=== PATIENT | female | born 1945 ===

== ENCOUNTER → 2023-10-09 10:19 | Outpatient (BNVA) | payer OTHER, MEDICAID, SELFPAY | PROVIDERS: PCP Internal Medicine; Referring Provider Internal Medicine; Visit Provider Physician Assistant Surgical | DX: J44.9 Chronic obstructive pulmonary disease, unspecified (principal); J96.91 Respiratory failure, unspecified with hypoxia; Z87.891 Personal history of nicotine dependence | CPT/HCPCS: 99215 ==

== ENCOUNTER → 2024-03-16 14:19 | Outpatient (BNVA) | payer MEDICARE, MEDICAID, SELFPAY | PROVIDERS: PCP Internal Medicine; Referring Provider Internal Medicine; Visit Provider Physician Assistant Surgical | DX: J44.9 Chronic obstructive pulmonary disease, unspecified (principal); J96.91 Respiratory failure, unspecified with hypoxia; Z87.891 Personal history of nicotine dependence | CPT/HCPCS: 99214 ==

== ENCOUNTER 2024-07-23 14:28 | Outpatient (REF) | payer MEDICARE, MEDICAID, SELFPAY ==
[2024-07-23 16:07] LABS: ALT 16 U/L (14-59); AST 22 U/L (15-37); Alkaline Phosphatase 78 U/L (46-116); BUN 18 mg/dL (7-18); Bilirubin, Total 0.2 mg/dL (0.2-1.0); CREATININE 0.4 mg/dL (0.55-1.02); Calcium 8.5 mg/dL (8.5-10.1); Chloride 96 mmol/L (98-107); Estimated GFR 101.87 (mL/min/1.73m2); Glucose 95 mg/dL (74-106); Sodium 135 mmol/L (136-145); Total Protein 5.9 g/dL (6.4-8.2)
== END 2024-07-23 14:29 | disposition home or self-care (01) ==
LOC: LBN 14:28
PROVIDERS: PCP Internal Medicine; Visit Provider Family Medicine Geriatric Medicine
DX: E78.5 Hyperlipidemia, unspecified (principal)
CPT/HCPCS: 80053

== ENCOUNTER 2024-08-03 09:48 | Inpatient (IN) | payer MEDICARE, MEDICAID, SELFPAY ==
[2024-08-03] VITALS (41 sets, daily range): BP systolic 116–146; BP diastolic 49–82; PULSE 62–129; RESP 5–29; TEMP 36.1–36.9; O2SAT 62–97
--- NOTE | 2024-08-03 09:45 | DI.RAD_ITS ---
Exam(s) XR CHEST 2V PA LATERAL EXAM: XR CHEST 2V PA LATERAL CLINICAL HISTORY: Shortness of breath TECHNIQUE: 2D digital imaging was performed. Two views. COMPARISON: CT CT CHEST WO CONTRAST from 11/02/2021 CR XR CHEST 1 VW from 01/31/2022 FINDINGS: HEART: Normal size. Aorta: Not dilated. PULMONARY VASCULATURE: Normal. MEDIASTINUM: Unremarkable. LUNGS: Jose emphysematous and fibrotic changes. No focal infiltrate or pulmonary edema. PLEURAL SPACE: No pleural effusion or pneumothorax. BONE:Multiple mid thoracic compression fractures. They appear to have worsened compared with the pre vious CT. SOFT TISSUES: Unremarkable. IMPRESSION: Emphysematous and fibrotic changes. No acute abnormality. DATA REPOSITORY: RADIATION DOSE DELIVERED:
--- NOTE | 2024-08-03 09:45 | RT.EKG_ITS ---
APPROVED REPORT Exam: Resting ECG Reason for Exam: Shortness of breath Patient Location: E HR:94 bpm ECG Measurements Heart Rate 94 AXIS CA 107 P 59 QRSd 86 QRS 22 QT 349 T 72 QTc 430 Conclusion Sinus rhythm...normal P axis, V-rate 60- 99 Atrial premature complex...SV complex w/ short R-R interval No STEMI
--- NOTE | 2024-08-03 09:55 | W.ED.GENAD ---
Discharge Plan Disposition Patient Disposition: Admit to [facility] Discharge Details Chief Complaint: RespSymp Clinical Impression: Acute respiratory failure with hypoxia and hypercarbia, COPD with acute exacerbation Admit Date/Time: 08/03/24 13:45 Admit Provider: Adilson Rodriguez Attending Provider: Adilson Rodriguez Primary Care Provider: Federico Ny ED Provider: Adilson Villalobos Discharge Data Discharge Date/Time-TO BE ENTERED AT DEPARTURE: 08/03/24 14:59 HPI General Date/Time Provider Initiated Documentation: 08/03/24 09:52. HPI Narrative: MDM This is an overall well-appearing normothermic and not tachycardic 79-year-old female with history of COPD emphysema prolonged expiratory phase with history and physical most consistent with acute COPD exacerbation for which patient will receive steroids and doxycycline. Will obtain 2 view chest x-ray to assess for pneumonia. Will also obtain ECG and troponin testing to assess for ACS. PE is on the differential and patient is low risk but not PERC negative based on age so we will obtain a D-dimer. No tearing quality to chest pain to suggest aortic dissection. No history of recent emesis to suggest increased risk for esophageal rupture. No lower extremity edema nor history of heart failure to suggest acute CHF so will defer diuresis. No trauma to chest to suggest pneumothorax. Will swab for influenza COVID and RSV. Not hypotensive nor a dialysis patient making my suspicion low for tamponade. No black no bloody stools no anticoagulation to suggest acute GI bleed. No recent chiropractic manipulation to suggest increased risk for cervical arterial dissection. Headache was not maximal in onset so I am not suspicious for subarachnoid hemorrhage I do not feel patient requires a CT of her head. Patient is not altered to suggest encephalitis. No nuchal rigidity to suggest meningitis. No generator exposure to suggest carbon monoxide toxicity. 10:42 AM CBC with normocytic anemia. No thrombocytopenia. No leukocytosis. Venous blood gas with no acidemia but moderate hypercarbia. No prior for comparison. 11 AM Reassuring initial troponin. Creatinine without ELVIA. Persistent elevation of bicarb. Mild hyperglycemia but no anion gap?test not consistent with DKA. Will repeat 1 hour troponin. Patient has been stable on home oxygen. 1:30 PM Patient had had a reassuring evaluation in the emergency department. Upon attempting an ambulatory trial patient became tachycardic into the 130s diaphoretic and hypoxic into the 60s. She recovered and is back on her 3 L nasal cannula however she will require hospitalization. Will treat for pneumonia and COPD exacerbation with amoxicillin and prednisone and doxycycline respectively. I was in touch with Dr. Rodriguez who graciously agreed to accept the patient for hospitalization. Will defer rescue BiPAP. HPI This is a 79-year-old female on chronic 3 L home oxygen arriving via EMS from local long term facility in setting of shortness of breath. Patient has had increasing shortness of breath over the past several days. She has been bringing up more sputum. She developed a gradual headache over the past several days. She has no history of heart failure. She denies any trauma to her head. She received a breathing treatment prior to arrival. Exam General: Elderly-appearing in no acute distress speaking in complete sentences. Wearing nasal cannula 3 L. Head: Normocephalic, atraumatic. Eye: Extraocular eye movements intact. No conjunctival injection. No scleral icterus. Ear, nose, mouth, throat: Grossly normal inspection. Normal voice, handling secretions normally. Neck: Trachea midline. Cardiovascular: Well-perfused distal extremities. Regular rate and rhythm Respiratory: Nonlabored respiration. Diffuse coarse breath sounds with prolonged expiratory phase. Gastrointestinal: Nondistended abdomen. Musculoskeletal: No significant lower extremity edema. Moving all 4 extremities spontaneously. Skin: Normal for age and race, grossly normal temperature and turgor. No acute rash. Neurologic: Alert and appropriate, no apparent acute deficits. Related Data Home Medications ?Medication ?Instructions ?Recorded ?Confirmed albuterol sulfate 2.5 mg/3 mL 2.5 mg inhalation QID PRN 02/06/22 08/03/24 (0.083 %) solution for nebulization amlodipine 2.5 mg tablet 2.5 mg PO DAILY 02/06/22 08/03/24 atorvastatin 20 mg tablet 20 mg PO DAILY 02/06/22 08/03/24 calcium 600 mg (as carbonate)-vit 1 tab PO BID 02/06/22 08/03/24 D3 10 mcg (400 unit)-minerals tablet citalopram 20 mg tablet 20 mg PO DAILY 02/06/22 08/03/24 docusate sodium 100 mg capsule 200 mg PO DAILY 02/06/22 08/03/24 fluticasone propionate 50 2 spray intranasal DAILY 10/12/22 04/08/25 mcg/actuation nasal spray,suspension levalbuterol tartrate 45 2 inh inhalation .Q6-8H PRN 02/06/22 08/03/24 mcg/actuation aerosol inhaler lorazepam 1 mg tablet 1 mg PO DAILY PRN 02/06/22 08/03/24 naloxone 4 mg/actuation nasal 1 spray intranasal Q2M PRN 02/06/22 08/03/24 spray (Narcan) naproxen sodium 220 mg tablet 440 mg PO ONCE PRN 02/06/22 08/03/24 (Aleve) omeprazole 40 mg capsule,delayed 40 mg PO BID 02/06/22 08/03/24 release ondansetron 8 mg disintegrating 8 mg PO Q8H PRN 02/06/22 08/03/24 tablet polyethylene glycol 3350 17 17 g PO DAILY PRN 02/06/22 08/03/24 gram/dose oral powder (Miralax) sennosides 8.6 mg tablet (senna) 34.4 mg PO DAILY 02/06/22 08/03/24 umeclidinium 62.5 mcg/actuation 1 inh inhalation DAILY 02/06/22 08/03/24 blister powder for inhalation (Incruse Ellipta) fluticasone 500 mcg-salmeterol 50 See Rx Instructions .Route 07/19/22 08/03/24 mcg/dose blistr powdr for .COMPLEX #60 ea inhalation (Advair Diskus) hydroxyzine HCl 50 mg tablet 50 mg PO TID 03/16/24 08/03/24 benralizumab 30 mg/mL subcutaneous 30 mg subcut Q4W #1 mL 05/03/24 08/03/24 auto-injector (Fasenra Pen) aspirin 81 mg tablet,delayed 81 mg PO DAILY 08/03/24 08/03/24 release (Enteric Coated Aspirin) gabapentin 100 mg capsule 200 mg PO BID 08/03/24 08/03/24 prednisone 20 mg tablet 20 mg PO DAILY 08/03/24 08/03/24 Previous Rx's ?Medication ?Instructions ?Recorded fluticasone 500 mcg-salmeterol 50 See Rx Instructions .Route 07/19/22 mcg/dose blistr powdr for .COMPLEX #60 ea inhalation (Advair Diskus) benralizumab 30 mg/mL subcutaneous 30 mg subcut Q4W #1 mL 05/03/24 auto-injector (Fasenra Pen) Allergies Allergy/AdvReac Type Severity Reaction Status Date / Time acetaminophen AdvReac Unknown Difficulty Verified 08/03/24 10:09 breathing ,sweating Medical Decision Making Quality:SDOH Health Related Social Needs: No Data to Display Critical Care Time Critical Care Time Critical Care Time: Yes Total Critical Care Time: 30 Attestation: Bedside assessment of respiratory failure with hypoxia PFSH All Active Problems (Updated 08/03/24 @ 16:03 by Adilson Villalobos MD) COPD with acute exacerbation (Acute) Acute respiratory failure with hypoxia and hypercarbia (Acute) Respiratory failure with hypoxia (Chronic) Asthma-COPD overlap syndrome (Acute) Personal history of nicotine dependence (Acute) Urge incontinence of urine (Acute) TBI (traumatic brain injury) (Acute) Peripheral edema (Acute) Neck pain (Acute) Insomnia (Acute) Hyponatremia (Acute) Hyperlipidemia (Acute) History of CVA (cerebrovascular accident) (Acute) Hiatal hernia (Chronic) Headache (Acute) Fracture of shoulder (Acute) Dyspnea on exertion (Acute) Diarrhea (Acute) Constipation (Acute) Closed fracture of left proximal humerus (Acute) Chronic rhinitis (Acute) Chronic constipation (Acute) Asthma (Chronic) Arthropathy (Acute) Anxiety (Chronic) Abdominal pain (Acute) Medical History (Updated 08/03/24 @ 16:03 by Adilson Villalobos MD) Pneumonia Surgical History (Updated 02/06/22 @ 13:41 by Ghislaine Paredes) Hx of cataract Surgery Hx of cholecystectomy History of esophagogastroduodenoscopy (EGD) 05/31/20 Social History (Updated 02/06/22 @ 13:03 by Ghislaine Paredes) Smoking/Tobacco Use Status: Former Tobacco Use tobacco type: cigarettes Quit Date: 04/28/09 Smoking risk assessment performed?: Yes Alcohol Intake: current Alcohol Intake frequency: holidays/special occasions only Drug use: Never Substance use type: does not use Housing: other Do you feel safe at home: Yes Do you feel safe in your relationship?: Yes
[2024-08-03 10:32] LABS: BE (Venous) 15 mmol/L (-2-3); HCO3 (Venous) 40 mmol/L (23-28); O2 Sat (Venous) 78 %; TCO2 (Venous) 37 mmol/L (24-29); pH (Venous) 7.39 (7.31-7.41); pO2 (Venous) 45 mmHg
[2024-08-03] MEDS: predniSONE 20 MG TAB 40 MG PO (10:33)
[2024-08-03] MEDS: Doxycycline Hyclate 100 MG CAP PO (10:33)
[2024-08-03 10:34] LABS: pCO2 (Venous) 67 mmHg (41-51)
[2024-08-03 10:35] LABS: Abs Immature Grans 0.07 10^3/uL (0.0-0.06); Absolute Basophil Count 0.06 10^3/uL (0.0-0.2); Absolute Eosinophil Count 0.52 10^3/uL (0.0-0.7); Absolute Lymphocyte Count 0.77 10^3/uL (1.2-3.4); Absolute Monocyte Count 1.23 10^3/uL (0.1-0.8); Absolute Neutrophil Count 5.27 10^3/uL (1.2-6.7); Basophils % 0.8 %; Eosinophils % 6.6 %; HCT 33.8 % (36.0-46.0); HGB 10.3 g/dL (11.2-15.7); Immature Grans % 0.9 %; Lymphocytes % 9.7 %; MCH 27.2 pg (27.0-33.0); MCHC 30.5 % (32.0-36.0); MCV 89 fL (80-95); MPV 9.7 fL (8.0-11.0); Monocytes % 15.5 %; Neutrophils % 66.5 %; Platelet Count 342 10^3/uL (130-400); RBC 3.79 10^6/uL (3.93-5.22); RDW-SD 45.6 fL; WBC 7.92 10^3/uL (4.4-10.8)
[2024-08-03 10:57] LABS: Anion Gap 1.7 mmol/L (3-11); BUN 14 mg/dL (7-18); CO2 39.3 mmol/L (21.0-32.0); CREATININE 0.4 mg/dL (0.55-1.02); Calcium 8.7 mg/dL (8.5-10.1); Chloride 92 mmol/L (98-107); Estimated GFR 101.87 (mL/min/1.73m2); Glucose 129 mg/dL (74-106); Potassium 3.7 mmol/L (3.5-5.1); Sodium 133 mmol/L (136-145); Troponin I 12 ng/L (<or=51)
[2024-08-03 10:58] LABS: COVID-19 PCR Negative (Negative); Influenza A PCR Negative (Negative); Influenza B PCR Negative (Negative); RSV PCR Negative (Negative)
--- NOTE | 2024-08-03 11:00 | DI.CT_ITS ---
Exam(s) CT CHEST PE CTA EXAM: CT CHEST PE CTA CLINICAL HISTORY: SOB. TECHNIQUE: Imaging Protocol: Axial CT angiography was performed with multi-slice acquisition and mu lti-planar reconstructions as well as axial, coronal and sagittal MIP reconstructions. Computer aided detection (CAD) was utilized. CONTRAST MATERIAL: Intravenous: Omnipaque 350 Contrast volume:50 ml COMPARISON: CT CT CHEST WO CONTRAST from 11/02/2021 CR XR CHEST 2V PA LATERAL from 08/03/2024 FINDINGS: Pulmonary Arteries: Prominent which may indicate pulmonary artery hypertension. No evidence of filli ng defect to suggest pulmonary emboli. Mediastinum and Marisa: No dominant adenopathy or fluid collection. Pulmonary parenchyma: No dominant measurable mass. Underlying emphysematous and changes. Bronchial w all thickening and mucous plugging in the right lower lobe. Adjacent areas of infiltrate versus ate lectasis. Mild atelectasis posteriorly in the left lower lobe. Pleura: No effusion or pneumothorax. Pleural scarring. Heart: The heart is not dilated. No coronary artery calcifications are seen. Aorta: Thoracic aorta non-dilated. No dissection. Upper abdomen: No acute findings. Bones: Old sternal fracture. Moderate to severe compression fractures of T7, T8 and T10. The T8 com pression fracture appears stable. T7 and T10 compression fractures have worsened. Old rib fractures . Tubes, Catheters, and Lines: None Soft tissues: Unremarkable. IMPRESSION: No evidence of pulmonary embolism. Right lower lobe bronchial thickening and distal mucous plugging with adjacent atelectasis versus inf iltrate. Underlying emphysematous and fibrotic changes. RADIATION DOSE DELIVERED: 64.7mGy.cm Total DLP DATA REPOSITORY: All CT scans at this facility are submitted to the National Radiology Data Registry (NRDR) Dose Index Registry (DIR) with the [employer] (A[employer]). RADIATION OPTIMIZATION: All CT scans at this facility use at least one of these dose optimization te chniques: automated exposure control; mA and/or kV adjustment per patient size (includes targeted exa ms where dose is matched to clinical indication); or iterative reconstruction.
[2024-08-03 11:01] LABS: D-Dimer 1438 ng/mlFEU (<500)
[2024-08-03 11:10] LABS: Source Nasopharynx
[2024-08-03 12:06] LABS: Troponin I 13 ng/L (<or=51)
[2024-08-03] MEDS: Normal Saline - Diluent 50 ML VIAL IJ (12:26)
[2024-08-03] MEDS: Omnipaque 350 MG/ML 100 ML BTL 50 ML IJ (12:27)
--- NOTE | 2024-08-03 14:45 | W.PC.ACHO ---
Registration Status: Primary Language: Preferred Language: ED Information & Data Chief Complaint RespSymp 08/03/24 09:59 Chief Complaint RespSymp 08/03/24 09:57 Triage Note pt BIBA from [facility] for 08/03/24 09:57 increased WOB in setting of COPD, was put on 6L baseline 2-3L, NEB given, pt with loose congestion, alert and oriented, sats 95 on 3L. Medical / Surgical History (Last Updated 06/24/22 @ 07:07 by Martha Whitney MD) Pneumonia (Last Updated 02/06/22 @ 13:41 by Ghislaine Paredes) Hx of cataract Hx of cholecystectomy History of esophagogastroduodenoscopy (EGD) Most Recent Vital Signs Temperature 36.9 C 08/03/24 10:01 Temperature Source Oral 08/03/24 10:01 Pulse 94 H 08/03/24 14:30 Pulse 91 H 08/03/24 14:30 Respiratory Rate 20 08/03/24 14:30 Respiratory Effort Short of Breath 08/03/24 10:02 Respiratory Depth Normal 08/03/24 10:02 Blood Pressure 116/49 L 08/03/24 10:01 Blood Pressure Mean 66 08/03/24 10:01 Blood Pressure Position Supine 08/03/24 10:01 Pulse Oximetry 92 08/03/24 14:30 Oxygen Delivery Method Nasal Cannula 08/03/24 13:35 Oxygen Flow Rate 3 08/03/24 13:35 Pain Level 4 08/03/24 10:01 Comment attempt at ambulation 08/03/24 13:21 Allergies acetaminophen Adverse Reaction (Unknown, Verified 08/03/24 10:09) Difficulty breathing ,sweating Precautions Isolation PUI 08/03/24 09:59 IV IV Catheter Type [Left Peripheral IV Antecubital] IV Catheter Type [Left Wrist] Saline Lock IV Catheter Gauge [Left 18 Antecubital] IV Catheter Gauge [Left Wrist] 18 Diet Orders Category Date Time Status DIET [Regular/Normal] [DIET] Nutrition 08/03/24 Dinner Active Diagnostics 08/03/24 08/03/24 08/03/24 Range/Units 11:44 10:53 10:25 WBC 7.92 (4.4-10.8) 10^3/uL RBC 3.79 L (3.93-5.22) 10^6/uL Hgb 10.3 L (11.2-15.7) g/dL Hct 33.8 L (36.0-46.0) % MCV 89 (80-95) fL MCH 27.2 (27.0-33.0) pg MCHC 30.5 L (32.0-36.0) % RDW 14.0 (11.7-14.6) % Plt Count 342 (130-400) 10^3/uL MPV 9.7 (8.0-11.0) fL Immature Gran % 0.9 % Neutrophils % 66.5 % Lymphocytes % 9.7 % Monocytes % 15.5 % Eosinophils % 6.6 % Basophils % 0.8 % Nucleated RBC % 0.0 (0.0-0.3) % Absolute Neutrophils 5.27 (1.2-6.7) 10^3/uL Absolute Lymphocytes 0.77 L (1.2-3.4) 10^3/uL Absolute Monocytes 1.23 H (0.1-0.8) 10^3/uL Absolute Eosinophils 0.52 (0.0-0.7) 10^3/uL Absolute Basophils 0.06 (0.0-0.2) 10^3/uL D-Dimer 1438 H (<500) ng/mlFEU VBG pH 7.39 (7.31-7.41) VBG pCO2 67 H* (41-51) mmHg VBG pO2 45 mmHg VBG HCO3 40 H (23-28) mmol/L VBG Total CO2 37 H (24-29) mmol/L VBG O2 Saturation 78 % VBG Base Excess 15 H (-2-3) mmol/L Sodium 133 L (136-145) mmol/L Potassium 3.7 (3.5-5.1) mmol/L Chloride 92 L (98-107) mmol/L Carbon Dioxide 39.3 H (21.0-32.0) mmol/L Anion Gap 1.7 L (3-11) mmol/L BUN 14 (7-18) mg/dL Creatinine 0.4 L (0.55-1.02) mg/dL Est GFR (CKD-EPI 2020) 101.87 (mL/min/1.73m2) Glucose 129 H (74-106) mg/dL Calcium 8.7 (8.5-10.1) mg/dL Troponin I 13 Cancelled 12 (<or=51) ng/L COVID-19 Source SARS-CoV-2 (PCR) (Negative) Influenza Type A (PCR) (Negative) Influenza Type B (PCR) (Negative) RSV (PCR) (Negative) 08/03/24 Range/Units 10:10 WBC (4.4-10.8) 10^3/uL RBC (3.93-5.22) 10^6/uL Hgb (11.2-15.7) g/dL Hct (36.0-46.0) % MCV (80-95) fL MCH (27.0-33.0) pg MCHC (32.0-36.0) % RDW (11.7-14.6) % Plt Count (130-400) 10^3/uL MPV (8.0-11.0) fL Immature Gran % % Neutrophils % % Lymphocytes % % Monocytes % % Eosinophils % % Basophils % % Nucleated RBC % (0.0-0.3) % Absolute Neutrophils (1.2-6.7) 10^3/uL Absolute Lymphocytes (1.2-3.4) 10^3/uL Absolute Monocytes (0.1-0.8) 10^3/uL Absolute Eosinophils (0.0-0.7) 10^3/uL Absolute Basophils (0.0-0.2) 10^3/uL D-Dimer (<500) ng/mlFEU VBG pH (7.31-7.41) VBG pCO2 (41-51) mmHg VBG pO2 mmHg VBG HCO3 (23-28) mmol/L VBG Total CO2 (24-29) mmol/L VBG O2 Saturation % VBG Base Excess (-2-3) mmol/L Sodium (136-145) mmol/L Potassium (3.5-5.1) mmol/L Chloride (98-107) mmol/L Carbon Dioxide (21.0-32.0) mmol/L Anion Gap (3-11) mmol/L BUN (7-18) mg/dL Creatinine (0.55-1.02) mg/dL Est GFR (CKD-EPI 2020) (mL/min/1.73m2) Glucose (74-106) mg/dL Calcium (8.5-10.1) mg/dL Troponin I (<or=51) ng/L COVID-19 Source Nasopharynx SARS-CoV-2 (PCR) Negative (Negative) Influenza Type A (PCR) Negative (Negative) Influenza Type B (PCR) Negative (Negative) RSV (PCR) Negative (Negative) Intake and Output - 24 Hour Total 08/03/24 09:41 thru 08/03/24 09:57 Weight 41.73 kg Falls Risk Assessment History of Falls Previous History 08/03/24 10:02 Contributing Factors Unstable,Impairments, 08/03/24 10:02 Incontinence,Medications Ambulatory Aids Uses ambulatory device 08/03/24 10:02 Tubes/Lines With any additional score 08/03/24 10:02 Gait Evaluation W/any additional score 08/03/24 10:02 Cognition No cognitive impairment 08/03/24 10:02 Fall Total Score 82 08/03/24 10:02 Level of Risk Maximum Risk 08/03/24 10:02 v v v v v v v v v Sending and/or Receiving Nurses: Please use comment section below to note any information pertinent to the patient hand-off not included above. Information / Comments: [facility]. Neuro: AxOx4 Cardiac: Telemetry, Afib, Tachycardia (Currently NSR) Resp: Baseline 2-3 LPM NC (Sating 70%-80% at [facility]) currently 3 LPM NC Loose Moist w/ Coarse Upper/Dim Bases LDA: 18g wrist, 18g LAC BP: WDL End stage COPD, Elevated D-Dimer, Right rib fx, kyphosis, Compression fx's, neb prior to admission, 750 on I/S, takes a long time to recover after desaturation, [employer] following, afibrile, Report received from: 14:30 BRI Lopez (ED)
[2024-08-03] MEDS: Albuterol/Ipratropium 3 ML UPD VIAL UPD ×2 (15:10→19:31)
--- NOTE | 2024-08-03 15:49 | HPE_ITS ---
Date of service: 08/03/24 Time of Service: 14:00 Assessment and Plan Assessment and plan (1) Respiratory failure with hypoxia: Status: Acute Assessment and plan: Pleasant, C/A O x 3, semi fowlers in bed, conversant Bilat exp wheezes Pastdasha was discharged from [facility] to [facility] on 06/16/24 s/p acute hypercapnic hypoxic resp failure for weakness requiring short term acute rehab. Chest CT: No evidence of pulmonary embolism. Right lower lobe bronchial thickening and distal mucous plugging with adjacent atelectasis versus infiltrate. Underlying emphysematous and fibrotic changes. Speaks in full sentences, afebrile, NSR, no increased WOB SPO2 on usual 3 LPM 93% with speaking Established pulmonology patient. * Oxygen Therapy: * Continue home oxygen at 3 LPM via nasal cannula. * Monitor oxygen saturation and adjust oxygen as necessary to maintain SpO2 > 88-92%. * Medications: * Steroids: Continue prednisone to manage acute COPD exacerbation. * Antibiotics: Continue doxycycline for possible bacterial infection contributing to the exacerbation. * Bronchodilators: Ensure continued use of bronchodilators (albuterol) to help relieve bronchospasm. * Monitoring: * Continue to monitor vital signs, including respiratory rate, heart rate, and oxygen saturation. * Repeat troponin and ECG as previously planned to rule out ACS. * Consider repeat arterial blood gas if the patient remains hypoxic or if there are changes in her clinical condition. * Ambulatory Status: * Limit ambulation to prevent further hypoxia and tachycardia. * Reassess need for increased oxygenation if her respiratory status worsens. * Hospitalization: * Hospitalize for further management of the COPD exacerbation, pneumonia, and possible respiratory failure. * Monitor closely for any signs of worsening respiratory failure or need for mechanical ventilation. * Patient Education: * Educate the patient and family about the signs of respiratory distress, the importance of maintaining oxygen therapy, and the need to seek care promptly if symptoms worsen. (2) Headache: Start date: 07/31/24 Start time: 16:00 Status: Acute Assessment and plan: Patient describes as usual. Acetaminophen for pain No trauma - consider head CT if worse or associated sx (3) Personal history of nicotine dependence: Status: Inactive Assessment and plan: Former Tobacco Use tobacco type: cigarettes Quit Date: 04/28/09 (4) History of CVA (cerebrovascular accident): Status: Chronic Assessment and plan: Remote past, no deficits Usually seen at [facility] - past med records requested History of Present Illness History of Present Illness Chief Complaint: Shortness of breath Narrative: This is a 79-year-old female with a history of COPD and emphysema, presenting with increasing shortness of breath over the past several days. She has been producing more sputum than usual and developed a gradual headache during this time. The patient denies any history of heart failure or recent trauma to her head. She received a breathing treatment prior to arrival. Patient was discharged from [facility] to [facility] on 06/16/24 s/p acute hypercapnic hypoxic resp failure for weakness requiring short term acute rehab. Patient arrives from [facility]. Past medical history includes chronic hypoxic respirtalory failure on 3 lpm Oxygen, sever COPD (seen by pulmonology) CAD, history of TBI, anxiety, history of CVA, hyperlipidemia, hypertension, hyponatremia, GERD, hiatal hernia, osteoporoisis and previous tobacco addiction. On physical examination, she appeared generally well, was normothermic, and was not tachycardic. Her presentation was most consistent with an acute COPD exacerbation, for which she was started on steroids and doxycycline. A two-view chest x-ray was obtained to evaluate for pneumonia, and additional tests, including an ECG and troponin levels, were ordered to assess for possible acute coronary syndrome. While pulmonary embolism was considered in the differential, the patient was low risk and did not meet the criteria for PERC negative due to her age, so a D-dimer was ordered. There was no tearing quality to her chest pain, which made aortic dissection less likely. She did not have any recent episodes of emesis, lowering the concern for esophageal rupture. Furthermore, she had no lower extremity edema or history of heart failure, which ruled out acute CHF. There was no history of trauma to her chest to suggest a pneumothorax. The patient was swabbed for influenza, COVID-19, and RSV. At the time of initial assessment, the patient was not hypotensive, nor did she have a history of dialysis, making tamponade unlikely. There were no signs of gastrointestinal bleeding, such as black or bloody stools, and the patient was not on anticoagulation. The history did not suggest an increased risk for cervical arterial dissection, and her headache was not maximal in onset, which made subarachnoid hemorrhage less likely. The patient did not exhibit any signs of encephalitis or meningitis, and there was no recent exposure to a carbon monoxide source. Initial lab results showed a normocytic anemia on CBC with no thrombocytopenia or leukocytosis. Venous blood gas showed no acidemia but moderate hypercarbia. Troponin levels were reassuring, and the creatinine was stable, with no signs of acute kidney injury. Bicarbonate levels remained elevated, and the patient had mild hyperglycemia without an anion gap, which ruled out DKA. A repeat troponin was ordered in one hour. At 1:30 PM, the patient was stable on her home oxygen. However, during an ambulatory trial, she became tachycardic, reaching heart rates in the 130s, was diaphoretic, and hypoxic with oxygen saturation in the 60s. She recovered after being placed back on her 3L nasal cannula, and hospitalization was deemed necessary. She was started on amoxicillin for pneumonia, prednisone for COPD exacerbation, and doxycycline. The patient is admitted to the medical surgical floor for further testing and treatment. The patient agrees with the plan of care. The patient is a full code. Review of Systems All systems reviewed & are unremarkable except as noted in HPI and below PFSH All Active Problems (Updated 08/03/24 @ 18:21 by Alicia Sanchez NP) COPD with acute exacerbation (Acute) Acute respiratory failure with hypoxia and hypercarbia (Acute) Respiratory failure with hypoxia (Acute) Asthma-COPD overlap syndrome (Acute) Urge incontinence of urine (Acute) TBI (traumatic brain injury) (Acute) Peripheral edema (Acute) Neck pain (Acute) Insomnia (Acute) Hyponatremia (Acute) Hyperlipidemia (Acute) History of CVA (cerebrovascular accident) (Chronic) Hiatal hernia (Chronic) Headache (Acute) Fracture of shoulder (Acute) Dyspnea on exertion (Acute) Diarrhea (Acute) Constipation (Acute) Closed fracture of left proximal humerus (Acute) Chronic rhinitis (Acute) Chronic constipation (Acute) Asthma (Chronic) Arthropathy (Acute) Anxiety (Chronic) Abdominal pain (Acute) Medical History (Updated 08/03/24 @ 18:21 by Alicia Sanchez NP) Pneumonia Surgical History (Updated 02/06/22 @ 13:41 by Ghislaine Paredes) Hx of cataract Surgery Hx of cholecystectomy History of esophagogastroduodenoscopy (EGD) 05/31/20 Social History (Updated 02/06/22 @ 13:03 by Ghislaine Paredes) Smoking/Tobacco Use Status: Former Tobacco Use tobacco type: cigarettes Quit Date: 04/28/14 Tobacco: How many years used: 15 Smoking risk assessment performed?: Yes Alcohol Intake: current Alcohol Intake frequency: holidays/special occasions only Drug use: Never Substance use type: does not use Housing: other Do you feel safe at home: Yes Do you feel safe in your relationship?: Yes Meds Allergies and Home Medications Allergies Allergy/AdvReac Type Severity Reaction Status Date / Time acetaminophen AdvReac Unknown Difficulty Verified 08/03/24 10:09 breathing ,sweating Home Medications ?Medication ?Instructions ?Recorded ?Confirmed ?Type albuterol sulfate 2.5 mg/3 mL 2.5 mg inhalation QID PRN 02/06/22 08/03/24 History (0.083 %) solution for nebulization amlodipine 2.5 mg tablet 2.5 mg PO DAILY 02/06/22 08/03/24 History atorvastatin 20 mg tablet 20 mg PO DAILY 02/06/22 08/03/24 History calcium 600 mg (as carbonate)-vit 1 tab PO BID 02/06/22 08/03/24 History D3 10 mcg (400 unit)-minerals tablet citalopram 20 mg tablet 20 mg PO DAILY 02/06/22 08/03/24 History docusate sodium 100 mg capsule 200 mg PO DAILY 02/06/22 08/03/24 History fluticasone propionate 50 2 spray intranasal DAILY 02/06/22 08/03/24 History mcg/actuation nasal spray,suspension levalbuterol tartrate 45 2 inh inhalation .Q6-8H PRN 02/06/22 08/03/24 History mcg/actuation aerosol inhaler lorazepam 1 mg tablet 1 mg PO DAILY PRN 02/06/22 08/03/24 History naloxone 4 mg/actuation nasal 1 spray intranasal Q2M PRN 02/06/22 08/03/24 History spray (Narcan) naproxen sodium 220 mg tablet 440 mg PO ONCE PRN 02/06/22 08/03/24 History (Aleve) omeprazole 40 mg capsule,delayed 40 mg PO BID 02/06/22 08/03/24 History release ondansetron 8 mg disintegrating 8 mg PO Q8H PRN 02/06/22 08/03/24 History tablet polyethylene glycol 3350 17 17 g PO DAILY PRN 02/06/22 08/03/24 History gram/dose oral powder (Miralax) sennosides 8.6 mg tablet (senna) 34.4 mg PO DAILY 02/06/22 08/03/24 History umeclidinium 62.5 mcg/actuation 1 inh inhalation DAILY 02/06/22 08/03/24 History blister powder for inhalation (Incruse Ellipta) fluticasone 500 mcg-salmeterol 50 See Rx Instructions .Route 07/19/22 08/03/24 Rx mcg/dose blistr powdr for .COMPLEX #60 ea inhalation (Advair Diskus) hydroxyzine HCl 50 mg tablet 50 mg PO TID 03/16/24 08/03/24 History benralizumab 30 mg/mL subcutaneous 30 mg subcut Q4W #1 mL 05/03/24 08/03/24 Rx auto-injector (Fasenra Pen) aspirin 81 mg tablet,delayed 81 mg PO DAILY 08/03/24 08/03/24 History release (Enteric Coated Aspirin) gabapentin 100 mg capsule 200 mg PO BID 08/03/24 08/03/24 History prednisone 20 mg tablet 20 mg PO DAILY 08/03/24 08/03/24 History Exam Narrative Exam Narrative: Vital signs and nurses notes reviewed Constitutional: Alert and oriented x3. Appears older than stated age. Normal body habitus. Head: Normocephalic, no trauma. Eyes: Pupils PERRL, EOM's intact. Eyelids symmetrical without lesions, discharge, or swelling. Chest: RRR, Normal S1, S2, distal pulses intact. Resp: Lungs distant throughout auscultation bilaterally, some exp wheezes, no rales, or rhonchi. Abdomen: Soft, non-distended, bowel sounds present Musculoskeletal: 5/5 strength to all four extremities. Skin: No suspicious rashes or lesions. Capillary refill less than 2 sec. Neurologic: Cranial nerves II-XII intact. Alert and oriented x 3. Motor: No deficits noted. Sensory: Intact bilaterally all 4 extremities. Hematologic/Lymphatic: No ecchymosis, no lymphadenopathy. Results Labs 08/03/24 10:25 08/03/24 10:25 Labs: Laboratory Results - last 24 hr 08/03/24 08/03/24 08/03/24 10:10 10:25 10:53 WBC 7.92 RBC 3.79 L Hgb 10.3 L Hct 33.8 L MCV 89 MCH 27.2 MCHC 30.5 L RDW 14.0 Plt Count 342 MPV 9.7 Immature Gran % 0.9 Neutrophils % 66.5 Lymphocytes % 9.7 Monocytes % 15.5 Eosinophils % 6.6 Basophils % 0.8 Nucleated RBC % 0.0 Absolute Neutrophils 5.27 Absolute Lymphocytes 0.77 L Absolute Monocytes 1.23 H Absolute Eosinophils 0.52 Absolute Basophils 0.06 D-Dimer 1438 H VBG pH 7.39 VBG pCO2 67 H* VBG pO2 45 VBG HCO3 40 H VBG Total CO2 37 H VBG O2 Saturation 78 VBG Base Excess 15 H Sodium 133 L Potassium 3.7 Chloride 92 L Carbon Dioxide 39.3 H Anion Gap 1.7 L BUN 14 Creatinine 0.4 L Est GFR (CKD-EPI 2020) 101.87 Glucose 129 H Calcium 8.7 Troponin I 12 Cancelled COVID-19 Source Nasopharynx SARS-CoV-2 (PCR) Negative Influenza Type A (PCR) Negative Influenza Type B (PCR) Negative RSV (PCR) Negative 08/03/24 11:44 WBC RBC Hgb Hct MCV MCH MCHC RDW Plt Count MPV Immature Gran % Neutrophils % Lymphocytes % Monocytes % Eosinophils % Basophils % Nucleated RBC % Absolute Neutrophils Absolute Lymphocytes Absolute Monocytes Absolute Eosinophils Absolute Basophils D-Dimer VBG pH VBG pCO2 VBG pO2 VBG HCO3 VBG Total CO2 VBG O2 Saturation VBG Base Excess Sodium Potassium Chloride Carbon Dioxide Anion Gap BUN Creatinine Est GFR (CKD-EPI 2020) Glucose Calcium Troponin I 13 COVID-19 Source SARS-CoV-2 (PCR) Influenza Type A (PCR) Influenza Type B (PCR) RSV (PCR) Last Vital Signs Temp 36.6 C 08/03/24 14:53 Pulse 62 08/03/24 15:18 Resp 16 08/03/24 15:10 BP 146/82 H 08/03/24 14:53 Pulse Ox 93 08/03/24 15:36 Time Spent Time spent with Patient: 40-54 minutes Time was spent: preparing to see the patient(eg.review tests), obtaining and/or reviewing separately otained hiistory, ordering medications,tests, procedures, referring, communicating with other health health and social care teacher, indepentently interpreting results, counseling the patient and care coordination
[2024-08-03] MEDS: hydrOXYzine HCL 25 MG TAB 50 MG PO ×2 (15:50→20:42)
[2024-08-03] MEDS: Amoxicillin 500 MG CAP PO (15:52)
--- NOTE | 2024-08-03 15:54 | PHA.REVIEW2 ---
Pharmacy Admission Review Admission Clinical Review Admission Pharmacy Review: acetaminophen Adverse Reaction (Unknown, Verified 08/03/24 10:09) Difficulty breathing ,sweating Resuscitation Status Full Code Height 5 ft 1 in Weight 41.73 kg Pharmacy Admission Review Renal Dosing Renal Dosing: BUN 14 mg/dL (7-18) 08/03/24 10:25 Creatinine 0.4 mg/dL (0.55-1.02) L 08/03/24 10:25 Medications needing adjustments: Reviewed (CrCl 31.03 mL/min) List of meds needing interventions: Current medications are okay Anticoagulation Anticoagulation: Hgb 10.3 g/dL (11.2-15.7) L 08/03/24 10:25 Hct 33.8 % (36.0-46.0) L 08/03/24 10:25 Plt Count 342 10^3/uL (130-400) 08/03/24 10:25 Creatinine 0.4 mg/dL (0.55-1.02) L 08/03/24 10:25 DVT Prophylaxis: Reviewed Medications: Enoxaparin (30 mg daily (BMI 17.4)) Relevant Labs Relevant Labs: Sodium 133 mmol/L (136-145) L 08/03/24 10:25 Potassium 3.7 mmol/L (3.5-5.1) 08/03/24 10:25 Chloride 92 mmol/L (98-107) L 08/03/24 10:25 Electrolytes, C-Reactive P, ESR: Reviewed Cardiac Review Cardiac Review: Troponin I 13 ng/L (<or=51) 08/03/24 11:44 Blood Pressure 146/82 1453 Blood Pressure 116/49 1001 Blood Pressure 116/49 1001 Blood Pressure 138/76 0957 Blood Pressure 144/82 0949 BP, HR, EF%: Reviewed (HR WNL, oxygen flow rate 2.5) List meds needing interventions: Has an order for amlodipine 2.5mg daily QTc Review QTc: Reviewed (430 from 08/03/24) IV to PO Switch IV Medications: Reviewed Home Meds Home Med List reviewed: Intervened (Advair to Symbicort) Relevent Home Meds Not ordered & why?: Fasenra (monthly), calcium/vitamin D3, Advair (substituted with Symbicort per pharmacy protocol), Xopenex (PRN), lorazepam (PRN), Narcan (PRN), naproxen (PRN), ondansetron (PRN) and prednisone (comment on home med list says days 11-21 of therapy) Current Meds Current Medication Order Review: Intervened Comments: Added 2nd PRN to albuterol updraft per pharmacy protocol Added 2nd PRN to Miralax per pharmacy protocol and changed order from bottle to packet Changed timing of omeprazole from to per pharmacy protocol Pharmacy Antibiotic Review Comments: Received 1 dose of amoxicillin and doxycycline, PO, in the ED. No other orders put in.
[2024-08-03] MEDS: Normal Saline 1,000 ML 75 ML IV (16:35)
--- NOTE | 2024-08-03 16:44 | RESPIRATORY ---
RT Initial Evalutation/Assessment Start: 08/03/24 16:11 Freq: .q shift and prn Status: Active Protocol: Document 08/03/24 15:18 [email or web address] (Rec: 08/03/24 16:44 [email or web address]) RT Assessment Pulmonary History Pulmonary History Asthma,COPD Smoking History Smoking/Tobacco Use Status Former Tobacco Use Tobacco: How many years used 15 Quit Date 04/28/14 Tobacco Type cigarettes OXYGEN HISTORY: Supplemental O2 At Rest 3 With Exertion 3 CPAP Settings N/A BIPAP Settings N/A Trilogy/AVAPS Settings N/A DME/Compliance DME O2 through [facility] Current Respiratory Symptoms Current Respiratory Symptoms Wheezing Respiratory Breath Sounds Breath Sounds Any abnormal sounds, decreased breath sounds Response No change Pulse Rate <100 Respiratory Rate <18 Shortness of Breath On exertion Respiratory Therapy Score Total 2 Assessment and Plan Note Patient scored a 2 (minimal score) Bronchodilator Aerosol Therapy -Continue with home regimen Lung Expansion & Bronchial Hygiene Therapy-Deep breathing /cough, IS given to patient with instructions to use Q1-2 x 10 reps while awake.
[2024-08-03] MEDS: Budesonide/Formoterol 160/4.5 6 GM 60 PUFF INH IH (19:33)
[2024-08-03] MEDS: Omeprazole 20 MG CAPCR 40 MG PO (20:42)
[2024-08-03] MEDS: Enoxaparin 30 MG/0.3 ML SYR SC (20:42)
[2024-08-03] MEDS: Gabapentin 100 MG CAP 200 MG PO (20:42)
[2024-08-03] MEDS: DOXYCYCLINE 100 MG in Normal Saline 100 ML IVPB (21:40)
[2024-08-04] VITALS (7 sets, daily range): BP systolic 128–148; BP diastolic 81–90; PULSE 70–102; RESP 8–28; TEMP 36–36.5; O2SAT 90–100
[2024-08-04] MEDS: Albuterol/Ipratropium 3 ML UPD VIAL UPD ×2 (01:27→07:46)
[2024-08-04] MEDS: Normal Saline 1,000 ML 75 ML IV (05:12)
[2024-08-04 06:44] LABS: Absolute Basophil Count 0.05 10^3/uL (0.0-0.2); Absolute Lymphocyte Count 0.81 10^3/uL (1.2-3.4); Absolute Monocyte Count 0.77 10^3/uL (0.1-0.8); Absolute Neutrophil Count 4.91 10^3/uL (1.2-6.7); Basophils % 0.8 %; HCT 28.8 % (36.0-46.0); HGB 8.8 g/dL (11.2-15.7); Immature Grans % 1.5 %; Lymphocytes % 12.2 %; MCH 27.2 pg (27.0-33.0); MCHC 30.6 % (32.0-36.0); MCV 89 fL (80-95); MPV 10.2 fL (8.0-11.0); Monocytes % 11.6 %; Neutrophils % 73.9 %; Platelet Count 303 10^3/uL (130-400); RBC 3.23 10^6/uL (3.93-5.22); RDW 14.4 % (11.7-14.6); WBC 6.64 10^3/uL (4.4-10.8)
[2024-08-04 06:56] LABS: Anion Gap -0.7 mmol/L (3-11); BUN 15 mg/dL (7-18); CO2 38.7 mmol/L (21.0-32.0); CREATININE 0.5 mg/dL (0.55-1.02); Calcium 8.8 mg/dL (8.5-10.1); Chloride 98 mmol/L (98-107); Estimated GFR 96.54 (mL/min/1.73m2); Glucose 74 mg/dL (74-106); Magnesium 1.7 mg/dL (1.8-2.4); Potassium 4.4 mmol/L (3.5-5.1); Sodium 136 mmol/L (136-145)
[2024-08-04 07:02] LABS: Diff Comment Diff Reviewed; Hypochromasia 2+
[2024-08-04] MEDS: Umeclidinium 7 CAP INHALER 1 CAP IH (07:46)
[2024-08-04] MEDS: Budesonide/Formoterol 160/4.5 6 GM 60 PUFF INH IH (07:46)
[2024-08-04] MEDS: Aspirin E.C. 81 MG TABEC PO (08:12)
[2024-08-04] MEDS: Senna TAB 4 TAB PO (08:12)
[2024-08-04] MEDS: Gabapentin 100 MG CAP 200 MG PO (08:12)
[2024-08-04] MEDS: Omeprazole 20 MG CAPCR 40 MG PO (08:12)
[2024-08-04] MEDS: Citalopram 20 MG TAB PO (08:13)
[2024-08-04] MEDS: hydrOXYzine HCL 25 MG TAB 50 MG PO (08:13)
[2024-08-04] MEDS: Docusate Sodium 100 MG CAP 200 MG PO (08:13)
[2024-08-04] MEDS: amLODIPine 2.5 MG TAB PO (08:13)
[2024-08-04] MEDS: Atorvastatin 20 MG TAB PO (08:13)
[2024-08-04] MEDS: Normal Saline Flush 10 ML SYR IVP (08:14)
[2024-08-04] MEDS: predniSONE 20 MG TAB 40 MG PO (08:14)
[2024-08-04] MEDS: Fluticasone NASAL SPRAY 16 GM BTL NS (08:18)
[2024-08-04] MEDS: Ketorolac 15 MG/ML VIAL IVP (10:19)
[2024-08-04] MEDS: Magnesium Chloride 64 MG TABCR PO (10:19)
[2024-08-04] MEDS: DOXYCYCLINE 100 MG in Normal Saline 100 ML IVPB (10:20)
[2024-08-04] MEDS: Albuterol 2.5 MG/3 ML INH SOLN VIAL UPD (10:21)
[2024-08-04] MEDS: LORazepam 0.5 MG TAB PO (11:30)
[2024-08-04] MEDS: MORPHine 2 MG/ML SYR IVP (12:15)
--- NOTE | 2024-08-04 12:30 | W.NUTRFU ---
Date of service: 08/04/24 Time of Service: 10:50 Nutrition Note NOTE: Pt asleep upon my room visit - did not disturb her. PT is a 79yo female currently residing at [facility] next door. Admitted for COPD exacerbation. weight on bedscale 41.73kg - shows ~weight loss over the last 5-6 months. Currently ordered for regular diet - fair intake per nursing.
--- NOTE | 2024-08-04 12:48 | W.PM.DS.N ---
Date of service: 08/04/24 Time of Service: 12:48 DS: Diagnosis Discharge Diagnosis (1) Respiratory failure with hypoxia: Status: Acute (2) Headache: Status: Acute (3) Personal history of nicotine dependence: Status: Inactive (4) History of CVA (cerebrovascular accident): Status: Chronic Discharge Plan Disposition Patient Disposition: Half-Way Facility(SNF) Condition: Fair Discharge Details Reason For Visit: Acute Exacerbation of COPD Admit Date/Time: 08/03/24 13:45 Admit Provider: Adilson Rodriguez Attending Provider: Adilson Rodriguez Primary Care Provider: Federico Ny Hospital Course Hospital Course: A 79-year-old female with a history of COPD, emphysema, chronic respiratory failure, and other comorbidities was admitted for increasing shortness of breath, increased sputum production, and a gradual headache. She had recently been discharged from [facility] to [facility] after an episode of acute hypercapnic hypoxic respiratory failure. Her past medical history included severe COPD, coronary artery disease, stroke, anxiety, hyperlipidemia, hypertension, GERD, osteoporosis, and a history of tobacco addiction. Upon admission, her presentation was most consistent with an acute COPD exacerbation. Initial evaluations included a chest x-ray, ECG, troponin levels, and a D-dimer to rule out other possible causes, including pneumonia, acute coronary syndrome, pulmonary embolism, and aortic dissection. A swab for influenza, COVID-19, and RSV was also performed. Labs showed normocytic anemia, moderate hypercarbia, and mild hyperglycemia. Troponin levels were reassuring, and there were no signs of acute kidney injury. The patient's oxygen saturation improved with supplemental oxygen, but during an ambulatory trial, she became tachycardic, diaphoretic, and hypoxic, which necessitated hospitalization. She was treated with prednisone and doxycycline for COPD exacerbation. The patient continued on 3L of oxygen and stabilized with an oxygen saturation above 88%. Patient should continue prednisone with taper. Patient is on 20 mg chronically. The patient experiences significant anxiety, which exacerbates her shortness of breath when she becomes distressed. However, she responded well to lorazepam and was able to sit up and eat lunch. While her usual shortness of breath persisted, she was able to speak in full sentences while on 3 LPM of nasal oxygen. With exertion, her oxygen saturation remained above 88%, which is considered acceptable for her condition. Recommend lorazepam prn for her anxiety. The patient has end-stage COPD, and periods of acute shortness of breath are expected. These episodes should be managed with nebulizers, anxiety treatments, and steroids. The patient agreed with the treatment plan and was discharged stable back to the [facility] with a plan for follow-up care. She remains a full code. Home Meds and New Rx's Prescriptions: New doxycycline hyclate 100 mg Recon Soln 100 mg IVPB Q12H Qty: 18 0RF magnesium chloride [Mag 64] 64 mg Tablet,Delayed Release (Dr/Ec) 64 mg PO DAILY Qty: 30 0RF lorazepam 0.5 mg tablet 0.5 mg PO TID PRN (Reason: anxiety) Qty: 30 0RF prednisone 20 mg tablet See Taper PO DAILY Qty: 20 0RF Taper: Prednisone 20mg taper 40 mg Daily for 5 Days and 0 Hour 20 mg Daily for 30 Days and 0 Hour Continued hydroxyzine HCl 50 mg tablet 50 mg PO TID albuterol sulfate 2.5 mg /3 mL (0.083 %) solution for nebulization 2.5 mg inhalation QID PRN naproxen sodium [Aleve] 220 mg tablet 440 mg PO ONCE PRN amlodipine 2.5 mg tablet 2.5 mg PO DAILY atorvastatin 20 mg tablet 20 mg PO DAILY calcium carbonate-vit D3-min 600 mg calcium- 400 unit tablet 1 tab PO BID citalopram 20 mg tablet 20 mg PO DAILY docusate sodium 100 mg capsule 200 mg PO DAILY fluticasone propionate 50 mcg/actuation spray,suspension 2 spray intranasal DAILY Rx Instructions: administer into each nostril Incruse Ellipta 62.5 mcg/actuation blister with device 1 inh inhalation DAILY levalbuterol tartrate 45 mcg/actuation HFA aerosol inhaler 2 inh inhalation .Q6-8H PRN lorazepam 1 mg tablet 1 mg PO DAILY PRN polyethylene glycol 3350 [Miralax] 17 gram/dose powder 17 g PO DAILY PRN naloxone [Narcan] 4 mg/actuation spray,non-aerosol 1 spray intranasal Q2M PRN Rx Instructions: spray 1 dose into ONE nostril; alternate nostrils w each dose until help arrives omeprazole 40 mg capsule,delayed release(DR/EC) 40 mg PO BID ondansetron 8 mg tablet,disintegrating 8 mg PO Q8H PRN sennosides [senna] 8.6 mg tablet 34.4 mg PO DAILY fluticasone propion-salmeterol [Advair Diskus] 500-50 mcg/dose blister with device See Rx Instructions .ROUTE .COMPLEX Qty: 60 12RF Dose Instruction: INHALE 1 PUFF BY MOUTH TWICE A DAY Rx Instructions: INHALE 1 PUFF BY MOUTH TWICE A DAY Fasenra Pen 30 mg/mL auto-injector 30 mg subcut Q4W Qty: 1 12RF aspirin [Enteric Coated Aspirin] 81 mg tablet,delayed release (DR/EC) 81 mg PO DAILY gabapentin 100 mg capsule 200 mg PO BID Changed prednisone 20 mg tablet 40 mg PO DAILY Qty: 0 0RF Rx Instructions: days 11-21 of therapy Discharge Instructions Referrals: Federico Ny [Primary Care Provider] - (Post hospitalization follow up ) Activity:: Activity as Tolerated Equipment/Supplies:: Oxygen (L/min Below) Diet:: As Tolerated Discharge Orders Discharge Orders: Discharge Order (Routine); Ordered 08/04/24 Ordered By: Alicia Sanchez DS: Summary Time Spent with Patient providing and/or coordinating discharge services: Greater than 30 minutes Status at Discharge Functional status at discharge: uses cane/walker Overall status at discharge: patient is back to baseline Mental Status: mental status grossly normal Speech and Movement: speech and movement normal Mood: congruent mood Affect: normal affect Quality:SDOH Health Related Social Needs: No Data to Display Exam Narrative Exam Narrative: Vital signs and nurses notes reviewed Constitutional: Alert and oriented x3. Appears older than stated age. Normal body habitus. Head: Normocephalic, no trauma. Eyes: Pupils PERRL, EOM's intact. Eyelids symmetrical without lesions, discharge, or swelling. Chest: RRR, Normal S1, S2, distal pulses intact. Resp: Lungs distant throughout auscultation bilaterally, some exp wheezes, no rales, or rhonchi. Abdomen: Soft, non-distended, bowel sounds present Musculoskeletal: 5/5 strength to all four extremities. Skin: No suspicious rashes or lesions. Capillary refill less than 2 sec. Neurologic: Cranial nerves II-XII intact. Alert and oriented x 3. Motor: No deficits noted. Sensory: Intact bilaterally all 4 extremities. Hematologic/Lymphatic: No ecchymosis, no lymphadenopathy. Psych Mental Status: mental status grossly normal Speech and Movement: speech and movement normal Mood: congruent mood Affect: normal affect DS: Data Vitals/I&O Vitals and I&O: Vital Signs Temperature 36.5 C 08/04/24 08:09 Temperature Source Temporal Artery Scan 08/04/24 08:09 Pulse 102 H 08/04/24 10:34 Pulse Rhythm Irregular 08/03/24 14:53 Pulse 91 H 08/03/24 14:30 Respiratory Rate 28 H 08/04/24 10:34 Respiratory Effort Short of Breath, Accessory Muscle Use, Incrsd Work of Breathing 08/03/24 14:53 Respiratory Depth Shallow 08/03/24 14:53 Respiratory Pattern Tachypnea 08/03/24 14:53 Blood Pressure 148/81 H 08/04/24 08:09 Blood Pressure Mean 66 08/03/24 10:01 Blood Pressure Position Supine 08/03/24 10:01 Pulse Oximetry 92 08/04/24 10:34 Oxygen Delivery Method Nasal Cannula 08/04/24 10:20 Oxygen Flow Rate 3 08/04/24 10:20 Pain Level 5 08/04/24 10:19 Comment RN notified 08/04/24 08:09 Comment attempt at ambulation 08/03/24 13:21 Intake & Output 08/03/24 08/04/24 08/04/24 23:59 11:59 23:59 Intake Total 340 / 340 1056.25 / 1056.25 Output Total 350 / 350 Balance 340 / 340 706.25 / 706.25 Weight 41.73 kg Intake: IV 100 / 100 1056.25 / 1056.25 Oral 240 / 240 Output: Urine 350 / 350 Other: Urine Color Light Mayela Urine Appearance Clear Urine Odor Normal Comment pt's gown, maryjane, and brief were changed while on the commode Data Completed and Pending Labs on day of discharge: Labs from last 24 hours 08/04/24 08/04/24 05:49 02:17 WBC 6.64 RBC 3.23 L Hgb 8.8 L Hct 28.8 L MCV 89 MCH 27.2 MCHC 30.6 L RDW 14.4 Plt Count 303 MPV 10.2 Immature Gran % 1.5 Neutrophils % 73.9 Lymphocytes % 12.2 Monocytes % 11.6 Eosinophils % 0.0 Basophils % 0.8 Nucleated RBC % 0.0 Absolute Neutrophils 4.91 Absolute Lymphocytes 0.81 L Absolute Monocytes 0.77 Absolute Eosinophils 0.00 Absolute Basophils 0.05 RBC Morphology See Below Hypochromasia 2+ Sodium 136 Potassium 4.4 Chloride 98 Carbon Dioxide 38.7 H Anion Gap -0.7 L BUN 15 Creatinine 0.5 L Est GFR (CKD-EPI 2020) 96.54 Glucose 74 Calcium 8.8 Magnesium 1.7 L Urine Legionella Ag Pending Ur Strep pneumoniae Ag Pending 08/04/24 09:17 Sputum Sputum Culture - Pending Preliminary micro results at discharge 08/04/24 09:17 Sputum Culture - Pending Sputum PFSH All Active Problems (Updated 08/03/24 @ 18:21 by Alicia Sanchez NP) COPD with acute exacerbation (Acute) Acute respiratory failure with hypoxia and hypercarbia (Acute) Respiratory failure with hypoxia (Acute) Asthma-COPD overlap syndrome (Acute) Urge incontinence of urine (Acute) TBI (traumatic brain injury) (Acute) Peripheral edema (Acute) Neck pain (Acute) Insomnia (Acute) Hyponatremia (Acute) Hyperlipidemia (Acute) History of CVA (cerebrovascular accident) (Chronic) Hiatal hernia (Chronic) Headache (Acute) Fracture of shoulder (Acute) Dyspnea on exertion (Acute) Diarrhea (Acute) Constipation (Acute) Closed fracture of left proximal humerus (Acute) Chronic rhinitis (Acute) Chronic constipation (Acute) Asthma (Chronic) Arthropathy (Acute) Anxiety (Chronic) Abdominal pain (Acute) Medical History (Updated 08/03/24 @ 18:21 by Alicia Sanchez NP) Pneumonia Surgical History (Updated 02/06/22 @ 13:41 by Ghislaine Paredes) Hx of cataract Surgery Hx of cholecystectomy History of esophagogastroduodenoscopy (EGD) 05/31/20 Social History (Updated 02/06/22 @ 13:03 by Ghislaine Paredes) Smoking/Tobacco Use Status: Former Tobacco Use tobacco type: cigarettes Quit Date: 04/28/14 Tobacco: How many years used: 15 Smoking risk assessment performed?: Yes Alcohol Intake: current Alcohol Intake frequency: holidays/special occasions only Drug use: Never Substance use type: does not use Housing: other Do you feel safe at home: Yes Do you feel safe in your relationship?: Yes Time Spent with Patient Time Spent with Patient: 45-69 minutes Time was spent: preparing to see the patient(eg.review tests), ordering medications,tests, procedures, referring, communicating with other health career center director, indepentently interpreting results, counseling the patient and care coordination
[2024-08-04 18:30] LABS: Legionella Ag Detection Urine Negative (Negative)
[2024-08-06 14:12] LABS: Streptococcus Pneumoniae Ag, U Negative (Negative)
== END 2024-08-04 13:07 | disposition skilled nursing facility (03) | DRG 190 ==
LOC: ER 11:19 → MS 14:41
PROVIDERS: Admitting Provider Family Medicine; Emergency Provider Emergency Medicine; PCP Internal Medicine; Responsible Provider Nurse Practitioner Family; Visit Provider Family Medicine
DX: J44.1 Chronic obstructive pulmonary disease with (acute) exacerbation (principal); J96.02 Acute respiratory failure with hypercapnia; J96.21 Acute and chronic respiratory failure with hypoxia; E87.1 Hypo-osmolality and hyponatremia; D64.9 Anemia, unspecified; Z99.81 Dependence on supplemental oxygen; N39.41 Urge incontinence; R60.0 Localized edema; M54.2 Cervicalgia; G47.00 Insomnia, unspecified; E78.5 Hyperlipidemia, unspecified; Z86.73 Personal history of transient ischemic attack (TIA), and cerebral infarction without residual deficits; K44.9 Diaphragmatic hernia without obstruction or gangrene; F41.9 Anxiety disorder, unspecified; Z87.891 Personal history of nicotine dependence; R51.9 Headache, unspecified; I25.10 Atherosclerotic heart disease of native coronary artery without angina pectoris; I10 Essential (primary) hypertension; K21.9 Gastro-esophageal reflux disease without esophagitis; M81.0 Age-related osteoporosis without current pathological fracture
CPT/HCPCS: 00123; 36415; 71275; 80048; 82805; 87449; 87637; 93005; 94640; 99291; 71046; 83735; 84484; 85025; 85379; 87070; 87205; 87899; 93010; 94664; 94667; 94668; 94760; 99222; 99239; J1650; J1885; J2270; J3490; J7512; J7613; J7620

== ENCOUNTER 2024-09-06 11:26 | Inpatient (IN) | payer MEDICARE, MEDICAID, SELFPAY ==
[2024-09-06] VITALS (127 sets, daily range): BP systolic 76–181; BP diastolic 39–112; PULSE 79–115; RESP 2–35; TEMP 36.8–37.1; O2SAT 53–100
--- NOTE | 2024-09-06 11:30 | RT.EKG_ITS ---
APPROVED REPORT Exam: Resting ECG Reason for Exam: SOB Patient Location: E HR:92 bpm ECG Measurements Heart Rate 92 AXIS [place] 124 P 75 QRSd 84 QRS -5 QT 369 T 80 QTc 456 Conclusion Sinus rhythm 92 normal axis no stemi
--- NOTE | 2024-09-06 11:30 | DI.RAD_ITS ---
Exam(s) XR PORTABLE CHEST AP EXAM: XR PORTABLE CHEST AP CLINICAL HISTORY: sob TECHNIQUE: 2D digital imaging was performed of the chest. One image was obtained. An AP view was ob tained. COMPARISON: CT CT CHEST PE CTA from 08/03/2024 CR XR CHEST 2V PA LATERAL from 08/03/2024 FINDINGS: MEDIASTINUM: Normal. HEART: Normal. PULMONARY VASCULATURE: Normal. LUNGS: There is diffuse pulmonary fibrosis present. No focal consolidating infiltrates are seen. Br onchial wall thickening is also again noted. PLEURAL SPACE: No pleural effusion or pneumothorax. BONE:Within normal limits for the patient's age. There is an S-type scoliotic curvature of the thorac olumbar spine. There is disruption of the cortex at the inferior aspect of the posterior right 4th r ib not apparent on the prior examination. Findings are suspicious for an acute fracture. OTHER FINDINGS:Normal. IMPRESSION: 1. No focal consolidating infiltrates are seen. 2. Chronic changes are seen in the lungs including bronchial wall thickening and pulmonary fibrosis. These appears stable. 3. Question of a nondisplaced fracture involving the posterior aspect of the right 4th rib. DATA REPOSITORY: RADIATION DOSE DELIVERED:
[2024-09-06 12:02] LABS: BE (Venous) 13 mmol/L (-2-3); HCO3 (Venous) 40 mmol/L (23-28); O2 Sat (Venous) 57 %; TCO2 (Venous) 38 mmol/L (24-29); pH (Venous) 7.28 (7.31-7.41); pO2 (Venous) 34 mmHg
[2024-09-06 12:03] LABS: Abs Immature Grans 0.06 10^3/uL (0.0-0.06); Absolute Basophil Count 0.04 10^3/uL (0.0-0.2); Absolute Eosinophil Count 0.07 10^3/uL (0.0-0.7); Absolute Lymphocyte Count 0.46 10^3/uL (1.2-3.4); Absolute Monocyte Count 0.76 10^3/uL (0.1-0.8); Absolute Neutrophil Count 8.96 10^3/uL (1.2-6.7); Basophils % 0.4 %; Eosinophils % 0.7 %; HCT 32.7 % (36.0-46.0); Immature Grans % 0.6 %; Lymphocytes % 4.4 %; MCH 26.7 pg (27.0-33.0); MCHC 30.6 % (32.0-36.0); MCV 87 fL (80-95); MPV 9.7 fL (8.0-11.0); Monocytes % 7.3 %; Neutrophils % 86.6 %; Platelet Count 318 10^3/uL (130-400); RBC 3.75 10^6/uL (3.93-5.22); RDW 14.3 % (11.7-14.6); RDW-SD 45.8 fL; WBC 10.35 10^3/uL (4.4-10.8)
[2024-09-06 12:04] LABS: pCO2 (Venous) 84 mmHg (41-51)
[2024-09-06] MEDS: methylPREDNISolone SUCC 125 MG VIAL IM (12:04)
[2024-09-06] MEDS: Normal Saline Flush 10 ML SYR IVP ×2 (12:04→18:39)
[2024-09-06] MEDS: Albuterol/Ipratropium 3 ML UPD VIAL UPD ×5 (12:08→23:06)
[2024-09-06] MEDS: MAGNESIUM SULFATE 2 GM/50 ML BAG IVINF (12:09)
[2024-09-06 12:12] LABS: INR 0.9 (0.9-1.1); Prothrombin Time 8.9 sec (9.1-11.1)
[2024-09-06 12:29] LABS: ALT 19 U/L (14-59); AST 23 U/L (15-37); Albumin 3.2 g/dL (3.4-5.0); Alkaline Phosphatase 63 U/L (46-116); Anion Gap -1.5 mmol/L (3-11); BUN 16 mg/dL (7-18); Bilirubin, Total 0.2 mg/dL (0.2-1.0); CO2 40.5 mmol/L (21.0-32.0); CREATININE 0.6 mg/dL (0.55-1.02); Calcium 8.3 mg/dL (8.5-10.1); Chloride 93 mmol/L (98-107); Estimated GFR 92.39 (mL/min/1.73m2); Glucose 139 mg/dL (74-106); Magnesium 1.6 mg/dL (1.8-2.4); NT-proBNP 169 pg/mL (<300); Potassium 3.5 mmol/L (3.5-5.1); Sodium 132 mmol/L (136-145); Total Protein 6.2 g/dL (6.4-8.2); Troponin I 10 ng/L (<or=51)
--- NOTE | 2024-09-06 13:11 | HPE_ITS ---
<Statement entered by Adilson Rodriguez - 09/06/24 17:58> After patient needed to go back on BiPAP in the ED I went to evaluated and examine the patient myself. She was initially slighly somnolent but wakes and becomes alert and oriented. She will continue on BiPAP to improve her hypercarbia and allow her to rest. She also did get lorazepam after her initial evaluation which may be contributing to her sleepiness. I agree with treating COPD with steroids/antibiotics, initially IV, along with bronchodiltors and supportive care. She will remain in the ICU overnight for close monitoring. Echocardiogram in AM as although her EKG/trops and BNaP were reassuring, her BP did drop on BiPAP suggesting preload dependance, would be good to assess heart function and pulmonary pressures. Date of service: 09/06/24 Time of Service: 13:11 Assessment and Plan Assessment and plan (1) Acute respiratory failure with hypoxia and hypercarbia: Status: Acute Assessment and plan: As per VBG showing no compensation with PH 7.28, PCO2 84, HCO3 40 PO2 38. Most likely d/t COPD exacerbation Symptomatology and EKG negative for PE, no DVT/ leg [id number] with age cut-off at 770 SABAS-- negative BNP negative Echo in AM CPAP in the ED Repeat VBG 7.3/75/37/35 O2 and wean for sat 88% and >- On 3l/min at baseline with decompensation with ADL down to 76% and subsequently to 53% CPAP Doxycycline IV IV steroids then oral prednisone when able Duonebs and PRN albuterol Acapella (2) Asthma-COPD overlap syndrome: Status: Acute Assessment and plan: Hx of was on Fasenra as per pulmonology - As per notes this was decreasing incidences of exacerbation Seems not to take at this time continue home meds (3) Hyponatremia: Status: Acute Assessment and plan: Na 132 - chronic On oral NaCl (4) COPD with acute exacerbation: Status: Acute Assessment and plan: On daily prednisone s/p IV steroid in the ED (5) On deep vein thrombosis (DVT) prophylaxis: Status: Acute Assessment and plan: ON LMWH discussed with Dr. Rodriguez History of Present Illness History of Present Illness Chief Complaint: Worsening SOB Narrative: This 79-year-old female from [facility]. with a history of mixed asthma COPD syndrome and emphysema on chronic oxygen at 3l/min, presenting with worsening shortness of breath over the past few days.The patient was recently discharged from [facility] on 08/04/24 s/p admission for similar presentation, she was treated with IV antibiotic at the time. VBG showed PH 7.28, PCO2 84, PO2 38, HCO3 40. CPAP was initiated in the ED. Blood work showed Na 132, Mg 1.6, no leukocytosis. CXR was negative for infiltrates. IV doxycycline and ceftriaxone, methylprednisolone, magnesium initiated in the ED. Troponin negative X1, EKG showed no coronary occlusion.Saturation in oxygen dropped to 76% as as per provider report. The patient was admitted to the medical surgical floor byt hospitalist team for acute on chronic hypoxic hypercapnic respiratory failure in the setting of COPD exacerbation.Respiratory viral panel not completed and reordered, D-dimer ordered. Other past medical history includes being seen by pulmonology, CAD, history of TBI, anxiety, history of CVA, hyperlipidemia, hypertension, hyponatremia, GERD, hiatal hernia, osteoporoisis and previous tobacco addiction, chronic pain on oxycodone as needed at home. Full code status confirmed with patient. The patient was unable to maintain her saturation in Oxygen above 88% on baseline O2, dropping down to 53% as per recorded vital signs; worsening third VBG values. The patient will be transferred to ICU s/p discussion with Dr. Rodriguez. Reports headache, denies fever, chest pain, diarrhea but ROS remains limited d/t confusion; stated that she leaves in [place], not being admitted last month and not knowing what meds she takes. Review of Systems All systems reviewed & are unremarkable except as noted in HPI and below PFSH All Active Problems (Updated 09/06/24 @ 14:23 by Courtney Rodríguez MD) On deep vein thrombosis (DVT) prophylaxis (Acute) COPD with acute exacerbation (Acute) Acute respiratory failure with hypoxia and hypercarbia (Acute) Asthma-COPD overlap syndrome (Acute) Urge incontinence of urine (Acute) TBI (traumatic brain injury) (Acute) Peripheral edema (Acute) Neck pain (Acute) Insomnia (Acute) Hyponatremia (Acute) Hyperlipidemia (Acute) Hiatal hernia (Chronic) Headache (Acute) Fracture of shoulder (Acute) Dyspnea on exertion (Acute) Diarrhea (Acute) Constipation (Acute) Closed fracture of left proximal humerus (Acute) Chronic rhinitis (Acute) Chronic constipation (Acute) Asthma (Chronic) Arthropathy (Acute) Anxiety (Chronic) Abdominal pain (Acute) Medical History (Updated 09/06/24 @ 14:23 by Courtney Rodríguez MD) Personal history of nicotine dependence History of CVA (cerebrovascular accident) Pneumonia Surgical History (Updated 02/06/22 @ 13:41 by Ghislaine Paredes) Hx of cataract Surgery Hx of cholecystectomy History of esophagogastroduodenoscopy (EGD) 05/31/20 Social History (Updated 02/06/22 @ 13:03 by Ghislaine Paredes) Smoking/Tobacco Use Status: Former Tobacco Use tobacco type: cigarettes Quit Date: 04/28/14 Tobacco: How many years used: 15 Smoking risk assessment performed?: Yes Alcohol Intake: current Alcohol Intake frequency: holidays/special occasions only Drug use: Never Substance use type: does not use Housing: [facility] Do you feel safe at home: Yes Do you feel safe in your relationship?: Yes Meds Allergies and Home Medications Allergies Allergy/AdvReac Type Severity Reaction Status Date / Time acetaminophen AdvReac Unknown Difficulty Verified 09/06/24 11:30 breathing ,sweating Home Medications ?Medication ?Instructions ?Recorded ?Confirmed ?Type albuterol sulfate 2.5 mg/3 mL 2.5 mg inhalation QID PRN 02/06/22 09/06/24 History (0.083 %) solution for nebulization amlodipine 2.5 mg tablet 2.5 mg PO DAILY 02/06/22 09/06/24 History atorvastatin 20 mg tablet 20 mg PO DAILY 02/06/22 09/06/24 History calcium 600 mg (as carbonate)-vit 1 tab PO BID 02/06/22 09/06/24 History D3 10 mcg (400 unit)-minerals tablet citalopram 20 mg tablet 20 mg PO DAILY 02/06/22 09/06/24 History docusate sodium 100 mg capsule 200 mg PO DAILY 02/06/22 09/06/24 History fluticasone propionate 50 2 spray intranasal DAILY 02/06/22 09/06/24 History mcg/actuation nasal spray,suspension levalbuterol tartrate 45 2 inh inhalation .Q6-8H PRN 02/06/22 09/06/24 History mcg/actuation aerosol inhaler lorazepam 1 mg tablet 1 mg PO DAILY PRN 02/06/22 09/06/24 History naloxone 4 mg/actuation nasal 1 spray intranasal Q2M PRN 02/06/22 09/06/24 History spray (Narcan) naproxen sodium 220 mg tablet 440 mg PO ONCE PRN 02/06/22 09/06/24 History (Aleve) omeprazole 40 mg capsule,delayed 40 mg PO BID 02/06/22 09/06/24 History release ondansetron 8 mg disintegrating 8 mg PO Q8H PRN 02/06/22 09/06/24 History tablet polyethylene glycol 3350 17 17 g PO DAILY PRN 02/06/22 09/06/24 History gram/dose oral powder (Miralax) sennosides 8.6 mg tablet (senna) 34.4 mg PO DAILY 02/06/22 09/06/24 History umeclidinium 62.5 mcg/actuation 1 inh inhalation DAILY 02/06/22 09/06/24 History blister powder for inhalation (Incruse Ellipta) fluticasone 500 mcg-salmeterol 50 See Rx Instructions .Route 07/19/22 09/06/24 Rx mcg/dose blistr powdr for .COMPLEX #60 ea inhalation (Advair Diskus) hydroxyzine HCl 50 mg tablet 50 mg PO TID 03/16/24 09/06/24 History benralizumab 30 mg/mL subcutaneous 30 mg subcut Q4W #1 mL 05/03/24 09/06/24 Rx auto-injector (Fasenra Pen) aspirin 81 mg tablet,delayed 81 mg PO DAILY 08/03/24 09/06/24 History release (Enteric Coated Aspirin) gabapentin 100 mg capsule 200 mg PO BID 08/03/24 09/06/24 History doxycycline hyclate 100 mg 100 mg IVPB Q12H #18 ea 08/04/24 09/06/24 Rx intravenous powder for solution lorazepam 0.5 mg tablet 0.5 mg PO TID PRN anxiety #30 tabs 08/04/24 09/06/24 Rx magnesium chloride 64 mg 64 mg PO DAILY #30 tabs 08/04/24 09/06/24 Rx (magnesium chloride) tablet,delayed release (Mag 64) prednisone 20 mg tablet 40 mg (2 x 20 mg) PO DAILY #0 tabs 08/04/24 09/06/24 Rx prednisone 20 mg tablet See Taper PO DAILY #20 tabs 08/04/24 09/06/24 Rx acetylcysteine 600 mg capsule 600 mg PO BID 09/06/24 09/06/24 History aluminum-mag hydroxide-simethicone 15 ml PO Q6H PRN 09/06/24 09/06/24 History 200 mg-200 mg-20 mg/5 mL oral susp (Advanced Antacid-[place]igas) celecoxib 200 mg capsule (Celebrex) 200 mg PO BID 09/06/24 09/06/24 History esomeprazole magnesium 40 mg 40 mg PO DAILY 09/06/24 09/06/24 History capsule,delayed release guaifenesin 100 mg/5 mL oral 100 mg PO Q4H PRN 09/06/24 09/06/24 History liquid (Adult Tussin Chest Congestion) lidocaine 5 % topical patch 1 patch topical DAILY 09/06/24 09/06/24 History loperamide 2 mg capsule 2 mg PO Q6H PRN 09/06/24 09/06/24 History (Anti-Diarrheal (loperamide)) loratadine 10 mg tablet 10 mg PO DAILY 09/06/24 09/06/24 History (Allerclear) melatonin 3 mg tablet 3 mg PO QHS 09/06/24 09/06/24 History oxycodone 5 mg tablet 5 mg PO Q6H PRN 09/06/24 09/06/24 History sodium chloride 1 g PO TID 09/06/24 09/06/24 History Exam Narrative Exam Narrative: Constitutional 79 yo female looking older than stated age, initially asleep on CPAP and waking up with tactile stimuli,sitting on stretcher w/o increased in WOB during conversation confused but neurologically intact HENMT: Facial structures with normal appearance, Eyes: Well aligned , non-icteric sclera Neck: No JVD Resp: Shallow respiratory pattern, speaks in short sentences, decreased left base, velcro-like fimr crackles to RLL Cardio: SR HR 91 on EKG ,regular rhythm, S1, S2, no murmur, capillary refill<3 sec., bilateral radial and dorsalis pedis pulses are positive, palpable GI: Abdomen is not distended, soft and non tender, bowel sounds are present Integumentary: No skin lesions or rash to exposed skin Extremities: moves all 4 extremities Psych: RASS 0, congruent mood and normal affect. Results Labs 09/06/24 11:50 09/06/24 11:50 Labs: Laboratory Results - last 24 hr 09/06/24 09/06/24 11:50 14:40 WBC 10.35 RBC 3.75 L Hgb 10.0 L Hct 32.7 L MCV 87 MCH 26.7 L MCHC 30.6 L RDW 14.3 Plt Count 318 MPV 9.7 Immature Gran % 0.6 Neutrophils % 86.6 Lymphocytes % 4.4 Monocytes % 7.3 Eosinophils % 0.7 Basophils % 0.4 Nucleated RBC % 0.0 Absolute Neutrophils 8.96 H Absolute Lymphocytes 0.46 L Absolute Monocytes 0.76 Absolute Eosinophils 0.07 Absolute Basophils 0.04 PT 8.9 L INR 0.9 VBG pH 7.28 L VBG pCO2 84 H* VBG pO2 34 VBG HCO3 40 H VBG Total CO2 38 H VBG O2 Saturation 57 VBG Base Excess 13 H Sodium 132 L Potassium 3.5 Chloride 93 L Carbon Dioxide 40.5 H Anion Gap -1.5 L BUN 16 Creatinine 0.6 Est GFR (CKD-EPI 2020) 92.39 Glucose 139 H Calcium 8.3 L Magnesium 1.6 L Total Bilirubin 0.2 AST 23 ALT 19 Alkaline Phosphatase 63 Troponin I 10 Cancelled NT-Pro-B Natriuret Pep 169 Total Protein 6.2 L Albumin 3.2 L Last Vital Signs Temp 37.1 C 09/06/24 11:26 Pulse 97 H 09/06/24 12:30 Resp 24 09/06/24 12:30 BP 147/85 H 09/06/24 12:30 Pulse Ox 95 09/06/24 12:30 Time Spent Time spent with Patient: >75 minutes Time was spent: preparing to see the patient(eg.review tests), obtaining and/or reviewing separately otained hiistory, ordering medications,tests, procedures, referring, communicating with other health healthcare science specialist, indepentently interpreting results, counseling the patient and care coordination
[2024-09-06 13:27] LABS: BE (Venous) 10 mmol/L (-2-3); HCO3 (Venous) 37 mmol/L (23-28); O2 Sat (Venous) 64 %; TCO2 (Venous) 35 mmol/L (24-29); pO2 (Venous) 37 mmHg
[2024-09-06 13:28] LABS: pCO2 (Venous) 75 mmHg (41-51)
[2024-09-06 13:32] LABS: Troponin I 12 ng/L (<or=51)
[2024-09-06] MEDS: DOXYCYCLINE 100 MG in Normal Saline 100 ML IVPB ×2 (14:15→21:49)
--- NOTE | 2024-09-06 14:15 | W.ED.GENAD ---
Discharge Plan Disposition Patient Disposition: Admit to [facility] Condition: Serious Discharge Details Chief Complaint: SOB/SuddenOnset Clinical Impression: COPD with acute exacerbation, Acute respiratory failure with hypoxia and hypercarbia Primary Care Provider: Federico Ny ED Provider: Courtney Rodríguez Home Meds and New Rx's Prescriptions: No Action hydroxyzine HCl 50 mg tablet 50 mg PO TID albuterol sulfate 2.5 mg /3 mL (0.083 %) solution for nebulization 2.5 mg inhalation QID PRN naproxen sodium [Aleve] 220 mg tablet 440 mg PO ONCE PRN amlodipine 2.5 mg tablet 2.5 mg PO DAILY atorvastatin 20 mg tablet 20 mg PO DAILY calcium carbonate-vit D3-min 600 mg calcium- 400 unit tablet 1 tab PO BID citalopram 20 mg tablet 20 mg PO DAILY docusate sodium 100 mg capsule 200 mg PO DAILY fluticasone propionate 50 mcg/actuation spray,suspension 2 spray intranasal DAILY Rx Instructions: administer into each nostril Incruse Ellipta 62.5 mcg/actuation blister with device 1 inh inhalation DAILY levalbuterol tartrate 45 mcg/actuation HFA aerosol inhaler 2 inh inhalation .Q6-8H PRN lorazepam 1 mg tablet 1 mg PO DAILY PRN polyethylene glycol 3350 [Miralax] 17 gram/dose powder 17 g PO DAILY PRN naloxone [Narcan] 4 mg/actuation spray,non-aerosol 1 spray intranasal Q2M PRN Rx Instructions: spray 1 dose into ONE nostril; alternate nostrils w each dose until help arrives omeprazole 40 mg capsule,delayed release(DR/EC) 40 mg PO BID ondansetron 8 mg tablet,disintegrating 8 mg PO Q8H PRN sennosides [senna] 8.6 mg tablet 34.4 mg PO DAILY fluticasone propion-salmeterol [Advair Diskus] 500-50 mcg/dose blister with device See Rx Instructions .ROUTE .COMPLEX Qty: 60 12RF Dose Instruction: INHALE 1 PUFF BY MOUTH TWICE A DAY Rx Instructions: INHALE 1 PUFF BY MOUTH TWICE A DAY Fasenra Pen 30 mg/mL auto-injector 30 mg subcut Q4W Qty: 1 12RF alum-mag hydroxide-simeth [Advanced Antacid-Antigas] 200-200-20 mg/5 mL suspension 15 ml PO Q6H PRN guaifenesin [Adult Tussin Chest Congestion] 100 mg/5 mL liquid 100 mg PO Q4H PRN loperamide [Anti-Diarrheal (loperamide)] 2 mg capsule 2 mg PO Q6H PRN lidocaine 5 % adhesive patch,medicated 1 patch topical DAILY Rx Instructions: leave on most painful area for up to 12 hrs loratadine [Allerclear] 10 mg tablet 10 mg PO DAILY melatonin 3 mg tablet 3 mg PO QHS acetylcysteine 600 mg capsule 600 mg PO BID oxycodone 5 mg tablet 5 mg PO Q6H PRN sodium chloride 1 g tablet 1 g PO TID esomeprazole magnesium 40 mg capsule,delayed release(DR/EC) 40 mg PO DAILY celecoxib [Celebrex] 200 mg capsule 200 mg PO BID aspirin [Enteric Coated Aspirin] 81 mg tablet,delayed release (DR/EC) 81 mg PO DAILY gabapentin 100 mg capsule 200 mg PO BID doxycycline hyclate 100 mg Recon Soln 100 mg IVPB Q12H Qty: 18 0RF magnesium chloride [Mag 64] 64 mg Tablet,Delayed Release (Dr/Ec) 64 mg PO DAILY Qty: 30 0RF prednisone 20 mg tablet 40 mg PO DAILY Qty: 0 0RF Rx Instructions: days 11-21 of therapy lorazepam 0.5 mg tablet 0.5 mg PO TID PRN (Reason: anxiety) Qty: 30 0RF prednisone 20 mg tablet See Taper PO DAILY Qty: 20 0RF Taper: Prednisone 20mg taper 40 mg Daily for 5 Days and 0 Hour 20 mg Daily for 30 Days and 0 Hour HPI General Date/Time Provider Initiated Documentation: 09/06/24 11:34. Limitations to Documentation: no limitations. Information obtained by: patient. HPI Narrative: 79-year-old female with past medical history of COPD, oxygen dependent at 3 L presents for evaluation of shortness of breath. She reports that her worsening shortness of breath started this morning and has been progressively worsening throughout the day. She reports that she has not increased her oxygen at home. She reports that she has been using inhalers without relief. She is reports cough and subjective fever. She was brought in by EMS and was given Ativan as well as DuoNeb en route. Patient was reported to be on 3 L however was found to be on 1 L when nurse went into the room. Related Data Home Medications ?Medication ?Instructions ?Recorded ?Confirmed albuterol sulfate 2.5 mg/3 mL 2.5 mg inhalation QID PRN 02/06/22 09/06/24 (0.083 %) solution for nebulization amlodipine 2.5 mg tablet 2.5 mg PO DAILY 02/06/22 09/06/24 atorvastatin 20 mg tablet 20 mg PO DAILY 02/06/22 09/06/24 calcium 600 mg (as carbonate)-vit 1 tab PO BID 02/06/22 09/06/24 D3 10 mcg (400 unit)-minerals tablet citalopram 20 mg tablet 20 mg PO DAILY 02/06/22 09/06/24 docusate sodium 100 mg capsule 200 mg PO DAILY 02/06/22 09/06/24 fluticasone propionate 50 2 spray intranasal DAILY 02/06/22 09/06/24 mcg/actuation nasal spray,suspension levalbuterol tartrate 45 2 inh inhalation .Q6-8H PRN 02/06/22 09/06/24 mcg/actuation aerosol inhaler lorazepam 1 mg tablet 1 mg PO DAILY PRN 02/06/22 09/06/24 naloxone 4 mg/actuation nasal 1 spray intranasal Q2M PRN 02/06/22 09/06/24 spray (Narcan) naproxen sodium 220 mg tablet 440 mg PO ONCE PRN 02/06/22 09/06/24 (Aleve) omeprazole 40 mg capsule,delayed 40 mg PO BID 02/06/22 09/06/24 release ondansetron 8 mg disintegrating 8 mg PO Q8H PRN 02/06/22 09/06/24 tablet polyethylene glycol 3350 17 17 g PO DAILY PRN 02/06/22 09/06/24 gram/dose oral powder (Miralax) sennosides 8.6 mg tablet (senna) 34.4 mg PO DAILY 02/06/22 09/06/24 umeclidinium 62.5 mcg/actuation 1 inh inhalation DAILY 02/06/22 09/06/24 blister powder for inhalation (Incruse Ellipta) fluticasone 500 mcg-salmeterol 50 See Rx Instructions .Route 07/19/22 09/06/24 mcg/dose blistr powdr for .COMPLEX #60 ea inhalation (Advair Diskus) hydroxyzine HCl 50 mg tablet 50 mg PO TID 03/16/24 09/06/24 benralizumab 30 mg/mL subcutaneous 30 mg subcut Q4W #1 mL 05/03/24 09/06/24 auto-injector (Fasenra Pen) aspirin 81 mg tablet,delayed 81 mg PO DAILY 08/03/24 09/06/24 release (Enteric Coated Aspirin) gabapentin 100 mg capsule 200 mg PO BID 08/03/24 09/06/24 doxycycline hyclate 100 mg 100 mg IVPB Q12H #18 ea 08/04/24 09/06/24 intravenous powder for solution lorazepam 0.5 mg tablet 0.5 mg PO TID PRN anxiety #30 tabs 08/04/24 09/06/24 magnesium chloride 64 mg 64 mg PO DAILY #30 tabs 08/04/24 09/06/24 (magnesium chloride) tablet,delayed release (Mag 64) prednisone 20 mg tablet 40 mg (2 x 20 mg) PO DAILY #0 tabs 08/04/24 09/06/24 prednisone 20 mg tablet See Taper PO DAILY #20 tabs 08/04/24 09/06/24 acetylcysteine 600 mg capsule 600 mg PO BID 09/06/24 09/06/24 aluminum-mag hydroxide-simethicone 15 ml PO Q6H PRN 09/06/24 09/06/24 200 mg-200 mg-20 mg/5 mL oral susp (Advanced Antacid-Antigas) celecoxib 200 mg capsule (Celebrex) 200 mg PO BID 09/06/24 09/06/24 esomeprazole magnesium 40 mg 40 mg PO DAILY 09/06/24 09/06/24 capsule,delayed release guaifenesin 100 mg/5 mL oral 100 mg PO Q4H PRN 09/06/24 09/06/24 liquid (Adult Tussin Chest Congestion) lidocaine 5 % topical patch 1 patch topical DAILY 09/06/24 09/06/24 loperamide 2 mg capsule 2 mg PO Q6H PRN 09/06/24 09/06/24 (Anti-Diarrheal (loperamide)) loratadine 10 mg tablet 10 mg PO DAILY 09/06/24 09/06/24 (Allerclear) melatonin 3 mg tablet 3 mg PO QHS 09/06/24 09/06/24 oxycodone 5 mg tablet 5 mg PO Q6H PRN 09/06/24 09/06/24 sodium chloride 1 g PO TID 09/06/24 09/06/24 Previous Rx's ?Medication ?Instructions ?Recorded fluticasone 500 mcg-salmeterol 50 See Rx Instructions .Route 07/19/22 mcg/dose blistr powdr for .COMPLEX #60 ea inhalation (Advair Diskus) benralizumab 30 mg/mL subcutaneous 30 mg subcut Q4W #1 mL 05/03/24 auto-injector (Fasenra Pen) doxycycline hyclate 100 mg 100 mg IVPB Q12H #18 ea 08/04/24 intravenous powder for solution lorazepam 0.5 mg tablet 0.5 mg PO TID PRN anxiety #30 tabs 08/04/24 magnesium chloride 64 mg 64 mg PO DAILY #30 tabs 08/04/24 (magnesium chloride) tablet,delayed release (Mag 64) prednisone 20 mg tablet 40 mg (2 x 20 mg) PO DAILY #0 tabs 08/04/24 prednisone 20 mg tablet See Taper PO DAILY #20 tabs 08/04/24 Allergies Allergy/AdvReac Type Severity Reaction Status Date / Time acetaminophen AdvReac Unknown Difficulty Verified 09/06/24 11:30 breathing ,sweating General Stated Complaint: SOB/SuddenOnset ROSA: 3 Exam Narrative Exam Narrative: Review of Systems: All systems reviewed & are unremarkable except as noted in HPI and below Well-developed Afebrile NCAT RRR, no murmur respiratory distress, increased Accessory muscle use, tachypnea, oxygen saturation 76% Nondistended abdomen Extremities w/o edema Course Vital Signs Vital signs: Vital Signs Temperature 37.1 C 09/06/24 11:26 Pulse 94 H 09/06/24 11:26 Respiratory Rate 16 09/06/24 11:26 Blood Pressure 181/75 H 09/06/24 11:26 Pulse Oximetry 100 09/06/24 11:26 Temperature 36.8 C 09/06/24 14:04 Temperature Source Temporal Artery Scan 09/06/24 14:04 Pulse 103 H 09/06/24 14:02 Pulse 102 H 09/06/24 14:02 Respiratory Rate 18 09/06/24 14:02 Respiratory Effort Short of Breath, Incrsd Work of Breathing 09/06/24 11:37 Blood Pressure 97/56 L 09/06/24 14:01 Blood Pressure Mean 67 09/06/24 14:01 Pulse Oximetry 94 09/06/24 14:02 Oxygen Delivery Method Bi-pap 09/06/24 13:57 Oxygen Flow Rate 3 09/06/24 11:41 Fraction of Inspired Oxygen (FIO2) 32 09/06/24 12:15 Lab/Test Results Lab/Test Results: Laboratory Tests Range/Units 09/06/24 09/06/24 09/06/24 11:50 12:50 13:22 WBC (4.4-10.8) 10^3/uL 10.35 RBC (3.93-5.22) 10^6/uL 3.75 L Hgb (11.2-15.7) g/dL 10.0 L Hct (36.0-46.0) % 32.7 L MCV (80-95) fL 87 MCH (27.0-33.0) pg 26.7 L MCHC (32.0-36.0) % 30.6 L RDW (11.7-14.6) % 14.3 Plt Count (130-400) 10^3/uL 318 MPV (8.0-11.0) fL 9.7 Immature Gran % % 0.6 Neutrophils % % 86.6 Lymphocytes % % 4.4 Monocytes % % 7.3 Eosinophils % % 0.7 Basophils % % 0.4 Nucleated RBC % (0.0-0.3) % 0.0 Absolute Neutrophils (1.2-6.7) 10^3/uL 8.96 H Absolute Lymphocytes (1.2-3.4) 10^3/uL 0.46 L Absolute Monocytes (0.1-0.8) 10^3/uL 0.76 Absolute Eosinophils (0.0-0.7) 10^3/uL 0.07 Absolute Basophils (0.0-0.2) 10^3/uL 0.04 PT (9.1-11.1) sec 8.9 L INR (0.9-1.1) 0.9 VBG pH (7.31-7.41) 7.28 L 7.30 L VBG pCO2 (41-51) mmHg 84 H* 75 H* VBG pO2 mmHg 34 37 VBG HCO3 (23-28) mmol/L 40 H 37 H VBG Total CO2 (24-29) mmol/L 38 H 35 H VBG O2 Saturation % 57 64 VBG Base Excess (-2-3) mmol/L 13 H 10 H Sodium (136-145) mmol/L 132 L Potassium (3.5-5.1) mmol/L 3.5 Chloride (98-107) mmol/L 93 L Carbon Dioxide (21.0-32.0) mmol/L 40.5 H Anion Gap (3-11) mmol/L -1.5 L BUN (7-18) mg/dL 16 Creatinine (0.55-1.02) mg/dL 0.6 Est GFR (CKD-EPI 2020) (mL/min/1.73m2) 92.39 Glucose (74-106) mg/dL 139 H Calcium (8.5-10.1) mg/dL 8.3 L Magnesium (1.8-2.4) mg/dL 1.6 L Total Bilirubin (0.2-1.0) mg/dL 0.2 AST (15-37) U/L 23 ALT (14-59) U/L 19 Alkaline Phosphatase (46-116) U/L 63 Troponin I (<or=51) ng/L 10 12 NT-Pro-B Natriuret Pep (<300) pg/mL 169 Total Protein (6.4-8.2) g/dL 6.2 L Albumin (3.4-5.0) g/dL 3.2 L Range/Units 09/06/24 14:40 WBC (4.4-10.8) 10^3/uL RBC (3.93-5.22) 10^6/uL Hgb (11.2-15.7) g/dL Hct (36.0-46.0) % MCV (80-95) fL MCH (27.0-33.0) pg MCHC (32.0-36.0) % RDW (11.7-14.6) % Plt Count (130-400) 10^3/uL MPV (8.0-11.0) fL Immature Gran % % Neutrophils % % Lymphocytes % % Monocytes % % Eosinophils % % Basophils % % Nucleated RBC % (0.0-0.3) % Absolute Neutrophils (1.2-6.7) 10^3/uL Absolute Lymphocytes (1.2-3.4) 10^3/uL Absolute Monocytes (0.1-0.8) 10^3/uL Absolute Eosinophils (0.0-0.7) 10^3/uL Absolute Basophils (0.0-0.2) 10^3/uL PT (9.1-11.1) sec INR (0.9-1.1) VBG pH (7.31-7.41) VBG pCO2 (41-51) mmHg VBG pO2 mmHg VBG HCO3 (23-28) mmol/L VBG Total CO2 (24-29) mmol/L VBG O2 Saturation % VBG Base Excess (-2-3) mmol/L Sodium (136-145) mmol/L Potassium (3.5-5.1) mmol/L Chloride (98-107) mmol/L Carbon Dioxide (21.0-32.0) mmol/L Anion Gap (3-11) mmol/L BUN (7-18) mg/dL Creatinine (0.55-1.02) mg/dL Est GFR (CKD-EPI 2020) (mL/min/1.73m2) Glucose (74-106) mg/dL Calcium (8.5-10.1) mg/dL Magnesium (1.8-2.4) mg/dL Total Bilirubin (0.2-1.0) mg/dL AST (15-37) U/L ALT (14-59) U/L Alkaline Phosphatase (46-116) U/L Troponin I (<or=51) ng/L Cancelled NT-Pro-B Natriuret Pep (<300) pg/mL Total Protein (6.4-8.2) g/dL Albumin (3.4-5.0) g/dL Medical Decision Making Thanks emergent evaluation of respiratory distress. Initial differential includes COPD exacerbation, respiratory failure, pneumonia or other viral illness. The patient does appear to be hypoxic and definitely having increased work of breathing. On arrival to the room, it was noted that the patient had an oxygen saturation of 76%. She had been taken off of her nasal cannula momentarily so that they could get her unaddressed, and during this time, she desaturated fairly rapidly. She had just been placed back on her nasal cannula, her oxygen saturation did come back up to 98 after a few minutes. Initial plan for steroids magnesium and bronchodilator treatments initiated with lab work and chest x-ray. When VBG resulted it was noted that she was significantly hypercarbic and at that time she was started on BiPAP. Her chest x-ray was reviewed and did not reveal any focal consolidative process, however given her history of COPD and worsening symptoms, antibiotics were initiated. Her flu and COVID testing were negative. She has some mild anemia, no leukocytosis but there is a mild left shift. Her repeat VBG did demonstrate some slight improvement in her CO2 to 75, but we will continue her on BiPAP. Electrolyte derangement consisted with chronic respiratory etiology. Magnesium is 1.6 but she had been given replacement for respiratory function. Troponin and BNP are not elevated. EKG was reviewed and independently interpreted: Sinus 92 normal axis no STEMI. Given the severity of her respiratory failure, the patient was discussed with the hospitalist and will be admitted to their service for further management. Quality:SDOH Health Related Social Needs: No Data to Display Critical Care Time Critical Care Time Critical Care Time: Yes Total Critical Care Time: 34 Attestation: CRITICAL CARE Upon my evaluation, this patient had a high probability of imminent or life-threatening deterioration due to respiratory failure which required my direct attention, intervention, and personal management. I have personally provided 34 minutes of critical care time exclusive of time spent on separately billable procedures. Time includes review of laboratory data, radiology results, discussion with consultants, and monitoring for potential decompensation. Interventions were performed as documented above [facility] All Active Problems (Updated 09/06/24 @ 14:23 by Courtney Rodríguez MD) On deep vein thrombosis (DVT) prophylaxis (Acute) COPD with acute exacerbation (Acute) Acute respiratory failure with hypoxia and hypercarbia (Acute) Asthma-COPD overlap syndrome (Acute) Urge incontinence of urine (Acute) TBI (traumatic brain injury) (Acute) Peripheral edema (Acute) Neck pain (Acute) Insomnia (Acute) Hyponatremia (Acute) Hyperlipidemia (Acute) Hiatal hernia (Chronic) Headache (Acute) Fracture of shoulder (Acute) Dyspnea on exertion (Acute) Diarrhea (Acute) Constipation (Acute) Closed fracture of left proximal humerus (Acute) Chronic rhinitis (Acute) Chronic constipation (Acute) Asthma (Chronic) Arthropathy (Acute) Anxiety (Chronic) Abdominal pain (Acute) Medical History (Updated 09/06/24 @ 14:23 by Courtney Rodríguez MD) Personal history of nicotine dependence History of CVA (cerebrovascular accident) Pneumonia Surgical History (Updated 02/06/22 @ 13:41 by Ghislaine Paredes) Hx of cataract Surgery Hx of cholecystectomy History of esophagogastroduodenoscopy (EGD) 05/31/20 Social History (Updated 02/06/22 @ 13:03 by Ghislaine Paredes) Smoking/Tobacco Use Status: Former Tobacco Use tobacco type: cigarettes Quit Date: 04/28/14 Tobacco: How many years used: 15 Smoking risk assessment performed?: Yes Alcohol Intake: current Alcohol Intake frequency: holidays/special occasions only Drug use: Never Substance use type: does not use Housing: assisted Do you feel safe at home: Yes Do you feel safe in your relationship?: Yes
[2024-09-06] MEDS: cefTRIAXone 1 GM/50 ML BAG IVPB (14:16)
[2024-09-06 14:23] LABS: D-Dimer 767 ng/mlFEU (<500)
[2024-09-06] MEDS: Normal Saline 1,000 ML 1000 ML IV (14:25)
[2024-09-06 14:54] LABS: COVID-19 PCR Negative (Negative); Influenza A PCR Negative (Negative); Influenza B PCR Negative (Negative); RSV PCR Negative (Negative)
[2024-09-06 14:56] LABS: Source Nasopharynx
[2024-09-06 15:13] LABS: O2 Sat (Venous) 72 %; pH (Venous) 7.24 (7.31-7.41); pO2 (Venous) 44 mmHg
[2024-09-06 15:17] LABS: BE (Venous) 9 mmol/L (-2-3); HCO3 (Venous) 36 mmol/L (23-28); TCO2 (Venous) 35 mmol/L (24-29); pCO2 (Venous) 85 mmHg (41-51)
--- NOTE | 2024-09-06 15:55 | W.PC.ACHO ---
Registration Status: Primary Language: Preferred Language: ED Information & Data Chief Complaint SOB/SuddenOnset 09/06/24 14:23 Triage Note sudden onset SOB this am, pt 09/06/24 11:26 has hx copd and uses 3 l of o2 at home. arrives at [facility] 3l/nc. given neb and 0.5mg of ativan [employer] Medical / Surgical History (Last Updated 06/24/22 @ 07:07 by Martha Whitney MD) Personal history of nicotine dependence History of CVA (cerebrovascular accident) Pneumonia (Last Updated 02/06/22 @ 13:41 by Ghislaine Paredes) Hx of cataract Hx of cholecystectomy History of esophagogastroduodenoscopy (EGD) Most Recent Vital Signs Temperature 36.8 C 09/06/24 14:04 Temperature Source Temporal Artery Scan 09/06/24 14:04 Pulse 89 09/06/24 15:47 Pulse 88 09/06/24 15:45 Respiratory Rate 16 09/06/24 15:47 Respiratory Effort Short of Breath, Incrsd Work of Breathing 09/06/24 11:37 Blood Pressure 108/59 L 09/06/24 15:47 Blood Pressure Mean 75 09/06/24 15:47 Pulse Oximetry 95 09/06/24 15:47 Oxygen Delivery Method Nasal Cannula 09/06/24 15:00 Oxygen Flow Rate 3 09/06/24 15:00 Fraction of Inspired Oxygen (FIO2) 30 09/06/24 15:32 Allergies acetaminophen Adverse Reaction (Unknown, Verified 09/06/24 11:30) Difficulty breathing ,sweating Active Medications Generic Name Dose Route Start Last Admin Trade Name Freq PRN Reason Stop Dose Admin Sodium Chloride 0 ml 09/06/24 11:40 09/06/24 12:04 Normal Saline Flush 10 Ml Syr IVP 10 ml PRN PRN Administration IV IV Catheter Type [Right Saline Lock Antecubital] IV Catheter Gauge [Right 20 Antecubital] Diet Orders Category Date Time Status npo [Nothing Per Oral] [DIET] Nutrition 09/06/24 Dinner Active Diagnostics 09/06/24 09/06/24 09/06/24 Range/Units 14:55 14:40 14:12 WBC (4.4-10.8) 10^3/uL RBC (3.93-5.22) 10^6/uL Hgb (11.2-15.7) g/dL Hct (36.0-46.0) % MCV (80-95) fL MCH (27.0-33.0) pg MCHC (32.0-36.0) % RDW (11.7-14.6) % Plt Count (130-400) 10^3/uL MPV (8.0-11.0) fL Immature Gran % % Neutrophils % % Lymphocytes % % Monocytes % % Eosinophils % % Basophils % % Nucleated RBC % (0.0-0.3) % Absolute Neutrophils (1.2-6.7) 10^3/uL Absolute Lymphocytes (1.2-3.4) 10^3/uL Absolute Monocytes (0.1-0.8) 10^3/uL Absolute Eosinophils (0.0-0.7) 10^3/uL Absolute Basophils (0.0-0.2) 10^3/uL PT (9.1-11.1) sec INR (0.9-1.1) D-Dimer (<500) ng/mlFEU VBG pH 7.24 L (7.31-7.41) VBG pCO2 85 H* (41-51) mmHg VBG pO2 44 mmHg VBG HCO3 36 H (23-28) mmol/L VBG Total CO2 35 H (24-29) mmol/L VBG O2 Saturation 72 % VBG Base Excess 9 H (-2-3) mmol/L Sodium (136-145) mmol/L Potassium (3.5-5.1) mmol/L Chloride (98-107) mmol/L Carbon Dioxide (21.0-32.0) mmol/L Anion Gap (3-11) mmol/L BUN (7-18) mg/dL Creatinine (0.55-1.02) mg/dL Est GFR (CKD-EPI 2020) (mL/min/1.73m2) Glucose (74-106) mg/dL Calcium (8.5-10.1) mg/dL Magnesium (1.8-2.4) mg/dL Total Bilirubin (0.2-1.0) mg/dL AST (15-37) U/L ALT (14-59) U/L Alkaline Phosphatase (46-116) U/L Troponin I Cancelled (<or=51) ng/L NT-Pro-B Natriuret Pep (<300) pg/mL Total Protein (6.4-8.2) g/dL Albumin (3.4-5.0) g/dL COVID-19 Source Nasopharynx SARS-CoV-2 (PCR) Negative (Negative) Influenza Type A (PCR) Negative (Negative) Influenza Type B (PCR) Negative (Negative) RSV (PCR) Negative (Negative) 09/06/24 09/06/24 09/06/24 Range/Units 13:22 12:50 11:50 WBC 10.35 (4.4-10.8) 10^3/uL RBC 3.75 L (3.93-5.22) 10^6/uL Hgb 10.0 L (11.2-15.7) g/dL Hct 32.7 L (36.0-46.0) % MCV 87 (80-95) fL MCH 26.7 L (27.0-33.0) pg MCHC 30.6 L (32.0-36.0) % RDW 14.3 (11.7-14.6) % Plt Count 318 (130-400) 10^3/uL MPV 9.7 (8.0-11.0) fL Immature Gran % 0.6 % Neutrophils % 86.6 % Lymphocytes % 4.4 % Monocytes % 7.3 % Eosinophils % 0.7 % Basophils % 0.4 % Nucleated RBC % 0.0 (0.0-0.3) % Absolute Neutrophils 8.96 H (1.2-6.7) 10^3/uL Absolute Lymphocytes 0.46 L (1.2-3.4) 10^3/uL Absolute Monocytes 0.76 (0.1-0.8) 10^3/uL Absolute Eosinophils 0.07 (0.0-0.7) 10^3/uL Absolute Basophils 0.04 (0.0-0.2) 10^3/uL PT 8.9 L (9.1-11.1) sec INR 0.9 (0.9-1.1) D-Dimer 767 H (<500) ng/mlFEU VBG pH 7.30 L 7.28 L (7.31-7.41) VBG pCO2 75 H* 84 H* (41-51) mmHg VBG pO2 37 34 mmHg VBG HCO3 37 H 40 H (23-28) mmol/L VBG Total CO2 35 H 38 H (24-29) mmol/L VBG O2 Saturation 64 57 % VBG Base Excess 10 H 13 H (-2-3) mmol/L Sodium 132 L (136-145) mmol/L Potassium 3.5 (3.5-5.1) mmol/L Chloride 93 L (98-107) mmol/L Carbon Dioxide 40.5 H (21.0-32.0) mmol/L Anion Gap -1.5 L (3-11) mmol/L BUN 16 (7-18) mg/dL Creatinine 0.6 (0.55-1.02) mg/dL Est GFR (CKD-EPI 2020) 92.39 (mL/min/1.73m2) Glucose 139 H (74-106) mg/dL Calcium 8.3 L (8.5-10.1) mg/dL Magnesium 1.6 L (1.8-2.4) mg/dL Total Bilirubin 0.2 (0.2-1.0) mg/dL AST 23 (15-37) U/L ALT 19 (14-59) U/L Alkaline Phosphatase 63 (46-116) U/L Troponin I 12 10 (<or=51) ng/L NT-Pro-B Natriuret Pep 169 (<300) pg/mL Total Protein 6.2 L (6.4-8.2) g/dL Albumin 3.2 L (3.4-5.0) g/dL COVID-19 Source SARS-CoV-2 (PCR) (Negative) Influenza Type A (PCR) (Negative) Influenza Type B (PCR) (Negative) RSV (PCR) (Negative) Intake and Output - 24 Hour Total 09/06/24 11:18 thru 09/06/24 15:54 Intake Total 1210.000 Balance 1210.000 Weight 44.7 kg Intake: IV 1210.000 Falls Risk Assessment Cognition No cognitive impairment 09/06/24 14:04 Fall Total Score 0 09/06/24 14:04 Level of Risk Standard/Low Risk 09/06/24 14:04 Problems (Last Updated 06/24/22 @ 07:07 by Martha Whitney MD) On deep vein thrombosis (DVT) prophylaxis (Acute) COPD with acute exacerbation (Acute) Acute respiratory failure with hypoxia and hypercarbia (Acute) Asthma-COPD overlap syndrome (Acute) Hyponatremia (Acute) v v v v v v v v v Sending and/or Receiving Nurses: Please use comment section below to note any information pertinent to the patient hand-off not included above. Information / Comments: Trialed off bipap, desat to 53%. Report received from: BRI Bateman
[2024-09-06 18:32] LABS: BE (Venous) 8 mmol/L (-2-3); HCO3 (Venous) 33 mmol/L (23-28); O2 Sat (Venous) 90 %; TCO2 (Venous) 32 mmol/L (24-29); pCO2 (Venous) 58 mmHg (41-51); pH (Venous) 7.37 (7.31-7.41); pO2 (Venous) 58 mmHg
[2024-09-06] MEDS: Pantoprazole 40 MG VIAL IVP (18:39)
[2024-09-06] MEDS: Gabapentin 100 MG CAP 200 MG PO (21:46)
[2024-09-06] MEDS: Celecoxib 200 MG CAP PO (21:47)
[2024-09-06] MEDS: Acetylcysteine 600 MG CAP PO (21:47)
[2024-09-06] MEDS: methylPREDNISolone SUCC 125 MG VIAL 80 MG IVP (21:48)
[2024-09-06] MEDS: Calcium 600mg/Vit D 200U TAB 1 TAB PO (21:48)
[2024-09-06] MEDS: Melatonin 3 MG TAB PO (21:49)
--- NOTE | 2024-09-06 23:17 | TELEP.MEDR_ITS ---
Date of service: 09/06/24 Time of Service: 23:17 Telepharmacy Home Med Rec Allergies Allergies: acetaminophen Adverse Reaction (Unknown, Verified 09/06/24 11:30) Difficulty breathing ,sweating Interview Person Interviewed: * Facility med list Quality Quality of Interview/Accuracy of Medication List: Good Sources Sources used to compile medication list: [facility] Medication List and Other Changes made to Home Medication List: ADDITIONS: * none DELETIONS: * docusate * doxycycline * amlodipine * hydroxyzine * magnesium chloride * naproxen * ondansetron CHANGES: * none Additional Notes Additional Notes: * none Recommended Changes Recommended Changes(reason for recommendation): * none Attestation: The home medication list is now updated to the best of my knowledge and is ready to be reconciled by the provider. Please contact the TelePharmacy Medication Reconciliation Pharmacist at for any questions.
--- NOTE | 2024-09-06 23:17 | TELEP.MEDREC ---
Date of service: 09/06/24 Time of Service: 23:17 Telepharmacy Home Med Rec Allergies Allergies: acetaminophen Adverse Reaction (Unknown, Verified 09/06/24 11:30) Difficulty breathing ,sweating Interview Person Interviewed: Facility med list Quality Quality of Interview/Accuracy of Medication List: Good Sources Sources used to compile medication list: [facility] Medication List and Other Changes made to Home Medication List: ADDITIONS: none DELETIONS: docusate doxycycline amlodipine hydroxyzine magnesium chloride naproxen ondansetron CHANGES: none Additional Notes Additional Notes: none Recommended Changes Recommended Changes(reason for recommendation): none Attestation: The home medication list is now updated to the best of my knowledge and is ready to be reconciled by the provider. Please contact the TelePharmacy Medication Reconciliation Pharmacist at for any questions.
[2024-09-07] VITALS (138 sets, daily range): BP systolic 126–184; BP diastolic 76–149; PULSE 79–121; RESP 5–35; TEMP 36.6–37.3; O2SAT 77–100
[2024-09-07] MEDS: Albuterol/Ipratropium 3 ML UPD VIAL UPD ×3 (05:20→18:00)
[2024-09-07] MEDS: methylPREDNISolone SUCC 125 MG VIAL 80 MG IVP (05:47)
[2024-09-07 06:33] LABS: Abs Immature Grans 0.09 10^3/uL (0.0-0.06); Absolute Basophil Count 0.01 10^3/uL (0.0-0.2); Absolute Eosinophil Count 0.06 10^3/uL (0.0-0.7); Absolute Lymphocyte Count 0.22 10^3/uL (1.2-3.4); Absolute Monocyte Count 0.28 10^3/uL (0.1-0.8); Absolute Neutrophil Count 8.46 10^3/uL (1.2-6.7); Basophils % 0.1 %; Eosinophils % 0.7 %; HCT 27.9 % (36.0-46.0); HGB 8.7 g/dL (11.2-15.7); Lymphocytes % 2.4 %; MCH 26.8 pg (27.0-33.0); MCHC 31.2 % (32.0-36.0); MCV 86 fL (80-95); MPV 10.3 fL (8.0-11.0); Monocytes % 3.1 %; Neutrophils % 92.7 %; Platelet Count 300 10^3/uL (130-400); RBC 3.25 10^6/uL (3.93-5.22); RDW 14.5 % (11.7-14.6); RDW-SD 45.5 fL; WBC 9.12 10^3/uL (4.4-10.8)
[2024-09-07 06:47] LABS: Anion Gap 1.8 mmol/L (3-11); BUN 17 mg/dL (7-18); CO2 34.2 mmol/L (21.0-32.0); CREATININE 0.6 mg/dL (0.55-1.02); Calcium 8.9 mg/dL (8.5-10.1); Chloride 93 mmol/L (98-107); Estimated GFR 92.39 (mL/min/1.73m2); Glucose 140 mg/dL (74-106); Potassium 3.8 mmol/L (3.5-5.1); Sodium 129 mmol/L (136-145)
--- NOTE | 2024-09-07 08:13 | PDOC.CMIN ---
Date of service: 09/07/24 Time of Service: 08:13 Care Management Initial Assmt Initial Assessment Reason for Hospitalization: Acute on Chronic hypoxic respiratory failure Functional Status/Living Situation Patient Presentation: Brenda was awake and sitting in a chair when CM met with her. 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 Her sister from a failed kidney transplant the day before she was admitted to the Hospital. She has a sister that lives in [place], her name is Chayito and the two talk in the phone daily. She also has an older sister and the two still talk but are not real close. Brenda resides at [facility] and feels things are ok over there but could be better if she had PT. Brenda may benefit from a PT consult. CM will follow and support discharge planning conciderations. Town of Residence: [facility] Significant Other/Family: Out of area (Sister Chayito in [place]) Employment Status: Retired Instrumental Activities of Daily Living (ADLs): Requires support Medications Medication Management: No Issues/Barriers identified Physical Functioning/Mobility Assistive Device: Walker Advance Directives Advance Directives: Do you have an Advance Directive: N 09/06/24 15:32 AD On File at [facility]: N 09/06/24 15:32 Date Asked 09/06/24 09/07/24 14:24 AD Date Reviewed COLST On File at [facility] No 09/06/24 15:32 COLST Date Scanned Code Status Resuscitation Status Full Code Portal Pt does not currently have a portal and education provided: Yes Insurance Coverage/Financial Issues Insurance: Medicare Part A & B - [id number] Medicaid of [place] - [id number] Financial Issues: None identified Care Team Visit Care Team Role Provider Type Federico Ny Primary Care Provider OSTEOPATHIC DOCTOR Courtney Rodríguez MD Emergency Provider [facility] STAFF PHYSICIAN Adilson Rodriguez Admit Provider [facility] STAFF PHYSICIAN Attending Provider Discharge Potential Discharge Needs: Other (F/U Facility/community providers) Anticipated Barriers to Discharge: None Identified Patient/Family Education Needs: Review discharge instructions, discuss Ask Me Three Transportation: [facility] Plan: Brenda will discharge back to [facility] when medically cleared for discharge. [facility] will provide transportation. CM will follow. Social Determinants of Health Screening Will the Patient Participate in the Screening?: Unable to obtain Comments: pt very forgetful at this time but lives next door at [facility] All Active Problems (Updated 09/06/24 @ 14:23 by Courtney Rodríguez MD) On deep vein thrombosis (DVT) prophylaxis (Acute) COPD with acute exacerbation (Acute) Acute respiratory failure with hypoxia and hypercarbia (Acute) Asthma-COPD overlap syndrome (Acute) Urge incontinence of urine (Acute) TBI (traumatic brain injury) (Acute) Peripheral edema (Acute) Neck pain (Acute) Insomnia (Acute) Hyponatremia (Acute) Hyperlipidemia (Acute) Hiatal hernia (Chronic) Headache (Acute) Fracture of shoulder (Acute) Dyspnea on exertion (Acute) Diarrhea (Acute) Constipation (Acute) Closed fracture of left proximal humerus (Acute) Chronic rhinitis (Acute) Chronic constipation (Acute) Asthma (Chronic) Arthropathy (Acute) Anxiety (Chronic) Abdominal pain (Acute) Medical History (Updated 09/06/24 @ 14:23 by Courtney Rodríguez MD) Personal history of nicotine dependence History of CVA (cerebrovascular accident) Pneumonia Surgical History (Updated 02/06/22 @ 13:41 by Ghislaine Paredes) Hx of cataract Surgery Hx of cholecystectomy History of esophagogastroduodenoscopy (EGD) 05/31/20 Social History (Updated 02/06/22 @ 13:03 by Ghislaine Paredes) Smoking/Tobacco Use Status: Former Tobacco Use tobacco type: cigarettes Quit Date: 04/28/14 Tobacco: How many years used: 15 Smoking risk assessment performed?: Yes Alcohol Intake: current Alcohol Intake frequency: holidays/special occasions only Drug use: Never Substance use type: does not use Housing: skilled nursing Do you feel safe at home: Yes Do you feel safe in your relationship?: Yes
[2024-09-07] MEDS: Gabapentin 100 MG CAP 200 MG PO ×2 (08:21→21:13)
[2024-09-07] MEDS: Pantoprazole 40 MG VIAL IVP (08:21)
[2024-09-07] MEDS: predniSONE 20 MG TAB 40 MG PO (08:22)
[2024-09-07] MEDS: Atorvastatin 20 MG TAB PO (08:22)
[2024-09-07] MEDS: Calcium 600mg/Vit D 200U TAB 1 TAB PO ×2 (08:22→21:13)
[2024-09-07] MEDS: Aspirin E.C. 81 MG TABEC PO (08:22)
[2024-09-07] MEDS: Senna TAB 4 TAB PO (08:22)
[2024-09-07] MEDS: Celecoxib 200 MG CAP PO ×2 (08:22→21:13)
[2024-09-07] MEDS: Acetylcysteine 600 MG CAP PO ×2 (08:22→21:13)
[2024-09-07] MEDS: Citalopram 20 MG TAB PO (08:22)
[2024-09-07] MEDS: Loratidine 10 MG TAB PO (08:23)
[2024-09-07] MEDS: Normal Saline Flush 10 ML SYR IVP ×2 (08:23→21:14)
[2024-09-07] MEDS: Lidocaine 5% Patch 1 PATCH TP (08:23)
[2024-09-07] MEDS: LORazepam 0.5 MG TAB PO ×2 (09:12→21:12)
[2024-09-07] MEDS: Budesonide/Formoterol 160/4.5 6 GM 60 PUFF INH IH ×2 (09:37→19:38)
--- NOTE | 2024-09-07 09:57 | W.PM.PROGNOT ---
Date of Service Date of service: 09/07/24 Time of Service: 09:57 Assessment and Plan Assessment and plan (1) Acute respiratory failure with hypoxia and hypercarbia: Status: Acute Assessment and plan: Improved with CO2 returning to baseline after second round of BiPA, now on NC at baseline 2 liters. D-dimer below age cut-off at 770, SABAS-- negative Troponins and EKG reassuring, BNP negative, but with drop in BP in ED getting echocardiogram 09/07 treating Asthma/COPD as below. CO2 retainer, keep O2 88-91% (2) Asthma-COPD overlap syndrome: Status: Acute Assessment and plan: Hx of was on Fasenra as per pulmonology (anti-eosinophil) but not taking, likely cost issue continue Budesonide/Fometerol (3) Hyponatremia: Status: Acute Assessment and plan: Down to 129, chronic, also with acute lung infection. On oral NaCl follow (4) COPD with acute exacerbation: Status: Acute Assessment and plan: On daily prednisone s/p IV steroid in the ED, nebulized bronchodilators (5) On deep vein thrombosis (DVT) prophylaxis: Status: Acute Assessment and plan: ON LMWH Subjective Subjective Patient reports: tolerating a regular diet, nausea and shortness of breath; denies vomiting or fever Interval history since last seen: Events: Off BiPAP in evening, on NC overnight She is feeling better, but still quite SOB with any activity. Her stomach is a little upset, bloated. No BM in several days. Feels some acid reflux. Only coughing occaisionally. Hungry, eating breakfast. Exam Narrative Exam Narrative: GEN: Alert, oriented to self and place, reads wall to get the day/year. NAD. Sitting up and eating breakfast. HEENT: No rhinorrhea, MMM Resp: Shallow respiratory pattern, speaks in short sentences, decreased left base, velcro-like fimr crackles to RLL Cardio: RRR, nl S1, S2, no murmur, capillary refill<3 sec. GI: Abdomen is slightly distended and slighly firm, not tender, bowel sounds are present Extremities: moves all 4 extremities, no c/c/edema Objective Last Vital Signs Temp 36.9 C 09/07/24 07:46 Pulse 84 09/07/24 07:40 Resp 15 09/07/24 07:40 BP 142/81 H 09/07/24 06:01 Pulse Ox 91 L 09/07/24 09:39 Laboratory Results - last 24 hr 09/06/24 09/06/24 09/06/24 11:50 12:50 13:22 WBC 10.35 RBC 3.75 L Hgb 10.0 L Hct 32.7 L MCV 87 MCH 26.7 L MCHC 30.6 L RDW 14.3 Plt Count 318 MPV 9.7 Immature Gran % 0.6 Neutrophils % 86.6 Lymphocytes % 4.4 Monocytes % 7.3 Eosinophils % 0.7 Basophils % 0.4 Nucleated RBC % 0.0 Absolute Neutrophils 8.96 H Absolute Lymphocytes 0.46 L Absolute Monocytes 0.76 Absolute Eosinophils 0.07 Absolute Basophils 0.04 PT 8.9 L INR 0.9 D-Dimer 767 H VBG pH 7.28 L 7.30 L VBG pCO2 84 H* 75 H* VBG pO2 34 37 VBG HCO3 40 H 37 H VBG Total CO2 38 H 35 H VBG O2 Saturation 57 64 VBG Base Excess 13 H 10 H Sodium 132 L Potassium 3.5 Chloride 93 L Carbon Dioxide 40.5 H Anion Gap -1.5 L BUN 16 Creatinine 0.6 Est GFR (CKD-EPI 2020) 92.39 Glucose 139 H Calcium 8.3 L Magnesium 1.6 L Total Bilirubin 0.2 AST 23 ALT 19 Alkaline Phosphatase 63 Troponin I 10 12 NT-Pro-B Natriuret Pep 169 Total Protein 6.2 L Albumin 3.2 L COVID-19 Source SARS-CoV-2 (PCR) Influenza Type A (PCR) Influenza Type B (PCR) RSV (PCR) 09/06/24 09/06/24 09/06/24 14:12 14:40 14:55 WBC RBC Hgb Hct MCV MCH MCHC RDW Plt Count MPV Immature Gran % Neutrophils % Lymphocytes % Monocytes % Eosinophils % Basophils % Nucleated RBC % Absolute Neutrophils Absolute Lymphocytes Absolute Monocytes Absolute Eosinophils Absolute Basophils PT INR D-Dimer VBG pH 7.24 L VBG pCO2 85 H* VBG pO2 44 VBG HCO3 36 H VBG Total CO2 35 H VBG O2 Saturation 72 VBG Base Excess 9 H Sodium Potassium Chloride Carbon Dioxide Anion Gap BUN Creatinine Est GFR (CKD-EPI 2020) Glucose Calcium Magnesium Total Bilirubin AST ALT Alkaline Phosphatase Troponin I Cancelled NT-Pro-B Natriuret Pep Total Protein Albumin COVID-19 Source Nasopharynx SARS-CoV-2 (PCR) Negative Influenza Type A (PCR) Negative Influenza Type B (PCR) Negative RSV (PCR) Negative 09/06/24 09/07/24 18:25 05:48 WBC 9.12 RBC 3.25 L Hgb 8.7 L Hct 27.9 L MCV 86 MCH 26.8 L MCHC 31.2 L RDW 14.5 Plt Count 300 MPV 10.3 Immature Gran % 1.0 Neutrophils % 92.7 Lymphocytes % 2.4 Monocytes % 3.1 Eosinophils % 0.7 Basophils % 0.1 Nucleated RBC % 0.0 Absolute Neutrophils 8.46 H Absolute Lymphocytes 0.22 L Absolute Monocytes 0.28 Absolute Eosinophils 0.06 Absolute Basophils 0.01 PT INR D-Dimer VBG pH 7.37 VBG pCO2 58 H VBG pO2 58 VBG HCO3 33 H VBG Total CO2 32 H VBG O2 Saturation 90 VBG Base Excess 8 H Sodium 129 L Potassium 3.8 Chloride 93 L Carbon Dioxide 34.2 H Anion Gap 1.8 L BUN 17 Creatinine 0.6 Est GFR (CKD-EPI 2020) 92.39 Glucose 140 H Calcium 8.9 Magnesium 2.0 Total Bilirubin AST ALT Alkaline Phosphatase Troponin I NT-Pro-B Natriuret Pep Total Protein Albumin COVID-19 Source SARS-CoV-2 (PCR) Influenza Type A (PCR) Influenza Type B (PCR) RSV (PCR) Time Spent with Patient Time Spent with Patient: >50 minutes Time was spent: preparing to see the patient(eg.review tests), obtaining and/or reviewing separately otained hiistory, ordering medications,tests, procedures, referring, communicating with other health healthcare corporate account director, indepentently interpreting results, counseling the patient and care coordination
[2024-09-07] MEDS: DOXYCYCLINE 100 MG in Normal Saline 100 ML IVPB ×2 (10:41→21:13)
--- NOTE | 2024-09-07 12:30 | DI.US_ITS ---
APPROVED REPORT EXAM: Comprehensive 2D, Doppler, and color-flow Echocardiogram Patient Location: In-Patient Room/Bed: 221 Manual Qa Tester: Willard Farley RDCS (AE) Indications: Hypotension Conclusion Normal left ventricular wall thickness and chamber size. Ejection fraction is 60 to 65%. Wall motio n is normal Normal right ventricular size and function Both atria are normal in size There is no significant valvular disease Wall motion Left Ventricle The left ventricle is normal size. The left ventricular systolic function is normal. The left ventric ular ejection fraction is within the normal range. There is normal left ventricular wall thickness. T here is normal LV segmental wall motion. There is no ventricular septal defect visualized. LVEF is 60 -65%. Right Ventricle The right ventricle is normal size. The right ventricular systolic function is normal. Atria The left atrium size is normal. The right atrium size is normal. The interatrial septum is intact wit h no evidence for an atrial septal defect. Aortic Valve The aortic valve is normal in structure. Aortic valve is trileaflet. There is no aortic valvular sten osis. No aortic regurgitation is present. Mitral Valve Mild mitral annular calcification. No evidence of mitral valve stenosis. There is no mitral valve reg urgitation noted. Tricuspid Valve The tricuspid valve is normal in structure. There is no tricuspid valve stenosis. Trace tricuspid reg urgitation. Pulmonic Valve The pulmonary valve is normal in structure. There is no pulmonic valvular stenosis. There is no pulmo onur valvular regurgitation. Great Vessels The aortic root is normal in size. Ascending aorta is not well visualized. Aortic arch is not well vi sualized. IVC is normal in size and collapses >50% with inspiration. Pericardium There is no pericardial effusion. 2D Dimensions IVSD d PLAX 0.77 cm F: 0.6-1.0 Ao Root d 2.88 cm F: 2.7 - 3.3 LVPW d PLAX 0.78 cm F: 0.6 - 1.0 LVID d PLAX 4.52 cm F: 3.8 - 5.2 LVDs 2.96 cm F: 2.2 - 3.5 LV EF Teichholz 63.8 % FS 34.57 % LV EDV (Teich) 93.5 mL LV ESV (Teich) 33.8 mL Stroke Vol Index (Teich) 42.90 M-Mode TAPSE 2.11 cm (M/F) >1.7 Auto EF LV EDV A4C 84.9 mL LV EDV A2C 73.8 mL LV EDV BP 79.6 mL LV ESV A4C 33.9 mL LV ESV A2C 26.6 mL LV ESV BP 29.5 mL LVEF(%) A4C 60.0 % LVEF(%) A2C 64.0 % LVEF(%) BP 62.9 % LV SV A4C 51.0 ml LV SV A2C 47.3 ml LV SV BP 50.1 ml LV CO A4C 4.5 L/min LV CO A2C 4.5 L/min LV CO BP 4.5 L/min HR A4C 88.46 BPM HR A2C 96.26 BPM LV EDV Index (BP) LA Volume LA Length A4C 3.2 cm LA Length A2C 3.2 cm LA Area A4C s 7.24 cm2 LA Area A2C s 8.45 cm2 LA Vol A4C A-L 14.05 mL LA Vol A2C A-L 18.80 mL LA Vol Biplane A-L 16.4 mL LA Vol/BSA A4C A-L LA Vol/BSA A2C A-L LA Vol/BSA BP A-L 11.8 mL/m2 LA Vol A4C MOD 14.0 mL LA Vol A2C MOD 17.5 mL LA Vol BP MOD 15.7 mL RA Volume RA Area A4C 8.0 cm2 RA ESV A4C (A-L) 15.0mL RA Vol/BSA A4C A-L RA Length A4C 3.6 cm RA ESV A4C (MOD) 14.1mL LV Diastology MV E' medial 0.095 (>0.07 m/s) MV E Vmax 1.04 (0.4-1.3 m/s) MV E/E' MED 10.98 (<14) MV A Vmax 0.95 (0.4-1.3 m/s) MV E' lateral 0.092 (>0.1 m/s) E/A Ratio 1.1 MV E/E' LAT 11.30 (<14) MV E' Average 0.093 m/s MV E/E'(average) 11.14 Aortic Valve AoV Vmax 1.71 m/s LVOT Vmax 1.36 m/s AoV Peak Grad 11.7 mmHg LVOT Peak Grad 7.4 mmHg AoV Area (Vmax) 1.87 cm2 LVOT VTI 0.239 m AoV VTI 0.355 m LVOT Mean Grad 3.7 mmHg AoV Mean Shai. 1.17 m/s LVOT SV 56.52 mL AoV Mean Grad 6.3 mmHg LVOT Diam s 1.70 cm AoV Area (VTI) 1.59 cm2 AV Regurg Peak Gr. 11.74 mmHg Velocity Ratio 0.80 Mitral Valve MV DT 152 (160-240 msec) Pulmonary Valve PV Vmax 1.08 (0.5-1.5 m/s) RVOT Vmax 0.75 m/s PV Peak Grad 4.6 mmHg RVOT Peak Gr. 2.3 mmHg PV Mean Shai 0.71 m/s RVOT VTI 0.151 m PV Mean Grad 2.3 mmHg RVOT Mean Gr. 1.2 mmHg
[2024-09-07] MEDS: Polyethylene Glycol 3350 17 GM PACKET PO (12:33)
[2024-09-07] MEDS: oxyCODONE 5 MG TAB PO ×2 (12:33→21:13)
[2024-09-07] MEDS: Enoxaparin 40 MG/0.4 ML SYR SC (12:34)
--- NOTE | 2024-09-07 13:00 | RT.EKG_ITS ---
APPROVED REPORT Exam: Resting ECG Reason for Exam: chest pain Patient Location: I HR:99 bpm ECG Measurements Heart Rate 99 AXIS TX 130 P 71 QRSd 81 QRS 22 QT 322 T 73 QTc 414 Conclusion Sinus tachycardia...rate> 99 Atrial premature beat
[2024-09-07 13:55] LABS: Troponin I 20 ng/L (<or=51)
[2024-09-07 15:25] LABS: Bilirubin Negative (Negative); Blood Negative (Negative); Clarity Clear (Clear); Glucose Negative (Negative); Ketones Negative (Negative); Leukocyte Esterase Negative (Negative); Nitrite Negative (Negative); Specific Gravity <= 1.005 (1.005-1.025); Urobilinogen 0.2 mg/dL (Up to 0.2)
--- NOTE | 2024-09-07 16:03 | CHAPLAIN ---
Brenda was resting in bed when I visited. She was waiting for more imaging to done. Brenda told me that she lives in the [facility] area. She came here from [facility]. She was to a [place] [employer] and lived in [place] for many years. A sister of hers lives in [facility]. She also had a sister who the day before Brenda was admitted here. She said she's been crying, and in a phone conversation with another sister, Brenda said her other sister told her stop crying because it wouldn't help anything. I suggested Brenda cry if it would make her feel better. The sister who , was Jocelyne, she was a year older than Brenda. Brenda said Jocelyne would have been here to help her work to get home. Brenda said she doesn't now what's going on or where she's going from here. She's waiting for the doctor to tell her, sometime today, she said
[2024-09-07] MEDS: Melatonin 3 MG TAB PO (21:13)
[2024-09-07] MEDS: Patch Removal 1 EACH TP (21:14)
[2024-09-08] VITALS (277 sets, daily range): BP systolic 151–173; BP diastolic 89–120; PULSE 58–131; RESP 5–24; TEMP 36.7–37; O2SAT 75–100
[2024-09-08] MEDS: Albuterol/Ipratropium 3 ML UPD VIAL UPD ×4 (00:14→17:31)
[2024-09-08] MEDS: oxyCODONE 5 MG TAB PO ×2 (06:06→18:48)
[2024-09-08 06:20] LABS: HCT 27.3 % (36.0-46.0); HGB 8.7 g/dL (11.2-15.7); MCH 26.9 pg (27.0-33.0); MCHC 31.9 % (32.0-36.0); MCV 84 fL (80-95); MPV 10.2 fL (8.0-11.0); Platelet Count 322 10^3/uL (130-400); RBC 3.24 10^6/uL (3.93-5.22); RDW 14.5 % (11.7-14.6); RDW-SD 44.5 fL; WBC 12.38 10^3/uL (4.4-10.8)
[2024-09-08 06:41] LABS: Iron 15 ug/dL (50-170); Total Iron Binding Capacity 326 ug/dL (250-450); Transferrin Sat 5 % (15-50)
[2024-09-08 07:07] LABS: Anion Gap 2.7 mmol/L (3-11); BUN 23 mg/dL (7-18); CO2 35.3 mmol/L (21.0-32.0); CREATININE 0.5 mg/dL (0.55-1.02); Calcium 9.1 mg/dL (8.5-10.1); Chloride 90 mmol/L (98-107); Estimated GFR 96.54 (mL/min/1.73m2); Glucose 88 mg/dL (74-106); Potassium 4.5 mmol/L (3.5-5.1); Sodium 128 mmol/L (136-145); Vitamin B12 346 pg/mL (193-986)
[2024-09-08] MEDS: Budesonide/Formoterol 160/4.5 6 GM 60 PUFF INH IH ×2 (08:08→20:15)
[2024-09-08] MEDS: Pantoprazole 40 MG TABCR PO (08:14)
[2024-09-08] MEDS: Celecoxib 200 MG CAP PO ×2 (08:14→19:27)
[2024-09-08] MEDS: Gabapentin 100 MG CAP 200 MG PO ×2 (08:14→19:26)
[2024-09-08] MEDS: Calcium 600mg/Vit D 200U TAB 1 TAB PO ×2 (08:14→19:27)
[2024-09-08] MEDS: Atorvastatin 20 MG TAB PO (08:15)
[2024-09-08] MEDS: predniSONE 20 MG TAB 40 MG PO (08:15)
[2024-09-08] MEDS: Loratidine 10 MG TAB PO (08:15)
[2024-09-08] MEDS: Senna TAB 4 TAB PO (08:15)
[2024-09-08] MEDS: Lidocaine 5% Patch 1 PATCH TP (08:15)
[2024-09-08] MEDS: Aspirin E.C. 81 MG TABEC PO (08:15)
[2024-09-08] MEDS: Acetylcysteine 600 MG CAP PO ×2 (08:15→19:27)
[2024-09-08] MEDS: Citalopram 20 MG TAB PO (08:15)
[2024-09-08] MEDS: Normal Saline Flush 10 ML SYR IVP ×2 (08:26→19:28)
--- NOTE | 2024-09-08 08:32 | PDOC.CMPRO ---
Date of service: 09/08/24 Time of Service: 14:06 Care Management Progress Note Progress Note Text Progress Note Text: Brenda was sitting in a chair when CM attempted to meet with her; she is out of breath and is accompanied by her nurse. At her baseline, she becomes SOB with any amount of exertion and as a result has been sedentary over at [facility]. Her session with PT was limited by back pain and SOB and the recommendation is for her to continue to work with PT after discharge and would benefit from additional reinforcement with breath control techniques. Brenda is medically ready for discharge however [facility] is unable to accommodate her return until tomorrow morning because it's after 2pm and they have limited staffing. Licha from [facility] is going to use this opportunity to meet with Brenda this afternoon. Discharge Anticipated Barriers to Discharge: None Identified Patient/Family Education Needs: Review discharge instructions, discuss Ask Me Three Transportation: [facility] Plan: Brenda will return to [facility] tomorrow morning, [facility] has her O2 ready for transport and [facility] w/c van will provide transportation. Brenda will follow up with community/facility providers and her discharge plan of care as instructed. CM will follow. Social Determinants of Health Screening Will the Patient Participate in the Screening?: Unable to obtain Comments: pt very forgetful at this time but lives next door at [facility]
[2024-09-08] MEDS: IRON SUCROSE COMPLEX 300 MG in Normal Saline 250 ML 167 MG IVPB (09:13)
[2024-09-08] MEDS: Escitalopram 10 MG TAB 5 MG PO (09:19)
--- NOTE | 2024-09-08 10:35 | IN_ITS ---
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 Patient also diagnosed with COPD exacerbation. Patient now on 2 L/min via nasal cannula. Echo on 09/07 revealed EF 60 to 65%. Patient remains in ICU for monitoring of respiratory status. PMHX: On deep vein thrombosis (DVT) prophylaxis (Acute) COPD with acute exacerbation (Acute) Acute respiratory failure with hypoxia and hypercarbia (Acute) Asthma-COPD overlap syndrome (Acute) Urge incontinence of urine (Acute) TBI (traumatic brain injury) (Acute) Peripheral edema (Acute) Neck pain (Acute) Insomnia (Acute) Hyponatremia (Acute) Hyperlipidemia (Acute) Hiatal hernia (Chronic) Headache (Acute) Fracture of shoulder (Acute) Dyspnea on exertion (Acute) Diarrhea (Acute) Constipation (Acute) Closed fracture of left proximal humerus (Acute) Chronic rhinitis (Acute) Chronic constipation (Acute) Asthma (Chronic) Arthropathy (Acute) Anxiety (Chronic) Abdominal pain (Acute) Medical History (Updated 09/06/24 @ 14:23 by Courtney Rodríguez MD) Personal history of nicotine dependence History of CVA (cerebrovascular accident) Pneumonia Surgical History (Updated 02/06/22 @ 13:41 by Ghislaine Paredes) Hx of cataract SurgeryHx of cholecystectomy History of esophagogastroduodenoscopy (EGD) 05/31/20 Social History/Home Situation:Resides at [facility]. Pt is assist for all self care. She has FWW but uses w/c as primary mode of locomotion since her breathing has deteriorated. Equipment Owned/DME: oxygen, fww, wheelchair Subjective: She states she was able to walk short distances with PT but they stopped coming to see her. Objective: [] General Observation: elderly female seated in chair with B elbows supported , eyes closed , noted increased RR of 22 and increased work of breathing with use of accessory musculature Mental Status: Alert and orient to person only, stated in [place], used board for day and year., able to follow instructions , agreeable to assessment and motivated to have PT Pain: 5/10 low back (Nurse notified) Vitals: 90-92% at rest on 2 L via NC and with talking seated. With activity reduced to 82% on 2 L with [place] and elevated respiratory rate noted. Patient requires sit rest of 3 to 4 minutes to recover. With activity on 3 L O2 sat to 83% with standing requiring sit rest of 3 minutes to return to greater than 88%. O2 reduced to 2 L after activity. ROM: [] BUE: WFL Right Lower Extremity: WFL DF neutral Left Lower Extremity: WFL DF neutral Strength: [] BUE grossly 3/5 BLE : grossly 3/5 positive tremor/shaking BLE with exertion Sensation:intact Bed Mobility/Transfers: [] Supine to sit min assist with head of bed elevated to 40 degrees Sit to stand SBA Stand to sit SBA Bed to chair CGA with FWW Gait: Ambulated 5 feet forward and backwards with FWW CGA positive tremor/shaking bilateral UE and LE with exertion. Patient increase work of breathing sats reduced to 82% on 2 L. Patient fearful Balance: [] Static Sitting: Good Dynamic Sitting: Fair Static Standing: Fair with BUE support Dynamic Standing: Fair minus with BUE support Special Tests: [] Mobility Limitations Standardized Measure [] [facility] AM-PAC 6 clicks Basic Mobility Inpatient Short Form: [] Raw Score: 14 CMS Score: 61.29% Informed Consent/Education: Patient instructed in purpose of PT consult. Treatment: 52378 sit to stand x 4 trials at FWW with SBA Step turn transfer with FWW surface to surface with CGA x 2 trials. Patient with increased tremulous BLE BUE during transitions and increased pain in back with transitions. Patient limited by pain and compromised respiratory status. Assessment: Patient is 79-year-old female presenting with significant compromised respiratory status. Patient with increased work of breathing at rest and with activity. Patient is CO2 retainer with noted increased confusion as oxygen saturation reduces. Patient would benefit from skilled PT to improve functional activity status and strength to maximize independence within SNF. Patient presents with clinical signs and symptoms consistent with current/admitting diagnoses that have resulted to mobility limitations, gait i nstability, generalized weakness, and impairment of motor control as demonstrated by the following impairment level findings: 1. Decreased strength to BUE/BLE major muscle groups 2. Impaired standing balance 3. pain low back 4. Impaired functional activity tolerance 5. Increased work of breathing Impairments are contributing to the following functional limitations: 1. Inability to safely ambulate without assistive device 2. Increase completion time for mobility ADL performance 3. Increased fall risk 4. Decline in bed mobility skills 5. Decline in transfer skills Patient is assessed as a moderate complexity based on the following: History: 79-year-old female with impairment level findings, functional limitations, and past medical history as indicated above Examination: Demonstrable impairment in strength, balance, and mobility level with underlying impairments and functional limitations as documented above Presentation: Evolving Decision Making: Moderate Goals: 1. Supervised bed mobility 2. Supervised transfers with FWW 3. Supervised ambulation with FWW greater than 30 feet maintaining sats 88 to 91% to enable her to ambulate within her room at SNF Plan of Care/Treatment Plan: 1-2x/day, 7 days/week x 1 week. Plan of care has been reviewed with the WATER ATTENDANT providing the service under Physical Therapy direction. Initiate Physical Therapy intervention for strengthening, bed mobility, transfers, gait, stairs, balance training, use of assistive device. DISCHARGE RECOMMENDATIONS: Return to [facility] with skilled PT TREATMENT CODE/TIME: 92757, 98192/?10 14 Thank you for the opportunity to participate in the care of this patient. Jenifer Rivas PT [facility]
[2024-09-08] MEDS: Enoxaparin 40 MG/0.4 ML SYR SC (11:56)
[2024-09-08] MEDS: Doxycycline Hyclate 100 MG CAP PO ×2 (11:56→19:27)
--- NOTE | 2024-09-08 14:01 | PT.INTREAT ---
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 I just want to go home. in [place]. Nsg reports that her O2 sat dropped to 43% just before lunch. She declines getting out of bed. OBJECTIVE: []? PAIN: none VITALS: 02 sats prior to session 91%, dropped to 84%. She recovered to 88%. Back up to 91% during UE ex, and down to 89% post UE ex. ? Therapeutic Exercises ([id number]): Direct one-on-one instruction in therapeutic exercises to develop strength, endurance, range of motion and flexibility. ? Exercises: opted to hold on standing ex this pm. She was willing to participate in bed ex. AP, heel slides, and hip abd x 10 each. bicep curls, fwd reach (while holding onto my hands) and OH reach (while holding my hands) x10 ea. ? ASSESSMENT:? tolerated session fair. No c/o pain or SOB. Decreased O2 sats during any ex/ bed mobility. C/o being extremely exhausted. PLAN: will continue to progress her strength and functional mobility following PT POC. TREATMENT CODE/TIME: 22816d2 DISCHARGE RECOMMENDATION: SNF
--- NOTE | 2024-09-08 14:02 | DSE_ITS ---
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 The patient was recently discharged from [facility] on 08/04/24 s/p admission for similar presentation, she was treated with IV antibiotics and a two week steroid taper. She was noted to have deminished mental status and hypercarbia on presentation and required BiPAP to return to her baseline CO2, and was thus admitted to the ICU. She stabilized by the next day on 2 liters. Given her CO2 retention, her basal oxygen should be 2 liters rather than 3 liters at rest with a goal 02 saturation of 88-92%. She was continued on her ICS/LABA inhaler and LAMA Incruse was added. She is still waiting for her anti-eosinophil biologic therapy. She had chest pain that was most c/w musculoskeletal in her left chest wall. EKG and troponins were reassuring on admission and day #2. She did have a period of hypotension after BiPAP started, perhaps due to mild dehydration, as she improved with fluid bolus. Echocardiogram was done and was reasuring with normal LVEF. She has chronic hyponatremia and takes salt tablets. Given this, her citalopram was changed to escitalopram at a lower effective dose, and mirtazipine was added to help with her depression and sleep. She was noted to be anemic with low iron. She also has chronic epigastric pain despite PPI, and reports a history of PUD. A dose of 300mg Venofer was given for her symptomatic anemia. She was discharged on oral iron, though she may have trouble tolerating this with her chronic GI discomfort. Endoscopy should be considered and this was discussed with the patient. She should have an appointment with surgery to discuss. Pantoprazole was continued and she should resume esomeprazole as outpatient. Looks like she was on a prolonged prednisone taper which may have been making this worse. Given her complexity palliative care was consulted. She did not have time to see them before discharge, but should see them as an outpatient. She reported walking for weeks prior to admission and frequent falls. PT evaluated the patient and recommended ongoing physical therapy at rehab. Pocketing of food in the mouth and ill fitting dentures were noted. Observation of swallow and good oral hygeine should be continued at rehab. Home Meds and New Rx's Prescriptions: New doxycycline hyclate 100 mg Capsule 100 mg PO BID 3 Days Qty: 5 0RF escitalopram oxalate 10 mg Tablet 5 mg PO DAILY Qty: 30 0RF Rx Instructions: stop citalopram mirtazapine 15 mg Tablet 7.5 mg PO HS Qty: 30 0RF budesonide-formoterol [Symbicort] 160-4.5 mcg/actuation Hfa Aerosol Inhaler 2 puff inhalation BID Qty: 10.2 2RF Incruse Ellipta 62.5 mcg/actuation Blister With Device 62.5 mcg inhalation DAILY Qty: 1 3RF amoxicillin-pot clavulanate 875-125 mg tablet 1 tab PO BID 3 Days Qty: 5 0RF prednisone 20 mg Tablet See Taper PO DAILY 6 Days Qty: 7 0RF Taper: Prednisone 20mg taper 40 mg Daily for 2 Days and 0 Hour 20 mg Daily for 2 Days and 0 Hour 10 mg Daily for 2 Days and 0 Hour ferrous sulfate 325 mg (65 mg iron) tablet 325 mg PO Q OTHER DAY Qty: 30 0RF Continued fluticasone propionate 50 mcg/actuation spray,suspension 2 spray intranasal DAILY Rx Instructions: administer into each nostril polyethylene glycol 3350 [Miralax] 17 gram/dose powder 17 g PO DAILY PRN sennosides [senna] 8.6 mg tablet 17.2 mg PO BID alum-mag hydroxide-simeth [Advanced Antacid-Antigas] 200-200-20 mg/5 mL suspension 15 ml PO Q6H PRN guaifenesin [Adult Tussin Chest Congestion] 100 mg/5 mL liquid 100 mg PO Q4H PRN loperamide [Anti-Diarrheal (loperamide)] 2 mg capsule 2 mg PO Q6H PRN lidocaine 5 % adhesive patch,medicated 1 patch topical DAILY Rx Instructions: leave on most painful area for up to 12 hrs loratadine [Allerclear] 10 mg tablet 10 mg PO DAILY melatonin 3 mg tablet 3 mg PO HS PRN PRN acetylcysteine 600 mg capsule 600 mg PO BID oxycodone 5 mg tablet 5 mg PO Q6H PRN Rx Instructions: severe pain 8-10 sodium chloride 1 g tablet 1 g PO TID esomeprazole magnesium 40 mg capsule,delayed release(DR/EC) 40 mg PO BID celecoxib [Celebrex] 200 mg capsule 200 mg PO BID albuterol sulfate 1.25 mg/3 mL solution for nebulization 1.25 mg inhalation Q6H PRN PRN (Reason: shortness of breath or wheezing) aspirin 81 mg tablet,chewable 81 mg PO DAILY atorvastatin 10 mg tablet 10 mg PO DAILY bisacodyl 10 mg suppository 10 mg HI DAILY PRN PRN levalbuterol tartrate 45 mcg/actuation HFA aerosol inhaler 2 inh inhalation Q6H PRN (Reason: shortness of breath) calcium carbonate 1 tab PO Q12H PRN PRN (Reason: indigestion) sodium phosphates [Fleet Enema] 1 ea HI DAILY PRN PRN Rx Instructions: Insett one rectally Q24H PRN if no results from bisacodyl after 24 hours ipratropium-albuterol 0.5 mg-3 mg(2.5 mg base)/3 mL solution for nebulization 3 ml inhalation Q8H Patient Comments: Inhale 3 mL Q8H while awake ipratropium-albuterol 0.5 mg-3 mg(2.5 mg base)/3 mL solution for nebulization 3 ml inhalation Q6H PRN PRN (Reason: shortness of breath or wheezing) lorazepam 0.5 mg tablet 0.5 mg PO Q8H PRN PRN (Reason: anxiety) gabapentin 100 mg capsule 200 mg PO BID Discontinued citalopram 20 mg tablet 20 mg PO DAILY prednisone 20 mg tablet See Taper PO DAILY Qty: 20 0RF Taper: Prednisone 20mg taper 40 mg Daily for 5 Days and 0 Hour 20 mg Daily for 30 Days and 0 Hour Discharge Instructions Instructions: Exacerbation of COPD (DC) Additional Instructions: Your medication for depression was changed to give you less side effects You are deficient in iron and you may have some slow bleeding in your gastrointestinal system. You have been referred to surgery to discuss possible procedure to look down into your stomach. You have new inhalers to prevent more episodes of asthma/COPD You have 2 more days of antibiotics and 6 days of prednisone. follow up with pulmonology as planned. Follow up with PCP within 2 weeks: Follow blood counts Assess respiratory status coordinate referrals as below follow up mood and sodium levels after medication changes Referrals: Kacie Gage NP [NURSE PRACTITIONER] - (two recent admissions COPD/resp failure. ALso weight loss, cognitive impairment, iron deficiency anemia considering endoscopy, depression, chronic pain. ) Farhat Alcantara MD [ [facility] STAFF PHYSICIAN] - (iron deficiency anemia, h/o PUD with epigastric pain despite PPI. 25lb weight loss. also has chronic respiratory failure on oxygen. Discuss option of endoscopy?) Activity:: Activity as Tolerated Equipment/Supplies:: No Equipment Needed Diet:: As Tolerated Discharge Orders Discharge Orders: Discharge Order (Routine); Ordered 09/08/24 Ordered By: Adilson Rodriguez DS: Summary Time Spent with Patient providing and/or coordinating discharge services: Greater than 30 minutes Status at Discharge Functional status at discharge: uses cane/walker Overall status at discharge: patient is back to baseline Mental Status: mental status grossly normal Speech and Movement: speech and movement normal Mood: congruent mood Affect: sad Quality:SDOH Health Related Social Needs: No Data to Display Exam Narrative Exam Narrative: GEN: Alert, oriented to self and place, reads wall to get the day/year. NAD. Sitting up and eating Resp: Shallow respiratory pattern, speaks in short sentences, decreased left base, but improved air movement. Some purse lipped breathing after conversation or activity, imrpoves. Cardio: RRR, nl S1, S2, no murmur, capillary refill<3 sec. GI: Abdomen is soft, bowel sounds are present, mildly tender with deep palpation. Extremities: moves all 4 extremities, no c/c/edema Psych Mental Status: mental status grossly normal Speech and Movement: speech and movement normal Mood: congruent mood Affect: sad DS: Data Vitals/I&O Vitals and I&O: Vital Signs Temperature 36.9 C 09/08/24 12:00 Temperature Source Temporal Artery Scan 09/07/24 15:53 Pulse 103 H 09/08/24 13:14 Pulse 101 H 09/07/24 14:30 Respiratory Rate 19 09/08/24 11:05 Respiratory Effort Short of Breath, Incrsd Work of Breathing 09/06/24 11:37 Respiratory Depth Shallow 09/06/24 16:20 Respiratory Pattern Normal 09/06/24 16:20 Blood Pressure 173/100 H 09/08/24 10:00 Blood Pressure Mean 124 09/08/24 10:00 Pulse Oximetry 91 L 09/08/24 13:14 Oxygen Delivery Method Nasal Cannula 09/08/24 11:05 Oxygen Flow Rate 2 09/08/24 11:05 Fraction of Inspired Oxygen (FIO2) 09/07/24 08:44 Pain Level 5 09/07/24 22:54 Intake & Output 09/07/24 09/08/24 09/08/24 23:59 11:59 23:59 Intake Total 810 / 2090 Output Total 250 / 850 800 / 800 Balance 560 / 1240 -800 / -800 Weight 45 kg Intake: IV 120 / 320 Oral 690 / 1770 Output: Urine 250 / 850 800 / 800 Other: Urine Color Yellow Yellow Urine Appearance Clear Clear Urine Odor Normal Comment pt sitting on padded commode chair, stands for rn to remove and replace cover when she wants to void, urine in bucket is > 300 est. Reported to next rn that bucket needs emptying and documenting when pt in bed Data Completed and Pending Labs on day of discharge: Labs from last 24 hours 09/08/24 05:14: WBC 12.38 H, RBC 3.24 L, Hgb 8.7 L, Hct 27.3 L, MCV 84, MCH 26.9 L, MCHC 31.9 L, RDW 14.5, Plt Count 322, MPV 10.2, Sodium 128 L, Potassium 4.5, Chloride 90 L, Carbon Dioxide 35.3 H, Anion Gap 2.7 L, BUN 23 H, Creatinine 0.5 L, Est GFR (CKD-EPI 2020) 96.54, Glucose 88, Calcium 9.1, Iron 15 L, TIBC 326, Transferrin % Sat 5 L, Vitamin B12 346 09/07/24 14:23: Urine Color Yellow, Urine Clarity Clear, Urine pH 6.0, Ur Specific [place] <= 1.005, Urine Protein Negative, Urine Ketones Negative, Urine Blood Negative, Urine Nitrite Negative, Urine Bilirubin Negative, Urine Urobilinogen 0.2, Ur Leukocyte Esterase Negative, Urine Glucose Negative [facility] All Active Problems (Updated 09/06/24 @ 14:23 by Courtney Rodríguez MD) On deep vein thrombosis (DVT) prophylaxis (Acute) COPD with acute exacerbation (Acute) Acute respiratory failure with hypoxia and hypercarbia (Acute) Asthma-COPD overlap syndrome (Acute) Urge incontinence of urine (Acute) TBI (traumatic brain injury) (Acute) Peripheral edema (Acute) Neck pain (Acute) Insomnia (Acute) Hyponatremia (Acute) Hyperlipidemia (Acute) Hiatal hernia (Chronic) Headache (Acute) Fracture of shoulder (Acute) Dyspnea on exertion (Acute) Diarrhea (Acute) Constipation (Acute) Closed fracture of left proximal humerus (Acute) Chronic rhinitis (Acute) Chronic constipation (Acute) Asthma (Chronic) Arthropathy (Acute) Anxiety (Chronic) Abdominal pain (Acute) Medical History (Updated 09/06/24 @ 14:23 by Courtney Rodríguez MD) Personal history of nicotine dependence Pneumonia History of CVA (cerebrovascular accident) Surgical History (Updated 02/06/22 @ 13:41 by Ghislaine Paredes) Hx of cataract Surgery Hx of cholecystectomy History of esophagogastroduodenoscopy (EGD) 05/31/20 Social History (Updated 02/06/22 @ 13:03 by Ghislaine Paredes) Smoking/Tobacco Use Status: Former Tobacco Use tobacco type: cigarettes Quit Date: 04/28/14 Tobacco: How many years used: 15 Smoking risk assessment performed?: Yes Alcohol Intake: current Alcohol Intake frequency: holidays/special occasions only Drug use: Never Substance use type: does not use Housing: care home Do you feel safe at home: Yes Do you feel safe in your relationship?: Yes Time Spent with Patient Time Spent with Patient: 45-69 minutes Time was spent: preparing to see the patient(eg.review tests), obtaining and/or reviewing separately otained hiistory, ordering medications,tests, procedures, referring, communicating with other health resident care aide, indepentently interpreting results, counseling the patient and care coordination
--- NOTE | 2024-09-08 14:04 | PDOC.CMDIS ---
Date of service: 09/09/24 Time of Service: 08:41 LACE Index Scoring Tool Questions: Length of Stay (in days): 2 Was the patient admitted via the E.D.?: Yes Care Management Discharge Plan Reason for Hospitalization: Respiratory Failure Discharge Plan: Discharge back to [facility] via RCT w/c van. Follow up with facility provider and discharge plan of care as directed. It is recommended that Brenda resume PT after discharge. Patient/Family Education Needs: Review discharge instructions and plan to follow up after discharge. Discuss ask me three. Services Needed at Discharge: Physical Therapy (Recommend to continue after discharge), Retirement Facility ([facility] for care home care) and Transportation (RCT w/c van coordinated by CM) SDOH Health Related Social Needs: No Data to Display
--- NOTE | 2024-09-08 14:12 | W.PM.PROGNOT ---
Date of Service Date of service: 09/08/24 Time of Service: 14:12 Assessment and Plan Assessment and plan (1) Acute respiratory failure with hypoxia and hypercarbia: Status: Acute Assessment and plan: Improved with CO2 returning to baseline after second round of BiPAP 09/06-, she is still dyspenic but at her baseline 2 liters. Troponins and EKG reassuring, BNP negative, echo also reassuring 09/07 treating Asthma/COPD as below. CO2 retainer, keep O2 88-91%, make sure this is clarified at discharge, 3 liters is too much (2) Asthma-COPD overlap syndrome: Status: Acute Assessment and plan: Rx for Fasenra as per pulmonology (anti-eosinophil) but hasn't started. continue Budesonide/Fometerol, add LAMA given two recent admissions. (3) Hyponatremia: Status: Acute Assessment and plan: Chronic, also with acute lung infection. On oral NaCl Try cutting SSRI dose, see below (4) COPD with acute exacerbation: Status: Acute Assessment and plan: On daily prednisone s/p IV steroid in the ED, nebulized bronchodilators (5) Iron deficiency anemia: Status: Acute Assessment and plan: possibly contributing to SOB/fatigue. Chronic GI distress, given IV iron today. (6) Depressive disorder: Status: Chronic Assessment and plan: recent loss of sister and socail isolation complicating On citalopram 20mg but chronic hyponatremia Try change to escitalopram and lower overall dose to 5mg, should get more effect per MG add mirtazipine as alternative that is less a/w hyponatremia, helpful for insomnia and weight loss (7) Abdominal pain: Status: Acute Assessment and plan: H/o gastritis and PUD. on PPI chronically and here, but still symptoms With weight loss of #25lb and iron deficiency, should consider EGD as outpatient though risk with chronic respiratory failure (8) On deep vein thrombosis (DVT) prophylaxis: Status: Acute Assessment and plan: ON LMWH (9) Discharge planning issues: Status: Acute Assessment and plan: Health and rehab can accept 09/09, defer discharge, continue to work with PT, monitor with medication changes Subjective Subjective Patient reports: feels better, tolerating a regular diet and shortness of breath; denies nausea, vomiting or fever Interval history since last seen: Events: Floor status 09/07 Episode of chest pain, tender chest wall, EKG without changes, Troponins nevative She feels okay. still has pain in back. She is eating. No fever. Not coughing anything up now. Exam Narrative Exam Narrative: GEN: Alert, oriented to self and place, reads wall to get the day/year. NAD. Sitting up and eating Resp: Shallow respiratory pattern, speaks in short sentences, decreased left base, but improved air movement. Some purse lipped breathing after conversation or activity, imrpoves. Cardio: RRR, nl S1, S2, no murmur, capillary refill<3 sec. GI: Abdomen is soft, bowel sounds are present, mildly tender with deep palpation. Extremities: moves all 4 extremities, no c/c/edema Objective Last Vital Signs Temp 36.9 C 09/08/24 12:00 Pulse 103 H 09/08/24 13:14 Resp 19 09/08/24 11:05 BP 173/100 H 09/08/24 10:00 Pulse Ox 91 L 09/08/24 13:14 Laboratory Results - last 24 hr 09/07/24 09/08/24 14:23 05:14 WBC 12.38 H RBC 3.24 L Hgb 8.7 L Hct 27.3 L MCV 84 MCH 26.9 L MCHC 31.9 L RDW 14.5 Plt Count 322 MPV 10.2 Sodium 128 L Potassium 4.5 Chloride 90 L Carbon Dioxide 35.3 H Anion Gap 2.7 L BUN 23 H Creatinine 0.5 L Est GFR (CKD-EPI 2020) 96.54 Glucose 88 Calcium 9.1 Iron 15 L TIBC 326 Transferrin % Sat 5 L Vitamin B12 346 Urine Color Yellow Urine Clarity Clear Urine pH 6.0 Ur Specific [place] <= 1.005 Urine Protein Negative Urine Ketones Negative Urine Blood Negative Urine Nitrite Negative Urine Bilirubin Negative Urine Urobilinogen 0.2 Ur Leukocyte Esterase Negative Urine Glucose Negative Time Spent with Patient Time Spent with Patient: >50 minutes Time was spent: preparing to see the patient(eg.review tests), obtaining and/or reviewing separately otained hiistory, ordering medications,tests, procedures, referring, communicating with other health managed care specialist, indepentently interpreting results, counseling the patient and care coordination
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
[2024-09-08] MEDS: Mirtazapine 15 MG TAB 7.5 MG PO (19:27)
[2024-09-08] MEDS: Melatonin 3 MG TAB PO (19:27)
[2024-09-08] MEDS: Patch Removal 1 EACH TP (20:35)
[2024-09-09] VITALS (26 sets, daily range): BP systolic 104–162; BP diastolic 60–97; PULSE 70–108; RESP 3–20; TEMP 36.6; O2SAT 84–98
[2024-09-09] MEDS: Albuterol/Ipratropium 3 ML UPD VIAL UPD ×3 (00:03→11:56)
[2024-09-09] MEDS: Budesonide/Formoterol 160/4.5 6 GM 60 PUFF INH IH (07:57)
[2024-09-09] MEDS: Umeclidinium 7 CAP INHALER 1 CAP IH (07:58)
[2024-09-09] MEDS: Lidocaine 5% Patch 1 PATCH TP (08:37)
[2024-09-09] MEDS: Gabapentin 100 MG CAP 200 MG PO (08:37)
[2024-09-09] MEDS: Celecoxib 200 MG CAP PO (08:40)
[2024-09-09] MEDS: Calcium 600mg/Vit D 200U TAB 1 TAB PO (08:40)
[2024-09-09] MEDS: Doxycycline Hyclate 100 MG CAP PO (08:40)
[2024-09-09] MEDS: predniSONE 20 MG TAB 40 MG PO (08:41)
[2024-09-09] MEDS: Senna TAB 4 TAB PO (08:41)
[2024-09-09] MEDS: Aspirin E.C. 81 MG TABEC PO (08:41)
[2024-09-09] MEDS: Pantoprazole 40 MG TABCR PO (08:41)
[2024-09-09] MEDS: Loratidine 10 MG TAB PO (08:42)
[2024-09-09] MEDS: Acetylcysteine 600 MG CAP PO (08:42)
[2024-09-09] MEDS: Atorvastatin 20 MG TAB PO (08:42)
[2024-09-09] MEDS: Escitalopram 10 MG TAB 5 MG PO (08:42)
[2024-09-09] MEDS: Normal Saline Flush 10 ML SYR IVP (08:43)
--- NOTE | 2024-09-09 08:52 | W.PM.DS.N ---
Date of service: 09/09/24 Time of Service: 08:52 DS: Diagnosis Discharge Diagnosis (1) Acute respiratory failure with hypoxia and hypercarbia: Status: Acute (2) COPD with acute exacerbation: Status: Acute (3) Depressive disorder: Status: Chronic (4) TBI (traumatic brain injury): Status: Acute (5) ACP (advance care planning): Status: Acute (6) Palliative care encounter: Status: Acute Discharge Plan Disposition Patient Disposition: [facility] Facility(SNF) Condition: Stable Discharge Details Reason For Visit: Acute on chronic hypoxic hypercapnic resp fail,ADJUSTMENT EXAMINER Admit Date/Time: 09/06/24 15:17 Admit Provider: Adilson Rodriguez Attending Provider: Adilson Rodriguez Primary Care Provider: Federico Ny Hospital Course Hospital Course: 9-year-old female from [facility] with a 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 The patient was recently discharged from [facility] on 08/04/24 s/p admission for similar presentation, she was treated with IV antibiotics and a two week steroid taper. She was noted to have deminished mental status and hypercarbia on presentation and required BiPAP to return to her baseline CO2, and was thus admitted to the ICU. She stabilized by the next day on 2 liters at rest. Given her CO2 retention, her basal oxygen should be 1-2 liters at rest rather than 3 liters at rest with a goal 02 saturation of 88-92%. She was continued on her ICS/LABA inhaler and LAMA Incruse was added. She is still waiting for her anti-eosinophil biologic therapy. She had chest pain that was most c/w musculoskeletal in her left chest wall. EKG and troponins were reassuring on admission and day #2. She did have a period of hypotension after BiPAP started, perhaps due to mild dehydration, as she improved with fluid bolus. Echocardiogram was done and was reassuring with normal LVEF. She has chronic hyponatremia and takes salt tablets. Given this, her citalopram was changed to escitalopram at a lower effective dose, and mirtazipine was added to help with her depression and sleep. She was noted to be anemic with low iron. She also has chronic epigastric pain despite PPI, and reports a history of PUD. Two dose of 300mg Venofer was given for her symptomatic anemia. She was discharged on oral iron every other day, though she may have trouble tolerating this with her chronic GI discomfort. Endoscopy should be considered and this was discussed with the patient. She should have an appointment with surgery to discuss. Pantoprazole was continued and she should resume esomeprazole as outpatient. Looks like she was on a prolonged prednisone taper which may have been making this worse. Given her complexity palliative care was consulted. See consult for details. She reported walking for weeks prior to admission and frequent falls. PT evaluated the patient and recommended ongoing physical therapy at rehab. Pocketing of food in the mouth and ill fitting dentures were noted. Observation of swallow and good oral hygeine should be continued at rehab. Initial discharge plan 09/08 afternoon deferred to 09/09, which allowed us to observe stable respiratory status, a good response to the change in her depression medication, get her another dose of venofer, and the palliative evaluation. Follow up with PCP within 2 weeks: - Follow blood counts - Assess respiratory status - coordinate referrals as below - follow up mood and sodium levels after medication changes Home Meds and New Rx's Prescriptions: New doxycycline hyclate 100 mg Capsule 100 mg PO BID 3 Days Qty: 5 0RF escitalopram oxalate 10 mg Tablet 5 mg PO DAILY Qty: 30 0RF Rx Instructions: stop citalopram mirtazapine 15 mg Tablet 7.5 mg PO HS Qty: 30 0RF budesonide-formoterol [Symbicort] 160-4.5 mcg/actuation Hfa Aerosol Inhaler 2 puff inhalation BID Qty: 10.2 2RF Incruse Ellipta 62.5 mcg/actuation Blister With Device 62.5 mcg inhalation DAILY Qty: 1 3RF amoxicillin-pot clavulanate 875-125 mg tablet 1 tab PO BID 3 Days Qty: 5 0RF prednisone 20 mg Tablet See Taper PO DAILY 6 Days Qty: 7 0RF Taper: Prednisone 20mg taper 40 mg Daily for 2 Days and 0 Hour 20 mg Daily for 2 Days and 0 Hour 10 mg Daily for 2 Days and 0 Hour ferrous sulfate 325 mg (65 mg iron) tablet 325 mg PO Q OTHER DAY Qty: 30 0RF Continued fluticasone propionate 50 mcg/actuation spray,suspension 2 spray intranasal DAILY Rx Instructions: administer into each nostril polyethylene glycol 3350 [Miralax] 17 gram/dose powder 17 g PO DAILY PRN sennosides [senna] 8.6 mg tablet 17.2 mg PO BID alum-mag hydroxide-simeth [Advanced Antacid-Antigas] 200-200-20 mg/5 mL suspension 15 ml PO Q6H PRN guaifenesin [Adult Tussin Chest Congestion] 100 mg/5 mL liquid 100 mg PO Q4H PRN loperamide [Anti-Diarrheal (loperamide)] 2 mg capsule 2 mg PO Q6H PRN lidocaine 5 % adhesive patch,medicated 1 patch topical DAILY Rx Instructions: leave on most painful area for up to 12 hrs loratadine [Allerclear] 10 mg tablet 10 mg PO DAILY melatonin 3 mg tablet 3 mg PO HS PRN PRN acetylcysteine 600 mg capsule 600 mg PO BID oxycodone 5 mg tablet 5 mg PO Q6H PRN Rx Instructions: severe pain 8-10 sodium chloride 1 g tablet 1 g PO TID esomeprazole magnesium 40 mg capsule,delayed release(DR/EC) 40 mg PO BID celecoxib [Celebrex] 200 mg capsule 200 mg PO BID albuterol sulfate 1.25 mg/3 mL solution for nebulization 1.25 mg inhalation Q6H PRN PRN (Reason: shortness of breath or wheezing) aspirin 81 mg tablet,chewable 81 mg PO DAILY atorvastatin 10 mg tablet 10 mg PO DAILY bisacodyl 10 mg suppository 10 mg [place] DAILY PRN PRN levalbuterol tartrate 45 mcg/actuation HFA aerosol inhaler 2 inh inhalation Q6H PRN (Reason: shortness of breath) calcium carbonate 1 tab PO Q12H PRN PRN (Reason: indigestion) sodium phosphates [Fleet Enema] 1 ea [place] DAILY PRN PRN Rx Instructions: Insett one rectally Q24H PRN if no results from bisacodyl after 24 hours ipratropium-albuterol 0.5 mg-3 mg(2.5 mg base)/3 mL solution for nebulization 3 ml inhalation Q8H Patient Comments: Inhale 3 mL Q8H while awake ipratropium-albuterol 0.5 mg-3 mg(2.5 mg base)/3 mL solution for nebulization 3 ml inhalation Q6H PRN PRN (Reason: shortness of breath or wheezing) lorazepam 0.5 mg tablet 0.5 mg PO Q8H PRN PRN (Reason: anxiety) gabapentin 100 mg capsule 200 mg PO BID Discontinued citalopram 20 mg tablet 20 mg PO DAILY prednisone 20 mg tablet See Taper PO DAILY Qty: 20 0RF Taper: Prednisone 20mg taper 40 mg Daily for 5 Days and 0 Hour 20 mg Daily for 30 Days and 0 Hour Discharge Instructions Instructions: Exacerbation of COPD (DC) Additional Instructions: Your medication for depression was changed to give you less side effects You are deficient in iron and you may have some slow bleeding in your gastrointestinal system. You have been referred to surgery to discuss possible procedure to look down into your stomach. You have new inhalers to prevent more episodes of asthma/COPD You have 2 more days of antibiotics and 6 days of prednisone. follow up with pulmonology as planned. Referrals: Kacie Gage DIRECTOR OF [employer]PORATE STRATEGY [NURSE PRACTITIONER] - (two recent admissions COPD/resp failure. ALso weight loss, cognitive impairment, iron deficiency anemia considering endoscopy, depression, chronic pain. ) Farhat Alcantara MD [ [facility] STAFF PHYSICIAN] - (iron deficiency anemia, h/o PUD with epigastric pain despite PPI. 25lb weight loss. also has chronic respiratory failure on oxygen. Discuss option of endoscopy?) Activity:: Activity as Tolerated Equipment/Supplies:: No Equipment Needed Diet:: As Tolerated Discharge Orders Discharge Orders: Discharge Order (Routine); Ordered 09/08/24 Ordered By: Adilson Rodriguez DS: Summary Time Spent with Patient providing and/or coordinating discharge services: Greater than 30 minutes Status at Discharge Functional status at discharge: uses cane/walker Overall status at discharge: patient is progressing back to baseline Mental Status: other (some memory deficit) Speech and Movement: speech and movement normal Mood: congruent mood and other (some memory deficit) Affect: normal affect Quality:SDOH Health Related Social Needs: No Data to Display Exam Narrative Exam Narrative: General: older adult female, siting up in a chair drinking, alert and appropriately responsive. HEENT: dentures in place, MMM Resp: Course BS but good air movement, slight expiroatory wheeze diffusely. RR about 20 at rest, into mid 20s with activity CV: RRR, no m/g ABD: +BS, slightly firm/distended, but no focal tenderness. Ext: trace ankle edema giancarlo, warm, no c/c Psych: pleasant, cooperative, thought process impoverished; insight/judgment limited Psych Mental Status: other (some memory deficit) Speech and Movement: speech and movement normal Mood: congruent mood and other (some memory deficit) Affect: normal affect DS: Data Vitals/I&O Vitals and I&O: Vital Signs Temperature 36.6 C 09/09/24 05:36 Temperature Source Tympanic 09/08/24 20:07 Pulse 71 09/09/24 05:37 Pulse 101 H 09/07/24 14:30 Respiratory Rate 20 09/09/24 05:30 Respiratory Effort Short of Breath, Incrsd Work of Breathing 09/06/24 11:37 Respiratory Depth Shallow 09/06/24 16:20 Respiratory Pattern Normal 09/06/24 16:20 Blood Pressure 104/60 09/09/24 04:01 Blood Pressure Mean 75 09/09/24 04:01 Pulse Oximetry 94 09/09/24 05:30 Oxygen Delivery Method Nasal Cannula 09/09/24 05:30 Oxygen Flow Rate 1.5 09/09/24 05:30 Fraction of Inspired Oxygen (FIO2) 09/07/24 08:44 Pain Level 7 09/08/24 18:48 Intake & Output 09/08/24 09/08/24 09/09/24 11:59 23:59 11:59 Intake Total 635 / 635 Output Total 800 / 1200 400 / 1200 400 / 400 Balance -800 / -565 235 / -565 -390 / -390 Weight 45 kg 46.8 kg Intake: IV 275 / 275 Oral 360 / 360 Output: Urine 800 / 1200 400 / 1200 400 / 400 Other: Urine Color Yellow Yellow Urine Appearance Clear Urine Odor Normal PFSH All Active Problems (Updated 09/08/24 @ 17:26 by Kacie Gage NP) Palliative care encounter (Acute) ACP (advance care planning) (Acute) Discharge planning issues (Acute) Depressive disorder (Chronic) Iron deficiency anemia (Acute) On deep vein thrombosis (DVT) prophylaxis (Acute) COPD with acute exacerbation (Acute) Acute respiratory failure with hypoxia and hypercarbia (Acute) Asthma-COPD overlap syndrome (Acute) Urge incontinence of urine (Acute) TBI (traumatic brain injury) (Acute) Peripheral edema (Acute) Neck pain (Acute) Insomnia (Acute) Hyponatremia (Acute) Hyperlipidemia (Acute) Hiatal hernia (Chronic) Headache (Acute) Fracture of shoulder (Acute) Dyspnea on exertion (Acute) Diarrhea (Acute) Constipation (Acute) Closed fracture of left proximal humerus (Acute) Chronic rhinitis (Acute) Chronic constipation (Acute) Asthma (Chronic) Arthropathy (Acute) Anxiety (Chronic) Abdominal pain (Acute) Medical History Personal history of nicotine dependence History of CVA (cerebrovascular accident) Pneumonia Surgical History Hx of cataract Surgery Hx of cholecystectomy History of esophagogastroduodenoscopy (EGD) 05/31/20 Social History Smoking/Tobacco Use Status: Former Tobacco Use tobacco type: cigarettes Quit Date: 04/28/14 Tobacco: How many years used: 15 Smoking risk assessment performed?: Yes Alcohol Intake: current Alcohol Intake frequency: holidays/special occasions only Drug use: Never Substance use type: does not use Housing: skilled nursing Do you feel safe at home: Yes Do you feel safe in your relationship?: Yes Time Spent with Patient Time Spent with Patient: <45 minutes Time was spent: preparing to see the patient(eg.review tests), obtaining and/or reviewing separately otained hiistory, ordering medications,tests, procedures, referring, communicating with other health health care attorney, indepentently interpreting results, counseling the patient and care coordination
[2024-09-09] MEDS: IRON SUCROSE COMPLEX 300 MG in Normal Saline 250 ML 167 MG IVPB (09:53)
[2024-09-09] MEDS: Enoxaparin 40 MG/0.4 ML SYR SC (11:40)
--- NOTE | 2024-09-09 12:11 | PT.INTREAT ---
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 OBJECTIVE: Pt upright in bed ?increased RR ? PAIN: 07/05 back after walking VITALS: ? Pre-Treatment: 93% 2 L increased to 3L per RN for activity able to sustain >88% until ambulation then reduced to 83% seated rest with instruction on PLB return to 89% Ear pulse oxymeter utilized ? Therapeutic Activities ([id number]): Direct one-on-one instruction in dynamic activities to improve functional performance. ? BED MOBILITY/TRANSFERS? Rolling L/R: supervision with HOB at 30 degrees Supine-sit: supervision with HOB at 30 degrees? Sit-supine: CGA for LE with HOB at 30 degrees ? Sit-stand: SBA cues for hand placement ? Stand-sit: SBA ? Bed-Chair:SBA with FWW ? Chair-bed: SBA with FWW -Facilitated safe and correct performance of level surface ambulation covering a distance of 20 feetx2 using use front wheeled walker with contact-guard assist . Did report of increased pain in mid back. Denied headache, chest pain, and lightheadedness throughout activity. Minimal verbal cueing provided for breath control PLB Provided skilled cues and instruction on performance and technique throughout. ASSESSMENT:?Pt continues to be limited by [place], work of breathing and pain in her back. She is SBA/CGA for functional transfers and ambulation however pt desats into low 80s with activity therefore distance of ambulation has been limited to within room. She would benefit from ongoing skilled PT for pain management of her low back pain and functional mobility training PLAN: discharge to SNF TREATMENT CODE/TIME:42570/2673-7100 DISCHARGE RECOMMENDATION: return to SNF with PT services
== END 2024-09-09 12:58 | disposition skilled nursing facility (03) | DRG 190 ==
LOC: ER 15:32 → ICU 16:18
PROVIDERS: Nurse Practitioner Acute Care; Admitting Provider Family Medicine; Emergency Provider Emergency Medicine; PCP Internal Medicine; Responsible Provider Family Medicine; Visit Provider Family Medicine
DX: J44.1 Chronic obstructive pulmonary disease with (acute) exacerbation (principal); J96.21 Acute and chronic respiratory failure with hypoxia; J96.22 Acute and chronic respiratory failure with hypercapnia; E87.1 Hypo-osmolality and hyponatremia; D50.9 Iron deficiency anemia, unspecified; F32.A Depression, unspecified; R41.82 Altered mental status, unspecified; I95.9 Hypotension, unspecified; E86.0 Dehydration; R07.89 Other chest pain; G89.29 Other chronic pain; R10.13 Epigastric pain; R29.6 Repeated falls; E78.5 Hyperlipidemia, unspecified; F41.9 Anxiety disorder, unspecified; Z99.81 Dependence on supplemental oxygen; Z87.820 Personal history of traumatic brain injury; Z79.899 Other long term (current) drug therapy; Z87.11 Personal history of peptic ulcer disease
CPT/HCPCS: 00123; 36415; 80048; 80053; 82805; 85027; 87637; 93005; 93306; 94640; 94761; 96361; 96365; 96366; 96367; 96368; 96375; 97110; 97162; 97530; 99291; J1650; 71045; 81003; 82607; 83540; 83550; 83735; 83880; 84484; 85025; 85379; 85610; 93010; 94660; 94664; 94760; 99223; 99233; 99239; J0696; J1756; J2470; J2919; J3475; J3490; J7512; J7620

== ENCOUNTER 2024-10-05 01:39 | Emergency (ER) | payer MEDICARE, MEDICAID, SELFPAY ==
[2024-10-05] VITALS (15 sets, daily range): BP systolic 128–185; BP diastolic 66–84; PULSE 75–94; RESP 18–25; TEMP 35.8; O2SAT 88–98
--- NOTE | 2024-10-05 01:30 | RT.EKG_ITS ---
APPROVED REPORT Exam: Resting ECG Reason for Exam: SOB Patient Location: E HR:83 bpm ECG Measurements Heart Rate 83 AXIS MS 126 P 59 QRSd 80 QRS -4 QT 356 T 62 QTc 418 Conclusion Sinus rhythm...normal P axis, V-rate 60- 99 Normal Electrocardiogram
--- NOTE | 2024-10-05 01:40 | W.ED.GENAD ---
Discharge Plan Disposition Patient Disposition: Intermediate Facility(SNF) Condition: Stable Discharge Details Clinical Impression: Asthma-COPD overlap syndrome Primary Care Provider: Federico Ny ED Provider: Dawosn Larry [place] Meds and New Rx's Prescriptions: Continued fluticasone propionate 50 mcg/actuation spray,suspension 2 spray intranasal DAILY Rx Instructions: administer into each nostril polyethylene glycol 3350 [Miralax] 17 gram/dose powder 17 g PO DAILY PRN sennosides [senna] 8.6 mg tablet 17.2 mg PO BID alum-mag hydroxide-simeth [Advanced Antacid-Antigas] 200-200-20 mg/5 mL suspension 15 ml PO Q6H PRN guaifenesin [Adult Tussin Chest Congestion] 100 mg/5 mL liquid 100 mg PO Q4H PRN loperamide [Anti-Diarrheal (loperamide)] 2 mg capsule 2 mg PO Q6H PRN lidocaine 5 % adhesive patch,medicated 1 patch topical DAILY Rx Instructions: leave on most painful area for up to 12 hrs loratadine [Allerclear] 10 mg tablet 10 mg PO DAILY melatonin 3 mg tablet 3 mg PO HS PRN PRN acetylcysteine 600 mg capsule 600 mg PO BID oxycodone 5 mg tablet 5 mg PO Q6H PRN Rx Instructions: severe pain 8-10 sodium chloride 1 g tablet 1 g PO TID esomeprazole magnesium 40 mg capsule,delayed release(DR/EC) 40 mg PO BID celecoxib [Celebrex] 200 mg capsule 200 mg PO BID albuterol sulfate 1.25 mg/3 mL solution for nebulization 1.25 mg inhalation Q6H PRN PRN (Reason: shortness of breath or wheezing) aspirin 81 mg tablet,chewable 81 mg PO DAILY atorvastatin 10 mg tablet 10 mg PO DAILY bisacodyl 10 mg suppository 10 mg LA DAILY PRN PRN levalbuterol tartrate 45 mcg/actuation HFA aerosol inhaler 2 inh inhalation Q6H PRN (Reason: shortness of breath) calcium carbonate 1 tab PO Q12H PRN PRN (Reason: indigestion) sodium phosphates [Fleet Enema] 1 ea LA DAILY PRN PRN Rx Instructions: Insett one rectally Q24H PRN if no results from bisacodyl after 24 hours ipratropium-albuterol 0.5 mg-3 mg(2.5 mg base)/3 mL solution for nebulization 3 ml inhalation Q8H Patient Comments: Inhale 3 mL Q8H while awake ipratropium-albuterol 0.5 mg-3 mg(2.5 mg base)/3 mL solution for nebulization 3 ml inhalation Q6H PRN PRN (Reason: shortness of breath or wheezing) lorazepam 0.5 mg tablet 0.5 mg PO Q8H PRN PRN (Reason: anxiety) escitalopram oxalate 10 mg Tablet 5 mg PO DAILY Qty: 30 0RF Rx Instructions: stop citalopram mirtazapine 15 mg Tablet 7.5 mg PO HS Qty: 30 0RF budesonide-formoterol [Symbicort] 160-4.5 mcg/actuation Hfa Aerosol Inhaler 2 puff inhalation BID Qty: 10.2 2RF Incruse Ellipta 62.5 mcg/actuation Blister With Device 62.5 mcg inhalation DAILY Qty: 1 3RF ferrous sulfate 325 mg (65 mg iron) tablet 325 mg PO Q OTHER DAY Qty: 30 0RF gabapentin 100 mg capsule 200 mg PO BID Discharge Instructions Additional Instructions: You presented to the ED with desaturations and some increased work of breathing. This likely resulted from some increased activity and not being allowed to come back to baseline. You have been fine here on your 2 L nasal cannula with no desaturations. Your EKG, chest x-ray, laboratory studies are all baseline and unchanged. You may resume previous medical care and medications. Return to ED for any significant change in breathing that does not recover quickly, chest pain, altered mental status, other concerns. HPI General Mode of arrival: EMS. Date/Time Provider Initiated Documentation: 10/05/24 01:40. Limitations to Documentation: no limitations. Information obtained by: patient, EMS, RN notes reviewed and old records reviewed. HPI Narrative: Patient presents to ED by EMS from rehab for shortness of breath. Patient has history of asthma/COPD overlap syndrome. She has had previous admissions to this hospital, last 1 being in August. Per EMS rehab staff report that she became short of breath and desaturated while trying to use the commode despite help by staff. She became anxious and did receive lorazepam orally. Continued to complain of shortness of breath with low saturations and was brought to the ED. There is no report of fever or cough or illness prior to this. Denies any type of chest pain. Feels that she is breathing at baseline at this time. Related Data Home Medications ?Medication ?Instructions ?Recorded ?Confirmed fluticasone propionate 50 2 spray intranasal DAILY 02/06/22 10/05/24 mcg/actuation nasal spray,suspension polyethylene glycol 3350 17 17 g PO DAILY PRN 02/06/22 10/05/24 gram/dose oral powder (Miralax) sennosides 8.6 mg tablet (senna) 17.2 mg PO BID 02/06/22 10/05/24 gabapentin 100 mg capsule 200 mg PO BID 08/03/24 10/05/24 acetylcysteine 600 mg capsule 600 mg PO BID 09/06/24 10/05/24 albuterol sulfate 1.25 mg/3 mL 1.25 mg inhalation Q6H PRN PRN 09/06/24 10/05/24 solution for nebulization shortness of breath or wheezing aluminum-mag hydroxide-simethicone 15 ml PO Q6H PRN 09/06/24 10/05/24 200 mg-200 mg-20 mg/5 mL oral susp (Advanced Antacid-Antigas) aspirin 81 mg chewable tablet 81 mg PO DAILY 09/06/24 10/05/24 atorvastatin 10 mg tablet 10 mg PO DAILY 09/06/24 10/05/24 bisacodyl 10 mg rectal suppository 10 mg LA DAILY PRN PRN 09/06/24 10/05/24 celecoxib 200 mg capsule (Celebrex) 200 mg PO BID 09/06/24 10/05/24 esomeprazole magnesium 40 mg 40 mg PO BID 09/06/24 10/05/24 capsule,delayed release guaifenesin 100 mg/5 mL oral 100 mg PO Q4H PRN 09/06/24 10/05/24 liquid (Adult Tussin Chest Congestion) levalbuterol tartrate 45 2 inh inhalation Q6H PRN shortness 09/06/24 10/05/24 mcg/actuation aerosol inhaler of breath lidocaine 5 % topical patch 1 patch topical DAILY 09/06/24 10/05/24 loperamide 2 mg capsule 2 mg PO Q6H PRN 09/06/24 10/05/24 (Anti-Diarrheal (loperamide)) loratadine 10 mg tablet 10 mg PO DAILY 09/06/24 10/05/24 (Allerclear) melatonin 3 mg tablet 3 mg PO HS PRN PRN 09/06/24 10/05/24 oxycodone 5 mg tablet 5 mg PO Q6H PRN 09/06/24 10/05/24 sodium chloride 1 g PO TID 09/06/24 10/05/24 calcium carbonate 1 tab PO Q12H PRN PRN indigestion 09/07/24 10/05/24 ipratropium 0.5 mg-albuterol 3 mg 3 ml inhalation Q6H PRN PRN 09/07/24 10/05/24 (2.5 mg base)/3 mL nebulization shortness of breath or wheezing soln ipratropium 0.5 mg-albuterol 3 mg 3 ml inhalation Q8H 09/07/24 10/05/24 (2.5 mg base)/3 mL nebulization soln lorazepam 0.5 mg tablet 0.5 mg PO Q8H PRN PRN anxiety 09/07/24 10/05/24 sodium phosphates 1 ea LA DAILY PRN PRN 09/07/24 10/05/24 budesonide-formoterol HFA 160 2 puff inhalation BID #10.2 grams 09/08/24 10/05/24 mcg-4.5 mcg/actuation aerosol inhaler (Symbicort) escitalopram oxalate 10 mg tablet 5 mg (1/2 x 10 mg) PO DAILY #30 09/08/24 10/05/24 tabs ferrous sulfate 325 mg (65 mg 325 mg PO Q OTHER DAY #30 tabs 09/08/24 10/05/24 iron) tablet mirtazapine 15 mg tablet 7.5 mg (1/2 x 15 mg) PO HS #30 tabs 09/08/24 10/05/24 umeclidinium 62.5 mcg/actuation 62.5 mcg inhalation DAILY #1 ea 09/08/24 10/05/24 blister powder for inhalation (Incruse Ellipta) Previous Rx's ?Medication ?Instructions ?Recorded budesonide-formoterol HFA 160 2 puff inhalation BID #10.2 grams 09/08/24 mcg-4.5 mcg/actuation aerosol inhaler (Symbicort) escitalopram oxalate 10 mg tablet 5 mg (1/2 x 10 mg) PO DAILY #30 09/08/24 tabs ferrous sulfate 325 mg (65 mg 325 mg PO Q OTHER DAY #30 tabs 09/08/24 iron) tablet mirtazapine 15 mg tablet 7.5 mg (1/2 x 15 mg) PO HS #30 tabs 09/08/24 umeclidinium 62.5 mcg/actuation 62.5 mcg inhalation DAILY #1 ea 09/08/24 blister powder for inhalation (Incruse Ellipta) Allergies Allergy/AdvReac Type Severity Reaction Status Date / Time acetaminophen AdvReac Unknown Difficulty Verified 10/05/24 01:54 breathing ,sweating General ROSA: 3 Exam Narrative Exam Narrative: Const: Elderly female in NAD. VS per triage. HEENT: NC/AT. Normal facial exam. Neck: Supple. Trachea midline. Lungs: Some mild increase in work of breathing. She has some faint wheeze and rhonchi scattered throughout. Cor: RRR without murmur. Good radial pulses. GI: Soft/ND/NT. Neuro: A+O x 3. Normal speech, mentation. Cranial nerves II - XII grossly intact. No gross motor or sensory deficit. Ext: No C/C/E. Medical Decision Making Patient presenting to ED from rehab with chief complaint of shortness of breath. I have reviewed her old records, specifically the discharge summary from her August admission. Documented that she should be on 2 L nasal cannula at rest as she does have CO2 retention. She may be on 3 to 4 L nasal cannula with activity. She arrives here on 4 L nasal cannula and once settled on the stretcher and on the monitor her saturations are 97 to 98%. Oxygen is turned down to 2 L. She does have some increased work of breathing and some scattered wheeze and rhonchi which I suspect is likely patient's baseline. She is speaking without difficulty. She has no complaints of pain. I suspect that with activity and not being allowed to recover adequately likely related to her anxiety and resulting in transfer. An EKG on arrival was obtained and is remarkably normal. I will plan to watch the patient here for period of time, obtain labs including a VBG and delta troponin as well as chest x-ray. Patient's laboratory studies are all baseline. Her anemia, VBG, chemistries are all baseline. Troponin x 2 is normal. Chest x-ray per my read with no acute process and no change from previous. She has been fine here on 2 L with no desaturations. Again, due to her deconditioning and her asthma/COPD overlap syndrome any type of activity especially if it is being rushed or anxiety is likely to result in desaturations. Patient should be allowed to recover, potentially brief increase in O2 delivery but not prolonged. She is safe for discharge back to rehab. Return precautions provided. Medical Records Medical records reviewed: Yes I reviewed the patient's medical records. Medical records narrative: Hospital records/discharge summaries Imaging Data Radiologic Study: Attestation: I personally reviewed and interpreted this imaging study as follows: Imaging: X-Ray My impression: See [facility] Lab Data Lab results reviewed: Yes I reviewed the patient's lab results. Lab results narrative: See [facility] ECG Data Attestation: I personally reviewed and interpreted this ECG (s) as follows: Prior ECG tracings: available for review Interpretation: See EKG/[facility] PFSH All Active Problems (Updated 10/05/24 @ 04:05 by Dawson Larry MD) Asthma-COPD overlap syndrome (Acute) Palliative care encounter (Acute) ACP (advance care planning) (Acute) Depressive disorder (Chronic) Iron deficiency anemia (Acute) COPD with acute exacerbation (Acute) Urge incontinence of urine (Acute) Peripheral edema (Acute) Neck pain (Acute) Insomnia (Acute) Hyponatremia (Acute) Hiatal hernia (Chronic) Headache (Acute) Fracture of shoulder (Acute) Dyspnea on exertion (Acute) Diarrhea (Acute) Constipation (Acute) Closed fracture of left proximal humerus (Acute) Chronic rhinitis (Acute) Chronic constipation (Acute) Asthma (Chronic) Arthropathy (Acute) Anxiety (Chronic) Abdominal pain (Acute) Medical History Hyperlipidemia Asthma-COPD overlap syndrome TBI (traumatic brain injury) Personal history of nicotine dependence History of CVA (cerebrovascular accident) Pneumonia Surgical History Hx of cataract Surgery Hx of cholecystectomy History of esophagogastroduodenoscopy (EGD) 05/31/20 Social History Smoking/Tobacco Use Status: Former Tobacco Use tobacco type: cigarettes Quit Date: 04/28/14 Tobacco: How many years used: 15 Smoking risk assessment performed?: Yes Alcohol Intake: current Alcohol Intake frequency: holidays/special occasions only Drug use: Never Substance use type: does not use Housing: halfway Do you feel safe at home: Yes Do you feel safe in your relationship?: Yes
[2024-10-05 02:20] LABS: BE (Venous) 12 mmol/L (-2-3); HCO3 (Venous) 38 mmol/L (23-28); O2 Sat (Venous) 67 %; TCO2 (Venous) 36 mmol/L (24-29); pH (Venous) 7.38 (7.31-7.41); pO2 (Venous) 35 mmHg
[2024-10-05 02:25] LABS: pCO2 (Venous) 63 mmHg (41-51)
[2024-10-05 02:29] LABS: Abs Immature Grans 0.09 10^3/uL (0.0-0.06); Absolute Basophil Count 0.04 10^3/uL (0.0-0.2); Absolute Eosinophil Count 0.32 10^3/uL (0.0-0.7); Absolute Lymphocyte Count 0.45 10^3/uL (1.2-3.4); Absolute Monocyte Count 0.59 10^3/uL (0.1-0.8); Basophils % 0.6 %; Eosinophils % 4.5 %; HCT 30.9 % (36.0-46.0); HGB 9.1 g/dL (11.2-15.7); Immature Grans % 1.3 %; Lymphocytes % 6.3 %; MCH 27.2 pg (27.0-33.0); MCHC 29.4 % (32.0-36.0); MCV 93 fL (80-95); MPV 10.7 fL (8.0-11.0); Monocytes % 8.3 %; Platelet Count 297 10^3/uL (130-400); RBC 3.34 10^6/uL (3.93-5.22); RDW 16.1 % (11.7-14.6); RDW-SD 54.3 fL; WBC 7.09 10^3/uL (4.4-10.8)
--- NOTE | 2024-10-05 02:38 | DI.RAD_ITS ---
Exam(s) XR CHEST 2V PA LATERAL EXAM: XR CHEST 2V PA LATERAL CLINICAL HISTORY: SOB. TECHNIQUE: 2D digital imaging was performed. COMPARISON: CR XR PORTABLE CHEST AP from 09/06/2024 FINDINGS: 2 views: Heart size is normal. The mediastinum is not widened. Bilateral chronic interstitial fibrotic disease is again noted. Consistent with pulmonary fibrosis. No confluent infiltrates but there is blunting of the right costophrenic angle consistent with small right pleural effusion. Fracture of the posterior right 3rd rib again noted. No pneumothorax. IMPRESSION: Pulmonary fibrosis. No infiltrates but there appears to be a small right pleural effusion. DATA REPOSITORY: RADIATION DOSE DELIVERED:
[2024-10-05 02:43] LABS: Anion Gap 1.9 mmol/L (3-11); BUN 11 mg/dL (7-18); CO2 38.1 mmol/L (21.0-32.0); CREATININE 0.3 mg/dL (0.55-1.02); Calcium 8.4 mg/dL (8.5-10.1); Chloride 96 mmol/L (98-107); Estimated GFR 109.19 (mL/min/1.73m2); Glucose 112 mg/dL (74-106); Magnesium 1.8 mg/dL (1.8-2.4); Sodium 136 mmol/L (136-145); Troponin I 16 ng/L (<or=51)
[2024-10-05 03:43] LABS: Troponin I 14 ng/L (<or=51)
--- NOTE | 2024-10-05 03:59 | DI.VRAD_ITS ---
PROCEDURE INFORMATION: Exam: XR Chest Exam date and time: 10/05/2024 2:29 AM Age: 79 years old Clinical indication: Shortness of breath TECHNIQUE: Imaging protocol: Radiologic exam of the chest. Views: 2 views. COMPARISON: CR XR PORTABLE CHEST AP 09/06/2024 12:04 PM FINDINGS: Lungs: No significant change in diffusely increased interstitial markings. Pleural spaces: Small bilateral pleural effusions. Heart/Mediastinum: No cardiomegaly. Vasculature: Arterial calcifications. Bones/joints: Multilevel vertebral body height loss with marked compression of several midthoracic vertebral bodies. IMPRESSION: No significant interval change. Dictated and Authenticated by: Dee Dee Kat MD. Orderin Laron Osman MD
== END 2024-10-05 04:41 | disposition skilled nursing facility (03) ==
PROVIDERS: Emergency Provider Emergency Medicine; PCP Internal Medicine
DX: J44.9 Chronic obstructive pulmonary disease, unspecified (principal); J84.10 Pulmonary fibrosis, unspecified; Z86.73 Personal history of transient ischemic attack (TIA), and cerebral infarction without residual deficits; Z79.82 Long term (current) use of aspirin; Z87.891 Personal history of nicotine dependence
CPT/HCPCS: 36415; 80048; 82805; 93005; 99285; 71046; 83735; 84484; 85025; 93010; 99284

== ENCOUNTER 2024-10-22 23:04 | Outpatient (REF) | payer MEDICARE, MEDICAID, SELFPAY ==
[2024-10-22 15:08] LABS: BE (Venous) 17 mmol/L (-2-3); HCO3 (Venous) 42 mmol/L (23-28); TCO2 (Venous) 40 mmol/L (24-29); pH (Venous) 7.38 (7.31-7.41); pO2 (Venous) 171 mmHg
[2024-10-22 15:09] LABS: Abs Immature Grans 0.03 10^3/uL (0.0-0.06); Absolute Basophil Count 0.03 10^3/uL (0.0-0.2); Absolute Eosinophil Count 0.42 10^3/uL (0.0-0.7); Absolute Lymphocyte Count 0.51 10^3/uL (1.2-3.4); Absolute Monocyte Count 0.59 10^3/uL (0.1-0.8); Absolute Neutrophil Count 5.24 10^3/uL (1.2-6.7); Basophils % 0.4 %; Eosinophils % 6.2 %; HCT 32.3 % (36.0-46.0); HGB 9.3 g/dL (11.2-15.7); Immature Grans % 0.4 %; Lymphocytes % 7.5 %; MCH 27.4 pg (27.0-33.0); MCHC 28.8 % (32.0-36.0); MCV 95 fL (80-95); MPV 10.7 fL (8.0-11.0); Monocytes % 8.7 %; Neutrophils % 76.8 %; Platelet Count 205 10^3/uL (130-400); RBC 3.39 10^6/uL (3.93-5.22); RDW 15.9 % (11.7-14.6); RDW-SD 55.7 fL; WBC 6.82 10^3/uL (4.4-10.8)
[2024-10-22 15:12] LABS: pCO2 (Venous) 71 mmHg (41-51)
[2024-10-22 15:27] LABS: Anion Gap -1.6 mmol/L (3-11); BUN 30 mg/dL (7-18); CO2 42.6 mmol/L (21.0-32.0); CREATININE 0.2 mg/dL (0.55-1.02); Calcium 8.7 mg/dL (8.5-10.1); Chloride 100 mmol/L (98-107); Glucose 93 mg/dL (74-106); Potassium 4.5 mmol/L (3.5-5.1); Sodium 141 mmol/L (136-145); Troponin I 13 ng/L (<or=51)
== END 2024-10-22 23:05 | disposition home or self-care (01) ==
LOC: LBN 23:04
PROVIDERS: PCP Internal Medicine; Visit Provider Family Medicine
DX: J96.22 Acute and chronic respiratory failure with hypercapnia (principal)
CPT/HCPCS: 80048; 82805; 84484; 85025

== ENCOUNTER 2024-10-24 14:17 | Emergency (ER) | payer MEDICARE, MEDICAID, SELFPAY ==
[2024-10-24] VITALS (28 sets, daily range): PULSE 74–95; RESP 12–25; TEMP 36.2; O2SAT 81–100
--- NOTE | 2024-10-24 14:15 | RT.EKG_ITS ---
APPROVED REPORT Exam: Resting ECG Reason for Exam: SOB Patient Location: E HR:92 bpm ECG Measurements Heart Rate 92 AXIS TN 121 P 59 QRSd 81 QRS -3 QT 352 T 62 QTc 435 Conclusion Sinus rhythm at a rate of 92 without acute ischemic change
--- NOTE | 2024-10-24 14:32 | ED.GENADUL_ITS ---
Discharge Plan Disposition Patient Disposition: Home Condition: Improving Discharge Details Clinical Impression: Respiratory distress Primary Care Provider: Federico Ny ED Provider: Pilar Aparicio Home Meds and New Rx's Prescriptions: New lorazepam 0.5 mg tablet 0.5 mg PO DAILY PRN (Reason: anxiety) Qty: 20 0RF No Action morphine concentrate 100 mg/5 mL (20 mg/mL) solution 2.5 - 5 mg PO Q1-4H MDD 10 mL PRN (Reason: shortness of breath or air hunger) Qty: 30 0RF fluticasone propionate 50 mcg/actuation spray,suspension 2 spray intranasal DAILY Rx Instructions: administer into each nostril polyethylene glycol 3350 [Miralax] 17 gram/dose powder 17 g PO DAILY PRN sennosides [senna] 8.6 mg tablet 17.2 mg PO BID alum-mag hydroxide-simeth [Advanced Antacid-Antigas] 200-200-20 mg/5 mL suspension 15 ml PO Q6H PRN guaifenesin [Adult Tussin Chest Congestion] 100 mg/5 mL liquid 100 mg PO Q4H PRN loperamide [Anti-Diarrheal (loperamide)] 2 mg capsule 2 mg PO Q6H PRN lidocaine 5 % adhesive patch,medicated 1 patch topical DAILY Rx Instructions: leave on most painful area for up to 12 hrs loratadine [Allerclear] 10 mg tablet 10 mg PO DAILY melatonin 3 mg tablet 3 mg PO HS PRN PRN acetylcysteine 600 mg capsule 600 mg PO BID oxycodone 5 mg tablet 5 mg PO Q6H PRN Rx Instructions: severe pain 8-10 sodium chloride 1 g tablet 1 g PO TID esomeprazole magnesium 40 mg capsule,delayed release(DR/EC) 40 mg PO BID celecoxib [Celebrex] 200 mg capsule 200 mg PO BID albuterol sulfate 1.25 mg/3 mL solution for nebulization 1.25 mg inhalation Q6H PRN PRN (Reason: shortness of breath or wheezing) aspirin 81 mg tablet,chewable 81 mg PO DAILY atorvastatin 10 mg tablet 10 mg PO DAILY bisacodyl 10 mg suppository 10 mg WI DAILY PRN PRN levalbuterol tartrate 45 mcg/actuation HFA aerosol inhaler 2 inh inhalation Q6H PRN (Reason: shortness of breath) calcium carbonate 1 tab PO Q12H PRN PRN (Reason: indigestion) sodium phosphates [Fleet Enema] 1 ea WI DAILY PRN PRN Rx Instructions: Insett one rectally Q24H PRN if no results from bisacodyl after 24 hours ipratropium-albuterol 0.5 mg-3 mg(2.5 mg base)/3 mL solution for nebulization 3 ml inhalation Q8H Patient Comments: Inhale 3 mL Q8H while awake ipratropium-albuterol 0.5 mg-3 mg(2.5 mg base)/3 mL solution for nebulization 3 ml inhalation Q6H PRN PRN (Reason: shortness of breath or wheezing) lorazepam 0.5 mg tablet 0.5 mg PO Q8H PRN PRN (Reason: anxiety) escitalopram oxalate 10 mg Tablet 5 mg PO DAILY Qty: 30 0RF Rx Instructions: stop citalopram mirtazapine 15 mg Tablet 7.5 mg PO HS Qty: 30 0RF budesonide-formoterol [Symbicort] 160-4.5 mcg/actuation Hfa Aerosol Inhaler 2 puff inhalation BID Qty: 10.2 2RF Incruse Ellipta 62.5 mcg/actuation Blister With Device 62.5 mcg inhalation DAILY Qty: 1 3RF ferrous sulfate 325 mg (65 mg iron) tablet 325 mg PO Q OTHER DAY Qty: 30 0RF gabapentin 100 mg capsule 200 mg PO BID Discharge Instructions Instructions: Acute respiratory distress syndrome in adults - Discharge instructions Additional Instructions: Please have the patient follow-up with the Palliative Care team on Friday. Until you receive new orders from them, I recommend changing her Ativan order from 0.5 mg PO q4 hrs PRN anxiety to Ativan 0.5 mg PO q2 hrs PRN anxiety. HPI General Date/Time Provider Initiated Documentation: 10/24/24 14:22 . HPI Narrative: The patient is a 79-year-old female with a history of COPD on 2 L of supplemental oxygen who comes the emergency department for respiratory distress. History is obtained from EMS who reports that just minutes prior to emergency room arrival the patient developed respiratory distress at the [place] [facility]. Patient was found to be hypoxic with ox saturation in the 60s. custodial staff attempted to give her nebulizer treatment without improvement of her hypoxia. Per EMS the patient was found to have her nebulizer half on and off her face and hypoxic. Reports that the patient was recently evaluated in the emergency department for similar complaints. Related Data Home Medications ?Medication ?Instructions ?Recorded ?Confirmed fluticasone propionate 50 2 spray intranasal DAILY 04/1810/07/24 mcg/actuation nasal spray,suspension polyethylene glycol 3350 17 17 g PO DAILY PRN 02/06/22 10/07/24 gram/dose oral powder (Miralax) sennosides 8.6 mg tablet (senna) 17.2 mg PO BID 10/07/24 gabapentin 100 mg capsule 200 mg PO BID 08/03/2410/07 acetylcysteine 600 mg capsule 600 mg PO BID 09/06/24 0 10/07/24 albuterol sulfate 1.25 mg/3 mL 1.25 mg inhalation Q6H PRN PRN 09/06/24 10/07/24 solution for nebulization shortness of breath or wheez ing aluminum-mag hydroxide-simethicone 15 ml PO Q6H PRN 10/07/24 200 mg-200 mg-20 mg/5 mL oral susp (Advanced Antacid-Antigas) aspirin 81 mg chewable tablet 81 mg PO DAILY 09/06/24 10/07/24 atorvastatin 10 mg tablet 10 mg PO DAILY 09/06/2409/26 bisacodyl 10 mg rectal suppository 10 mg WI DAILY PRN PRN 09/06/24 10/07/24 celecoxib 200 mg capsule (Celebrex) 200 mg PO BID 08/2610/07/24 esomeprazole magnesium 40 mg 40 mg PO BID 09/06/2404/21 capsule,delayed release guaifenesin 100 mg/5 mL oral 100 mg PO Q4H PRN 5 10/07/24 liquid (Adult Tussin Chest Congestion) levalbuterol tartrate 45 2 inh inhalation Q6H PRN ugo rtness 09/06/24 10/07/24 mcg/actuation aerosol inhaler of breath lidocaine 5 % topical patch 1 patch topical DAILY 08/2610/07/24 loperamide 2 mg capsule 2 mg PO Q6H PRN 09/06/2404/21 (Anti-Diarrheal (loperamide)) loratadine 10 mg tablet 10 mg PO DAILY 09/06/2409/26 (Allerclear) melatonin 3 mg tablet 3 mg PO HS PRN PRN 09/06/24 10/07/24 oxycodone 5 mg tablet 5 mg PO Q6H PRN 09/06/2404/21 sodium chloride 1 g PO TID 09/06/24 10/07/24 calcium carbonate 1 tab PO Q12H PRN PRN indige stion 09/07/24 10/07/24 ipratropium 0.5 mg-albuterol 3 mg 3 ml inhalation Q6H PRN PRN 09/07/24 10/07/24 (2.5 mg base)/3 mL nebulization shortness of breath or wheezing soln ipratropium 0.5 mg-albuterol 3 mg 3 ml inhalation Q8H 09/07/24 10/07/24 (2.5 mg base)/3 mL nebulization soln lorazepam 0.5 mg tablet 0.5 mg PO Q8H PRN PRN anxiet y 09/07/24 10/07/24 sodium phosphates 1 ea WI DAILY PRN PRN 10/07/24 budesonide-formoterol HFA 160 2 puff inhalation BID #1 0.2 grams 09/08/24 10/07/24 mcg-4.5 mcg/actuation aerosol inhaler (Symbicort) escitalopram oxalate 10 mg tablet 5 mg (1/2 x 10 mg) P O DAILY #30 09/08/24 10/07/24 tabs ferrous sulfate 325 mg (65 mg 325 mg PO Q OTHER DAY #3 0 tabs 09/08/24 10/07/24 iron) tablet mirtazapine 15 mg tablet 7.5 mg (1/2 x 15 mg) PO HS # 30 tabs 09/08/24 10/07/24 umeclidinium 62.5 mcg/actuation 62.5 mcg inhalation DA BNEJAMIN #1 ea 09/08/24 10/07/24 blister powder for inhalation (Incruse Ellipta) morphine concentrate 100 mg/5 mL 2.5 - 5 mg (0.125 - 0 .25 mL) PO 10/07/24 10/07/24 (20 mg/mL) oral solution Q1-4H PRN shortness of breat h or air hunger #30 mL lorazepam 0.5 mg tablet 0.5 mg PO DAILY PRN anxiety #20 10/24/24 tabs Previous Rx's ?Medication ?Instructions ?Recorded budesonide-formoterol HFA 160 2 puff inhalation BID #1 0.2 grams 09/08/24 mcg-4.5 mcg/actuation aerosol inhaler (Symbicort) escitalopram oxalate 10 mg tablet 5 mg (1/2 x 10 mg) P O DAILY #30 09/08/24 tabs ferrous sulfate 325 mg (65 mg 325 mg PO Q OTHER DAY #3 0 tabs 09/08/24 iron) tablet mirtazapine 15 mg tablet 7.5 mg (1/2 x 15 mg) PO HS # 30 tabs 09/08/24 umeclidinium 62.5 mcg/actuation 62.5 mcg inhalation DA BENJAMIN #1 ea 09/08/24 blister powder for inhalation (Incruse Ellipta) morphine concentrate 100 mg/5 mL 2.5 - 5 mg (0.125 - 0 .25 mL) PO 10/07/24 (20 mg/mL) oral solution Q1-4H PRN shortness of breat h or air hunger #30 mL lorazepam 0.5 mg tablet 0.5 mg PO DAILY PRN anxiety #20 10/24/24 tabs Allergies Allergy/AdvReac Type Severity Reaction Status Date / Time acetaminophen AdvReac Unknown Difficulty Verified 10/05/24 01:54 breathing ,sweating General ROSA: 3 Review of Systems Narrative: I am unable to obtain a full review of systems secondary to patient being in respiratory distress. Exam Narrative Exam Narrative: General appearance: The patient is alert, tachypneic with use of accessory respiratory muscles and respiratory distress. Neck: No tracheal deviation noted. Respiratory: She has use of accessory respiratory muscles. She has diminished lung sounds throughout. Cardiovascular: Regular in rate and rhythm. Radial pulses are intact and equal. Gastrointestinal: The abdomen is soft and nondistended with normal bowel sounds. Nontender to palpation throughout. Neurological: The patient is alert, awake. She repeats help me, help me. Skin: Warm and dry. Extremities: No lower extremity edema or lower extremity asymmetry appreciated. Medical Decision Making The patient arrives with paperwork from the [place] [facility] with a POLST, DNR/DNI paperwork signed just 2 days ago attesting that she would only want comfort measures. For this reason I am holding off on blood work, imaging study. She was hypoxic in the 80s upon arrival. We will continue supplemental oxygen. I have ordered nebulizer treatment. I have attempted to contact the patient's sister, Chayito Aguilar. Nobody picked up but I did leave a message asking to call back to the emergency department. In the meantime I will continue to honor the patient's wishes. I have ordered Ativan for anxiolysis. The patient's nephew, Steven Fernández has called and informs me that he is on his way to see his on. Reports that he is aware that the patient signed the paperwork just 2 days ago changing her CODE STATUS. In the meantime BRI Reyes was able to speak with [facility] staff taking care of the patient, Risa. She informs Amy that the patient already has morphine and Ativan ordered for her through the hospice team. Reports that she went on a break and when she returned from her break the patient had already left to the emergency department. She is requesting more frequent dosing of her medication however and informs us that palliative care team will be seeing the patient tomorrow. She is comfortable taking the patient back. I am waiting for the patient's nep hew to arrive before disposition. For now the patient is comfortable. Adeel has since arrived. He informs me that he does visit his aunt daily. I updated him on patient presentation and patient care in the emergency department thus far and he agrees. Patient is comfortable now and no longer in respiratory distress. He is comfortable having her on to go back to the [facility]. We will contact the [facility] shortly. In the meantime I am increasing the frequency of her Ativan. She is prescribed 0.5 mg p.o. every 4 hours for anxiety and I have recommended to increase this to every 2 hours for anxiety. Evidently the patient also has visit with palliative care team for this Friday and they will be able to give further recommendations moving on. ECG Data Attestation: I personally reviewed and interpreted this ECG (s) as follows: (Sinus rhythm at a rate of 92 without acute ischemic change) [facility] All Active Problems (Updated 10/24/24 @ 16:42 by Pilar Aparicio DO) Respiratory distress (Acute) Asthma-COPD overlap syndrome (Acute) Palliative care encounter (Acute) ACP (advance care planning) (Acute) Depressive disorder (Chronic) Iron deficiency anemia (Acute) COPD with acute exacerbation (Acute) Urge incontinence of urine (Acute) Peripheral edema (Acute) Neck pain (Acute) Insomnia (Acute) Hyponatremia (Acute) Hiatal hernia (Chronic) Headache (Acute) Fracture of shoulder (Acute) Dyspnea on exertion (Acute) Diarrhea (Acute) Constipation (Acute) Closed fracture of left proximal humerus (Acute) Chronic rhinitis (Acute) Chronic constipation (Acute) Asthma (Chronic) Arthropathy (Acute) Anxiety (Chronic) Abdominal pain (Acute) Medical History Hyperlipidemia Asthma-COPD overlap syndrome TBI (traumatic brain injury) Personal history of nicotine dependence History of CVA (cerebrovascular accident) Pneumonia Surgical History Hx of cataract Surgery Hx of cholecystectomy History of esophagogastroduodenoscopy (EGD) 05/31/20 Social History Smoking/Tobacco Use Status: Former Tobacco Use tobacco type: cigarettes Quit Date: 04/28/14 Tobacco: How many years used: 15 Smoking risk assessment performed?: Yes Alcohol Intake: current Alcohol Intake frequency: holidays/special occasions only Drug use: Never Substance use type: does not use Housing: [facility] Do you feel safe at home: Yes Do you feel safe in your relationship?: Yes
[2024-10-24] MEDS: Albuterol/Ipratropium 3 ML UPD VIAL UPD (14:38)
[2024-10-24] MEDS: LORazepam 20 MG/10 ML VIAL IVP (14:55)
--- NOTE | 2024-10-26 16:18 | NUR.NOTE ---
Access chart to see who the ED provider was that saw the patient. Nephew called with questions. Natalie Fox, discharge door operator handled the call. Nursing Note:
== END 2024-10-24 18:37 | disposition home or self-care (01) ==
PROVIDERS: Emergency Provider Emergency Medicine; PCP Internal Medicine
DX: R06.03 Acute respiratory distress (principal); J44.9 Chronic obstructive pulmonary disease, unspecified; E78.5 Hyperlipidemia, unspecified; Z79.82 Long term (current) use of aspirin; Z99.81 Dependence on supplemental oxygen; Z86.73 Personal history of transient ischemic attack (TIA), and cerebral infarction without residual deficits
CPT/HCPCS: 93005; 94640; 96374; 99284; 93010; J2060; J7620